=== PATIENT | male | born 1940 | race Caucasian/White ===

== ENCOUNTER 2018-11-04 20:07 | Inpatient (IN) ==
--- OUTSIDE RECORDS SUMMARY | 2018-11-04 20:10 | External Medical Summary | Continuity of Care Document ---
:1940 Author Name Salvatore Walker Address Unavailable Unavailable , Care Team Providers Name Role Phone Luz Walker Unavailable [email or web address], [email or web address] Unavailable Unavailable Problems Active medical history not documented Allergies and Adverse Reactions Allergy history not documented Medications Medications not documented Procedures Procedures not documented Immunizations Immunizations not documented Plan of Treatment Planned Observations Planned Goals not documented Results No Known Results Results not documented
[2018-11-04 21:00] LABS: Basophils # (auto) 0.03 K/uL (0-0.2); Basophils % (auto) 0.5 %; Eosinophils # (auto) 0.33 K/uL (0-0.5); Eosinophils % (auto) 5.1 %; Hematocrit (blood only) 44.5 % (42-52); Immature Granulocytes # (auto) 0.01 K/uL (0.00-0.02); Immature Granulocytes % (auto) 0.2 %; Lymphocytes # (auto) 1.67 K/uL (1.2-3.4); Lymphocytes % (auto) 26.1 %; Mean Corpuscular Volume 91.8 fL (80-100); Mean Platelet Volume 10.3 fL (7.4-10.4); Monocytes # (auto) 0.53 K/uL (0.11-0.59); Monocytes % (auto) 8.3 %; Neutrophils # (auto) 3.84 K/uL (1.4-6.5); Neutrophils % (auto) 59.8 %; Platelet Count 156 K/uL (130-400); RDW Coefficient of Variation 12.8 % (11.5-14.5); RDW Standard Deviation 42.7 fL (36.4-46.3); Red Blood Count 4.85 M/uL (4.7-6.1); White Blood Count 6.41 K/uL (4.8-10.8)
--- NOTE | 2018-11-04 21:07 | XRay Report ---
XR chest 1V portable HISTORY: 78 years-old Male near syncope, third degree HB acute syncope COMPARISON: Chest radiograph and CTA chest 08/01/2015 TECHNIQUE: Portable AP view of the chest FINDINGS: Cardiac silhouette is enlarged, unchanged. Prosthetic mitral valve redemonstrated. Wires about the me diastinum redemonstrated. No pneumothorax, pleural effusion or overt pulmonary edema. Bilateral retic ular nodular opacities with masslike consolidation of the upper lung zones and superior elevation of the debra redemonstrated suggestive of progressive massive fibrosis. Calcified mediastinal and hilar l ymph nodes. Degenerative changes of the shoulders and spine. IMPRESSION: 1. Cardiomegaly without acute process. 2. Interstitial lung disease with suggestion of progressive massive fibrosis. The above report was generated using voice recognition software. It may contain grammatical, syntax o r spelling errors. Electronically signed by: Tim Green M.D. 11/04/2018 9:06 PM
[2018-11-04 21:09] LABS: Alanine Aminotransferase 25 U/L (12-78); Albumin Level 3.7 gm/dl (3.4-5.0); Aspartate Aminotransferase 22 U/L (15-37); BUN Creatinine Ratio 16.6 (10-20); Blood Urea Nitrogen 19 mg/dl (7-18); Calcium 9.5 mg/dl (8.5-10.1); Carbon Dioxide 28 mmol/L (21-32); Chloride 102 mmol/L (98-107); Creatinine Clr Calc Pharmacy 62.7 ml/min; Est GFR (African American) 68.8; Est GFR (Non-African American) 59.4; Glucose 134 mg/dl (70-99); Magnesium 2.1 mg/dl (1.8-2.4); Potassium 3.5 mmol/L (3.5-5.1); Sodium 137 mmol/L (136-145)
[2018-11-04 21:14] LABS: Partial Thromboplastin Time 26.8 Seconds (21.0-31.0); Prothrombin Time 10.2 Seconds (9.0-12.0)
[2018-11-04 21:24] LABS: Albumin Globulin Ratio 0.8 (0.9-2); Alkaline Phosphatase 88 U/L (45-117); Bilirubin,Total 0.3 mg/dl (0.2-1); Globulin 4.4 gm/dl (2.5-4.0); Total Protein 8.1 gm/dl (6.4-8.2); Troponin I < 0.015 ng/ml (0-0.045)
[2018-11-04 21:47] LABS: Lyme Ab IgG w/WB Rflx Negative (Negative); Lyme Ab IgM w/WB Rflx Negative (Negative)
[2018-11-04] MEDS ORDERED: ACETAMINOPHEN 325 MG TAB PO PRN (23:28)
[2018-11-04] MEDS ORDERED: NITROGLYCERIN SL 0.4 MG/TAB TAB SL PRN (23:28)
[2018-11-04] MEDS ORDERED: ONDANSETRON INJ 2 MG/ML 2 ML VIAL IV PRN (23:28)
[2018-11-04] MEDS ORDERED: CARBOHYDRATES FOR HYPOGLYCEMIA PO PRN (23:45)
[2018-11-04] MEDS ORDERED: GLUCOSE 10 TABS/TUBE PO PRN (23:45)
[2018-11-04] MEDS ORDERED: GLUCOSE 40% GEL 15 GM TUBE PO PRN (23:45)
[2018-11-04] MEDS ORDERED: GLUCAGON FOR INJ 1 MG VIAL SQ PRN (23:45)
[2018-11-04] MEDS ORDERED: DEXTROSE 50% 50 ML SYRINGE IV PRN (23:45)
[2018-11-05] MEDS: ANORO ELLIPTA~ORDER AWAITING ACTION SCH ×4 (00:34→23:09)
--- NOTE | 2018-11-05 01:44 | Emergency Department Note ---
Entered by Ivette Wells acting as a scribe for History of Present Illness General Chief complaint: Arrhythmia/Palpitations Stated complaint: SKIPPING HEART Source: patient History of Present Illness Onset (ago): day(s) (several) Location: head Pain Consistency: + intermittent and + other (episodes) Maximum Pain Intensity: 0 Quality: + other (near syncope) Relieved By: + none Exacerbated By: + none The patient is a 78 year old male who presents to the Emergency Room with c omplaints of intermittent episodes of near syncope that began several days ago. The patient states that these episodes on their own, and states that nothing relieves or exacerbates these episodes. The patient was wearing a halter monitor and was found to be in complete heart block, by report. Pt states the cards fellow at [facility] called the pt and referred him to the closest ED. Home Medications Home Medications Medication Instructions Recorded Confirmed Type Anoro Ellipta 1 inh INHALATION DAILY 11/04/18 11/04/18 History amlodipine 2.5 mg PO DAILY 11/04/18 11/04/18 History amoxicillin 2,000 mg PO DIRECTED PRN 11/04/18 11/04/18 History aspirin [Aspir-81] 81 mg PO DAILY 11/04/18 11/04/18 History atorvastatin 10 mg PO HS 11/04/18 11/04/18 History cyanocobalamin (vitamin B-12) 1,000 mcg PO DAILY 11/04/18 11/04/18 History [Vitamin B-12] doxazosin 8 mg PO HS 11/04/18 11/04/18 History finasteride 5 mg PO QPM 11/04/18 11/04/18 History fluticasone propionate [Flonase 1 spray INTRANASAL DAILY 11/04/18 11/04/18 History Allergy Relief] hydrochlorothiazide 12.5 mg PO DAILY 11/04/18 11/04/18 History losartan 100 mg PO DAILY 11/04/18 11/04/18 History metformin 500 mg PO BIDM 11/04/18 11/04/18 History montelukast [Singulair] 10 mg PO PM 11/04/18 11/04/18 History acetaminophen [Mapap 325 mg PO Q6H PRN 5 Days #20 tab 11/06/18 Rx (acetaminophen)] metoprolol succinate 50 mg PO QAM 30 Days #30 tab 11/06/18 Rx Allergies Allergy/AdvReac Type Severity Reaction Status Date / Time pravastatin Allergy Severe MUSCLE, Verified 11/04/18 21:26 BODY ACHES Past Med/Surg History Medical History HTN (hypertension) (Chronic) COPD, moderate (Chronic) RBBB (Chronic) BPH (benign prostatic hyperplasia) (Chronic) Dyslipidemia (Chronic) Pulmonary fibrosis (Chronic) CAD (coronary artery disease) (Chronic) "cath 10/2011 - 60% mid LAD stenosis" Valvular cardiomyopathy (Resolved) Surgical History H/O inguinal hernia repair (Chronic) History of total left hip replacement (Chronic) "and revision" 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 and A total of 10 systems reviewed and were otherwise negative Physical Exam Vital Signs Vital Signs - 24 hr 11/06/18 10:29 Temperature 36.9 C Pulse Rate [Apical] 61 Respiratory Rate 16 Blood Pressure [Left Arm] 130/80 Blood Pressure [Right Arm] 148/68 H Pulse Oximetry 94 Vital signs reviewed. General: Well-appearing male, in no significant distress. HEENT: No scleral icterus, PERRLA, neck supple. Atraumatic. Cardiovascular: Regular rate and rhythm. Systolic ejection murmur with occasional ectopy. Pulmonary: Clear to auscultation bilaterally, normal work of breathing. Abdomen: Soft, nontender, nondistended, positive bowel sounds. Musculoskeletal: Atraumatic, no peripheral edema. Neurologic: Patient awake alert and oriented x 3. Skin: Warm, dry, no rash Course 2031: The patient was evaluated in room B1, and a complete history and physical examination were performed. 2214: I discussed the case with Dr. Carpenter Hospitalist who accepted the patient for further evaluation. Consultations Consultation #1: I discussed the case with Dr. Carpenter Hospitalist who accepted the patient for further evaluation. Time: 22:15 Administered Medications Discontinued Medications Acetaminophen (Tylenol) 650 mg PO Q4H PRN PRN Reason: Pain or Fever Stop: 12/04/18 23:27 Last Admin: 11/05/18 20:06 Dose: 650 mg Documented by: [id number] Amlodipine Besylate (Norvasc) 2.5 mg PO DAILY [facility] Stop: 12/05/18 08:59 Last Admin: 11/06/18 08:06 Dose: 2.5 mg Documented by: [id number] Admin: 11/05/18 07:23 Dose: 2.5 mg Documented by: [id number] Aspirin (Ecotrin Ectab) 81 mg PO DAILY [facility] Stop: 12/05/18 08:59 Last Admin: 11/06/18 08:06 Dose: 81 mg Documented by: [id number] Admin: 11/05/18 07:22 Dose: 81 mg Documented by: [id number] Atorvastatin Calcium (Lipitor) 10 mg PO HS [facility] Stop: 12/05/18 20:59 Last Admin: 11/05/18 20:05 Dose: 10 mg Documented by: [id number] Bacitracin (Bacitracin) Confirm Administered Dose 50,000 units .ROUTE .STK-MED ONE Stop: 11/05/18 10:59 Last Admin: 11/05/18 11:46 Dose: 50,000 units Documented by: [id number] Bupivacaine HCl (Sensorcaine 0.25% Inj) Confirm Administered Dose 30 ml .ROUTE .STK-MED ONE Stop: 11/05/18 10:59 Last Admin: 11/05/18 11:46 Dose: 30 ml Documented by: [id number] Cefazolin Sodium (Ancef) Confirm Administered Dose 2,000 mg .ROUTE .STK-MED ONE Stop: 11/05/18 11:10 Last Admin: 11/05/18 11:46 Dose: 2,000 mg Documented by: [id number] Cyanocobalamin (Vitamin B-12) 1,000 mcg PO DAILY [facility] Stop: 12/05/18 08:59 Last Admin: 11/06/18 08:06 Dose: 1,000 mcg Documented by: [id number] Admin: 11/05/18 07:23 Dose: 1,000 mcg Documented by: [id number] Doxazosin Mesylate (Cardura) 8 mg PO HS [facility] Stop: 12/05/18 20:59 Last Admin: 11/05/18 20:05 Dose: 8 mg Documented by: [id number] Fentanyl Citrate (Fentanyl Citrate) Confirm Administered Dose 100 mcg .ROUTE .STK-MED ONE Stop: 11/05/18 10:59 Last Increment: 11/05/18 12:38 Dose: 75 mcg Documented by: [id number] Finasteride (Proscar) 5 mg PO QPM [facility] Stop: 12/05/18 20:59 Last Admin: 11/05/18 20:04 Dose: 5 mg Documented by: [id number] Fluticasone Propionate (Flonase) 1 sprays NA DAILY [facility] Stop: 12/05/18 08:59 Last Admin: 11/06/18 08:06 Dose: Not Given Documented by: [id number] Admin: 11/05/18 07:20 Dose: Not Given Documented by: [id number] Hydrochlorothiazide (Hctz) 12.5 mg PO DAILY [facility] Stop: 12/05/18 08:59 Last Admin: 11/06/18 08:06 Dose: 12.5 mg Documented by: [id number] Admin: 11/05/18 07:22 Dose: 12.5 mg Documented by: [id number] Cefazolin Sodium (Ancef 2000mg) 2,000 mg in 15 mls @ 3.75 mls/min IV Q8H [facility]; Protocol Stop: 11/06/18 19:59 Last Admin: 11/06/18 04:14 Dose: 3.75 mls/min Documented by: [id number] Admin: 11/05/18 20:06 Dose: 3.75 mls/min Documented by: [id number] Insulin Aspart (Novolog Flexpen) 0 units SC ACHS [facility] Stop: 12/05/18 07:29 Last Admin: 11/06/18 11:43 Dose: Not Given Documented by: [id number] Cosigned by: [id number] Admin: 11/06/18 08:05 Dose: Not Given Documented by: [id number] Cosigned by: [id number] Admin: 11/05/18 21:20 Dose: Not Given Documented by: [id number] Cosigned by: [id number] Admin: 11/05/18 16:51 Dose: Not Given Documented by: [id number] Cosigned by: [id number] Admin: 11/05/18 11:35 Dose: Not Given Documented by: [id number] Cosigned by: [id number] Admin: 11/05/18 07:24 Dose: Not Given Documented by: [id number] Cosigned by: [id number] Lidocaine HCl (Xylocaine 1% (Local)) Confirm Administered Dose 20 ml .ROUTE .STK-MED ONE Stop: 11/05/18 10:59 Last Admin: 11/05/18 11:46 Dose: 20 ml Documented by: [id number] Losartan Potassium (Cozaar) 100 mg PO DAILY [facility] Stop: 12/05/18 08:59 Last Admin: 11/06/18 08:06 Dose: 100 mg Documented by: [id number] Admin: 11/05/18 07:20 Dose: Not Given Documented by: [id number] Metoprolol Succinate (Toprol Xl) 50 mg PO QAM [facility] Stop: 12/06/18 08:59 Last Admin: 11/06/18 09:14 Dose: 50 mg Documented by: [id number] Midazolam HCl (Versed) Confirm Administered Dose 5 mg .ROUTE .STK-MED ONE Stop: 11/05/18 10:59 Last Increment: 11/05/18 12:38 Dose: 3 mg Documented by: [id number] Miscellaneous (Order Awaiting Action) 1 ea N/A QS [facility] Stop: 12/05/18 00:00 Last Admin: 11/06/18 08:05 Dose: Not Given Documented by: [id number] Admin: 11/05/18 23:09 Dose: Not Given Documented by: [id number] Admin: 11/05/18 11:03 Dose: Not Given Documented by: [id number] Admin: 11/05/18 07:24 Dose: Not Given Documented by: [id number] Admin: 11/05/18 00:34 Dose: Not Given Documented by: [id number] Montelukast Sodium (Singulair) 10 mg PO PM [facility] Stop: 12/05/18 20:59 Last Admin: 11/05/18 20:04 Dose: 10 mg Documented by: [id number] Potassium Chloride (Klor-Con M20) 40 meq PO NOW STA Stop: 11/05/18 06:35 Last Admin: 11/05/18 07:21 Dose: 40 meq Documented by: [id number] Medical Decision Making Differential Diagnosis Differential diagnosis: Etiologies such as premature contractions, electrolyte abnormality, cardiac dysrhythmia, thyroid dysfunction, pulmonary embolism, infection, gastrointestinal, as well as others were entertained. Medical Records Attestation: I reviewed the patient's medical records. Home Medications Current Medication List: was personally reviewed by me Laboratory Data Attestation: I reviewed the patient's lab results. Result diagrams: 11/06/18 06:34 11/06/18 06:34 Lab Results 11/04/18 11/04/18 11/04/18 Range/Units 20:25 20:25 20:25 WBC 6.41 (4.8-10.8) K/uL RBC 4.85 (4.7-6.1) M/uL Hgb 16.0 (14.0-18.0) g/dL Hct 44.5 (42-52) % MCV 91.8 (80-100) fL MCH 33.0 (25-34) pg MCHC 36.0 (32-36) g/dL RDW Std Deviation 42.7 (36.4-46.3) fL RDW Coeff of Tyrell 12.8 (11.5-14.5) % Plt Count 156 (130-400) K/uL MPV 10.3 (7.4-10.4) fL Immature Gran % (Auto) 0.2 % Neut % (Auto) 59.8 % Lymph % (Auto) 26.1 % [place] % (Auto) 8.3 % Eos % (Auto) 5.1 % Baso % (Auto) 0.5 % Immature Gran # (Auto) 0.01 (0.00-0.02) K/uL Neut # (Auto) 3.84 (1.4-6.5) K/uL Lymph # (Auto) 1.67 (1.2-3.4) K/uL [place] # (Auto) 0.53 (0.11-0.59) K/uL Eos # (Auto) 0.33 (0-0.5) K/uL Baso # (Auto) 0.03 (0-0.2) K/uL PT 10.2 (9.0-12.0) Seconds INR 1.0 (0.9-1.1) APTT 26.8 (21.0-31.0) Seconds PTT Ratio 1.0 Sodium 137 (136-145) mmol/L Potassium 3.5 (3.5-5.1) mmol/L Chloride 102 (98-107) mmol/L Carbon Dioxide 28 (21-32) mmol/L Anion Gap 7.0 (3-11) BUN 19 H (7-18) mg/dl Creatinine 1.17 (0.6-1.4) mg/dl Est Cr Clr Drug Dosing 62.7 ml/min Est GFR ( Amer) 68.8 Est GFR (Non-Af Amer) 59.4 BUN/Creatinine Ratio 16.6 (10-20) Glucose 134 H (70-99) mg/dl POC Glucose (70-99) Estimat Average Glucose mg/dl Hemoglobin A1c (4.5-5.6) % Calcium 9.5 (8.5-10.1) mg/dl Magnesium 2.1 (1.8-2.4) mg/dl Total Bilirubin 0.3 (0.2-1) mg/dl AST 22 (15-37) U/L ALT 25 (12-78) U/L Alkaline Phosphatase 88 (45-117) U/L Troponin I < 0.015 (0-0.045) ng/ml Total Protein 8.1 (6.4-8.2) gm/dl Albumin 3.7 (3.4-5.0) gm/dl Globulin 4.4 H (2.5-4.0) gm/dl Albumin/Globulin Ratio 0.8 L (0.9-2) TSH 3.390 (0.300-4.500) uIu/ml Specimen Hemolysis Lyme Disease IgG Ab (Negative) Lyme Disease IgM Ab (Negative) 11/04/18 11/04/18 11/05/18 Range/Units 20:25 23:47 05:10 WBC 5.92 (4.8-10.8) K/uL RBC 4.62 L (4.7-6.1) M/uL Hgb 14.6 (14.0-18.0) g/dL Hct 42.5 (42-52) % MCV 92.0 (80-100) fL MCH 31.6 (25-34) pg MCHC 34.4 (32-36) g/dL RDW Std Deviation 42.7 (36.4-46.3) fL RDW Coeff of Tyrell 12.7 (11.5-14.5) % Plt Count 143 (130-400) K/uL MPV 9.9 (7.4-10.4) fL Immature Gran % (Auto) 0.0 % Neut % (Auto) 60.5 % Lymph % (Auto) 23.1 % [place] % (Auto) 11.0 % Eos % (Auto) 4.9 % Baso % (Auto) 0.5 % Immature Gran # (Auto) 0.00 (0.00-0.02) K/uL Neut # (Auto) 3.58 (1.4-6.5) K/uL Lymph # (Auto) 1.37 (1.2-3.4) K/uL [place] # (Auto) 0.65 H (0.11-0.59) K/uL Eos # (Auto) 0.29 (0-0.5) K/uL Baso # (Auto) 0.03 (0-0.2) K/uL PT (9.0-12.0) Seconds INR (0.9-1.1) APTT (21.0-31.0) Seconds PTT Ratio Sodium (136-145) mmol/L Potassium (3.5-5.1) mmol/L Chloride (98-107) mmol/L Carbon Dioxide (21-32) mmol/L Anion Gap (3-11) BUN (7-18) mg/dl Creatinine (0.6-1.4) mg/dl Est Cr Clr Drug Dosing ml/min Est GFR ( Amer) Est GFR (Non-Af Amer) BUN/Creatinine Ratio (10-20) Glucose (70-99) mg/dl POC Glucose (70-99) Estimat Average Glucose mg/dl Hemoglobin A1c (4.5-5.6) % Calcium (8.5-10.1) mg/dl Magnesium (1.8-2.4) mg/dl Total Bilirubin (0.2-1) mg/dl AST (15-37) U/L ALT (12-78) U/L Alkaline Phosphatase (45-117) U/L Troponin I < 0.015 (0-0.045) ng/ml Total Protein (6.4-8.2) gm/dl Albumin (3.4-5.0) gm/dl Globulin (2.5-4.0) gm/dl Albumin/Globulin Ratio (0.9-2) TSH (0.300-4.500) uIu/ml Specimen Hemolysis Lyme Disease IgG Ab Negative (Negative) Lyme Disease IgM Ab Negative (Negative) 11/05/18 11/05/18 11/05/18 Range/Units 05:10 05:10 07:39 WBC (4.8-10.8) K/uL RBC (4.7-6.1) M/uL Hgb (14.0-18.0) g/dL Hct (42-52) % MCV (80-100) fL MCH (25-34) pg MCHC (32-36) g/dL RDW Std Deviation (36.4-46.3) fL RDW Coeff of Tyrell (11.5-14.5) % Plt Count (130-400) K/uL MPV (7.4-10.4) fL Immature Gran % (Auto) % Neut % (Auto) % Lymph % (Auto) % [place] % (Auto) % Eos % (Auto) % Baso % (Auto) % Immature Gran # (Auto) (0.00-0.02) K/uL Neut # (Auto) (1.4-6.5) K/uL Lymph # (Auto) (1.2-3.4) K/uL [place] # (Auto) (0.11-0.59) K/uL Eos # (Auto) (0-0.5) K/uL Baso # (Auto) (0-0.2) K/uL PT (9.0-12.0) Seconds INR (0.9-1.1) APTT (21.0-31.0) Seconds PTT Ratio Sodium 138 (136-145) mmol/L Potassium 3.4 L (3.5-5.1) mmol/L Chloride 106 (98-107) mmol/L Carbon Dioxide 28 (21-32) mmol/L Anion Gap 4.0 (3-11) BUN 20 H (7-18) mg/dl Creatinine 1.05 (0.6-1.4) mg/dl Est Cr Clr Drug Dosing 63.6 ml/min Est GFR ( Amer) 78.4 Est GFR (Non-Af Amer) 67.7 BUN/Creatinine Ratio 19.5 (10-20) Glucose 114 H (70-99) mg/dl POC Glucose 124 H (70-99) Estimat Average Glucose 143 mg/dl Hemoglobin A1c 6.6 H (4.5-5.6) % Calcium 8.6 (8.5-10.1) mg/dl Magnesium 2.0 (1.8-2.4) mg/dl Total Bilirubin (0.2-1) mg/dl AST (15-37) U/L ALT (12-78) U/L Alkaline Phosphatase (45-117) U/L Troponin I < 0.015 (0-0.045) ng/ml Total Protein (6.4-8.2) gm/dl Albumin (3.4-5.0) gm/dl Globulin (2.5-4.0) gm/dl Albumin/Globulin Ratio (0.9-2) TSH (0.300-4.500) uIu/ml Specimen Hemolysis Lyme Disease IgG Ab (Negative) Lyme Disease IgM Ab (Negative) 11/05/18 11/05/18 11/06/18 Range/Units 16:48 21:06 06:34 WBC 6.44 (4.8-10.8) K/uL RBC 4.87 (4.7-6.1) M/uL Hgb 15.6 (14.0-18.0) g/dL Hct 45.0 (42-52) % MCV 92.4 (80-100) fL MCH 32.0 (25-34) pg MCHC 34.7 (32-36) g/dL RDW Std Deviation 43.9 (36.4-46.3) fL RDW Coeff of Tyrell 12.9 (11.5-14.5) % Plt Count 139 (130-400) K/uL MPV 9.9 (7.4-10.4) fL Immature Gran % (Auto) 0.2 % Neut % (Auto) 62.6 % Lymph % (Auto) 22.4 % [place] % (Auto) 10.6 % Eos % (Auto) 4.0 % Baso % (Auto) 0.2 % Immature Gran # (Auto) 0.01 (0.00-0.02) K/uL Neut # (Auto) 4.04 (1.4-6.5) K/uL Lymph # (Auto) 1.44 (1.2-3.4) K/uL [place] # (Auto) 0.68 H (0.11-0.59) K/uL Eos # (Auto) 0.26 (0-0.5) K/uL Baso # (Auto) 0.01 (0-0.2) K/uL PT (9.0-12.0) Seconds INR (0.9-1.1) APTT (21.0-31.0) Seconds PTT Ratio Sodium (136-145) mmol/L Potassium (3.5-5.1) mmol/L Chloride (98-107) mmol/L Carbon Dioxide (21-32) mmol/L Anion Gap (3-11) BUN (7-18) mg/dl Creatinine (0.6-1.4) mg/dl Est Cr Clr Drug Dosing ml/min Est GFR ( Amer) Est GFR (Non-Af Amer) BUN/Creatinine Ratio (10-20) Glucose (70-99) mg/dl POC Glucose 98 109 H (70-99) Estimat Average Glucose mg/dl Hemoglobin A1c (4.5-5.6) % Calcium (8.5-10.1) mg/dl Magnesium (1.8-2.4) mg/dl Total Bilirubin (0.2-1) mg/dl AST (15-37) U/L ALT (12-78) U/L Alkaline Phosphatase (45-117) U/L Troponin I (0-0.045) ng/ml Total Protein (6.4-8.2) gm/dl Albumin (3.4-5.0) gm/dl Globulin (2.5-4.0) gm/dl Albumin/Globulin Ratio (0.9-2) TSH (0.300-4.500) uIu/ml Specimen Hemolysis Lyme Disease IgG Ab (Negative) Lyme Disease IgM Ab (Negative) 11/06/18 11/06/18 11/06/18 Range/Units 06:34 07:17 11:41 WBC (4.8-10.8) K/uL RBC (4.7-6.1) M/uL Hgb (14.0-18.0) g/dL Hct (42-52) % MCV (80-100) fL MCH (25-34) pg MCHC (32-36) g/dL RDW Std Deviation (36.4-46.3) fL RDW Coeff of Tyrell (11.5-14.5) % Plt Count (130-400) K/uL MPV (7.4-10.4) fL Immature Gran % (Auto) % Neut % (Auto) % Lymph % (Auto) % [place] % (Auto) % Eos % (Auto) % Baso % (Auto) % Immature Gran # (Auto) (0.00-0.02) K/uL Neut # (Auto) (1.4-6.5) K/uL Lymph # (Auto) (1.2-3.4) K/uL [place] # (Auto) (0.11-0.59) K/uL Eos # (Auto) (0-0.5) K/uL Baso # (Auto) (0-0.2) K/uL PT (9.0-12.0) Seconds INR (0.9-1.1) APTT (21.0-31.0) Seconds PTT Ratio Sodium 138 (136-145) mmol/L Potassium 3.8 (3.5-5.1) mmol/L Chloride 103 (98-107) mmol/L Carbon Dioxide 28 (21-32) mmol/L Anion Gap 7.0 (3-11) BUN 21 H (7-18) mg/dl Creatinine 1.24 (0.6-1.4) mg/dl Est Cr Clr Drug Dosing 53.9 ml/min Est GFR ( Amer) 64.1 Est GFR (Non-Af Amer) 55.3 BUN/Creatinine Ratio 16.5 (10-20) Glucose 130 H (70-99) mg/dl POC Glucose 133 H 135 H (70-99) Estimat Average Glucose mg/dl Hemoglobin A1c (4.5-5.6) % Calcium 9.0 (8.5-10.1) mg/dl Magnesium (1.8-2.4) mg/dl Total Bilirubin (0.2-1) mg/dl AST (15-37) U/L ALT (12-78) U/L Alkaline Phosphatase (45-117) U/L Troponin I (0-0.045) ng/ml Total Protein (6.4-8.2) gm/dl Albumin (3.4-5.0) gm/dl Globulin (2.5-4.0) gm/dl Albumin/Globulin Ratio (0.9-2) TSH (0.300-4.500) uIu/ml Specimen Hemolysis Lyme Disease IgG Ab (Negative) Lyme Disease IgM Ab (Negative) Imaging Data Radiologist's Impression: Radiology results as stated below per my review and the radiologist's interpretation: XR chest 1V portable HISTORY: 78 years-old Male near syncope, third degree HB acute syncope COMPARISON: Chest radiograph and CTA chest 08/01/2015 TECHNIQUE: Portable AP view of the chest FINDINGS: Cardiac silhouette is enlarged, unchanged. Prosthetic mitral valve redemonstrated. Wires about the mediastinum redemonstrated. No pneumothorax, pleural effusion or overt pulmonary edema. Bilateral reticular nodular opacities with masslike consolidation of the upper lung zones and superior elevation of the debra redemonstrated suggestive of progressive massive fibrosis. Calcified mediastinal and hilar lymph nodes. Degenerative changes of the shoulders and spine. IMPRESSION: 1. Cardiomegaly without acute process. 2. Interstitial lung disease with suggestion of progressive massive fibrosis. The above report was generated using voice recognition software. It may contain grammatical, syntax or spelling errors. Electronically signed by: Tim Green M.D. 11/04/2018 9:06 PM ECG Data Attestation: I personally reviewed and interpreted this ECG as follows: Indication: syncope Rate (beats per minute): 72 Rhythm: sinus rhythm Findings: + other (LVH; repolarization abnormality; previous septal infarct; QTC 483), + PVC (occasional) and + RBBB Blood Pressure Blood Pressure Findings: Elevated blood pressure Blood Pressure Disposition: further management by hospitalist MDM Narrative This pt was evaluated and appeared to be in no distress. IV access was obtained and lab work was drawn. Pt was placed on the secured entrance monitor and found to be in a sinus rhythm with replorization abnl. Lab work reveals no acute abnl. Holter report was obtained and reveals NSVT and "high degree heart block." Pt was informed of the findings and will be evaluated by the hospitalist for further management. Impression & Plan Non-sustained ventricular tachycardia, Near syncope, Third degree heart block Discharge Plan Visit Data *Final* Discharge Date/Time: 11/04/18 23:13 Chief Complaint: Arrhythmia/Palpitations Stated Complaint: SKIPPING HEART ED Provider: Kaitlyn Allan Discharge Problem: Non-sustained ventricular tachycardia, Near syncope, Third degree heart block Patient Disposition: Admitted As Inpatient Condition: Good Discharge Instructions Interventions: ED Discharge Assessment Last Done: 11/04/18 23:13 The scribe's documentation has been prepared under my direction and personally reviewed by me in its entirety. I confirm that the note above accurately reflects all work, treatment, procedures, and medical decision making performed by me.
[2018-11-05 05:35] LABS: Basophils # (auto) 0.03 K/uL (0-0.2); Basophils % (auto) 0.5 %; Eosinophils # (auto) 0.29 K/uL (0-0.5); Eosinophils % (auto) 4.9 %; Hematocrit (blood only) 42.5 % (42-52); Hemoglobin 14.6 g/dL (14.0-18.0); Lymphocytes # (auto) 1.37 K/uL (1.2-3.4); Lymphocytes % (auto) 23.1 %; Mean Corpuscular Hgb Conc 34.4 g/dL (32-36); Mean Platelet Volume 9.9 fL (7.4-10.4); Monocytes # (auto) 0.65 K/uL (0.11-0.59); Neutrophils # (auto) 3.58 K/uL (1.4-6.5); Neutrophils % (auto) 60.5 %; Platelet Count 143 K/uL (130-400); RDW Coefficient of Variation 12.7 % (11.5-14.5); RDW Standard Deviation 42.7 fL (36.4-46.3); Red Blood Count 4.62 M/uL (4.7-6.1); White Blood Count 5.92 K/uL (4.8-10.8)
[2018-11-05 05:36] LABS: Estimated Average Glucose 143 mg/dl; Hemoglobin A1C 6.6 % (4.5-5.6)
[2018-11-05 06:06] LABS: BUN Creatinine Ratio 19.5 (10-20); Blood Urea Nitrogen 20 mg/dl (7-18); Calcium 8.6 mg/dl (8.5-10.1); Carbon Dioxide 28 mmol/L (21-32); Chloride 106 mmol/L (98-107); Creatinine Clr Calc Pharmacy 63.6 ml/min; Est GFR (African American) 78.4; Est GFR (Non-African American) 67.7; Glucose 114 mg/dl (70-99); Potassium 3.4 mmol/L (3.5-5.1); Sodium 138 mmol/L (136-145)
[2018-11-05 06:10] LABS: Troponin I < 0.015 ng/ml (0-0.045)
[2018-11-05] MEDS ORDERED: POTASSIUM CHLORIDE 20 MEQ TABCR PO STA (06:34)
[2018-11-05] MEDS: FLUTICASONE PROPIONATE NA SPR 16 GM BTL SCH (07:20)
[2018-11-05] MEDS: LOSARTAN POTASSIUM 50 MG TAB PO SCH (07:20)
[2018-11-05] MEDS: ASPIRIN 81 MG ECTAB PO SCH (07:22)
[2018-11-05] MEDS: hydroCHLOROthiazide 25 MG TAB PO SCH (07:22)
[2018-11-05] MEDS: CYANOCOBALAMIN 500 MCG TABLET (VITAMIN B-12) PO SCH (07:23)
[2018-11-05] MEDS: AMLODIPINE BESYLATE 5 MG TAB PO SCH (07:23)
[2018-11-05] MEDS: INSULIN ASPART 100 UNITS/ML 3 ML PEN SC SCH ×4 (07:24→21:20)
--- NOTE | 2018-11-05 08:09 | History and Physical Report ---
DATE OF ADMISSION: 11/04/2018 CHIEF COMPLAINT: Presyncope. HISTORY OF PRESENT ILLNESS: This is a 78-year-old male with past medical history significant for diabetes, hyperlipidemia, chronic obstructive pulmonary disease, chronic rhinitis, coal workers' pneumoconiosis, venous insufficiency, hypertension, coronary artery disease, B12 deficiency, benign prostatic hypertrophy, status post mitral valve repair who was having presyncope kind of episodes and Cardiology put him on Zio monitor for 2 weeks, mailed Zio monitor last and he got a call from [facility] today stating that he needs to go to the Emergency Room as he was having occasional high grade heart blocks.. The patient states last episode of his presyncope was last Friday when he was driving, he generally blacks out for a few seconds but he does not totally pass out, never fell down and when he was called today he was told not to drive. The patient currently is resting comfortably and hemodynamically stable. Denies any chest pain. No shortness of breath. He has a cough from his postnasal drip sometimes brings mucus. Denies any fever or chills. No headache. No dizziness. No blurred vision. He has some pain in the close to the left ear on and off, shooting pain. Currently, no pain. Appetite is good. No difficulty swallowing. No nausea. No abdominal pain. Usually normal bowel and bladder movements. He gets a colonoscopy every 3 years because he has precancerous polyps. Last colonoscopy was 8 months ago. For the last 1 month, he says he is having some irregular bowel movements. No blood in the stools. No black stools. No hematuria. No swelling in the legs. No rash. Ambulates without any help. Lives with his . ALLERGIES: PRAVASTATIN. PAST MEDICAL HISTORY: As mentioned above. PAST SURGICAL HISTORY: Colonoscopy, needle punch biopsy of the prostate, mitral valve valvuloplasty with prosthetic ring, inguinal hernia repair, left hip surgery, left total hip replacement. MEDICATIONS: The patient is on amlodipine 2.5 mg p.o. daily, Flonase 2 sprays into each nostril daily, doxazosin 8 mg 1 tablet at bedtime, Cozaar 100 mg p.o. daily, Proscar 5 mg p.o. daily, metformin 500 mg p.o. b.i.d., atorvastatin 10 mg p.o. daily, Singulair 10 mg p.o. daily, hydrochlorothiazide 12.5 mg p.o. daily, Coreg 6.25 mg in the morning and 3.125 mg in the evening, Anoro Ellipta 62.5/25 mcg 1 puff inhalation daily, B12 1000 mcg p.o. daily, aspirin 81 mg p.o. daily and amoxicillin 2000 mg p.o. 1 hour prior to any procedures. FAMILY HISTORY: Significant for brother had leukemia. Mother had myocardial infarction and hypertension. Father has hypertension. Cousin has prostrate cancer. SOCIAL HISTORY: and lives with his . Former smoker, quit in 1990. Smoked one and a half pack a day for 30 years. Alcohol occasionally. No drug use. REVIEW OF SYMPTOMS: As per HPI. Rest of review of symptoms negative. PHYSICAL EXAMINATION: GENERAL: The patient is of moderate build, not in acute distress. VITAL SIGNS: Temperature 36.7, pulse 64, respiratory rate 24, blood pressure 136/78, oxygen 93% on room air. HEENT: No pallor. No icterus. Pupils are equal, round and reactive to light. left ear examined, no erythema or drainage seen. NECK: No JVD. No neck masses. No carotid bruits. CARDIOVASCULAR: S1, S2 heard. Regular rate and rhythm. No murmur. No gallop. RESPIRATORY SYSTEM: Normal AP diameter. No accessory muscle use. No wheezing. No crackles. ABDOMEN: Soft. Bowel sounds present. Nontender. No distention. CENTRAL NERVOUS SYSTEM: Cranial nerves II through XII grossly intact. Nonfocal. EXTREMITIES: No edema. No erythema. LABORATORY DATA: WBC 6.4, hemoglobin 16, hematocrit 44.5 and platelets 156. PT 10.2. INR 1. APTT 26.8. Sodium 137, potassium 3.5, chloride 102, bicarb 28, BUN 19, creatinine 1.1, serum glucose 134, calcium 9.5, magnesium 2.1, total bilirubin 0.3, AST 22, ALT 25, and alkaline phosphatase 88. Troponin I less than 0.015. TSH 3.9. Lyme screen negative. Chest x-ray, cardiomegaly without acute process, interstitial lung disease with suggestion of massive fibrosis. Electrocardiogram, sinus rhythm with occasional premature ventricular contractions at a rate of 72, right bundle-branch block and left ventricular hypertrophy. ASSESSMENT AND PLAN: This is a 78-year-old male with presyncope on Zio monitor, advised to come to the hospital because Zio monitor showed nonsustained ventricular tachycardia and high grade heart block. 1. Occasional High grade heart block, nonsustained ventricular tachycardia on recent Zio monitor. He was called by the store detective and advised to come to the hospital. The patient was having presyncope kind of episodes lately that is the reason why he was put on Zio Patch. We will hold his Coreg. Currently, his heart rate is fine, asymptomatic. We will closely monitor in the Tele Floor. We will keep him n.p.o. after midnight and consult Cardiology for possible pacemaker placement . On pacer pads. 2. History of myxomatous mitral valve disease, status post complex mitral valve repair in 09/2011 with resuspension of the posterior leaflet with [place] cord and 28 mm annuloplasty ring. History of valvular induced cardiomyopathy with return of normal LV systolic function postoperatively. His recent echocardiogram in 10/2018 showed normal ejection fraction. Management as per Cardiology. 3. History of moderate coronary disease with 60% mid left anterior descending stenosis, left cardiac cath in 2011 and last stress test in 09/2017 was negative for stress-induced ischemia. Continue his home medications of statin, aspirin and Cozaar. Holding Coreg for his heart block. Currently asymptomatic. Closely monitor. 4. 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 Continue his home inhalers, currently stable. 5. Diabetes. Hold his metformin. We will place him on insulin sliding scale. Follow his HbA1c level. 6. Hypertension. Continue his amlodipine, Cozaar, holding Coreg. Continue hydrochlorothiazide, we will monitor his blood pressure. 7. Benign prostatic hypertrophy, continue doxazosin, Proscar. 8. Hyperlipidemia, continue statin. 9. B12 deficiency, on supplement. 10. Chronic rhinitis, on Singulair and Flonase. 11. Deep venous thrombosis prophylaxis, sequential compression devices for now. 12. Disposition: Close monitoring in the tele floor. Level 1 full code. MTDD
--- NOTE | 2018-11-05 08:38 | Cardiology Consultation ---
Date of Consultation November 05, 2018 Assessment & Plan (1) Near syncope: (2) Third degree heart block: (3) Non-sustained ventricular tachycardia: 78-year-old male with a past medical history of myxomatous mitral valve disease who underwent complex surgical mitral valve repair in 2011. His preoperative cardiac catheterization performed in 2011 revealed a moderate mid LAD of obstruction in the range of 60 to 70% which is been treated medically. His most recent ischemic work-up took place in 2017 with nonischemic nuclear stress test noted at that time. The patient does not describe any symptoms of recent angina. Dating back to last summer he has had multiple episodes of feeling as if he is going to pass out. He has had 3 episodes in the last 5 weeks [address] while he was wearing a 2-week manager cardiac. The patient states that he was not aware of the symptom indicator button and therefore he did not utilize it. He had one episode that reproduced his symptoms. He wrote it down in the diary. The diary entry is written on his monitor is being 10/17/2018 at 12:30 PM and correlated with sinus rhythm and frequent PVCs. A 7.3 second pause however was observed on 10/17/2018 at 12:39 PM I think that this episode likely correlates with the patient's symptoms as he struggled to find the diary and a pen and he describes that by the time he rated down he was estimating the time. His left ventricular systolic function had apparently been reduced at the time of his initial surgery, but is normalized on serial studies over the years and his ejection fraction was most recently documented be normal last month. The patient has baseline conduction system disease with noted long first-degree AV block and bifascicular block on his baseline outpatient EKG and his current EKG is relatively unchanged. Medication changes had previously been made due to his near syncopal episode symptoms. He is on carvedilol 3.125 mg in the evening and 6.25 mg in the morning. Beta-blockers obviously indicated because of his frequent ventricular ectopy and his history of coronary disease, and given the profound nature of the patient's past, I do not think that simply holding his beta-kieran would be a beneficial treatment for him. I am going to request EP consultation for further evaluation. I discussed the case with Dr Hernandez. Patient to remain NPO except medications. History of Present Illness Attending Physician: Andrew Beyer MD History of Present Illness Mike Hogan is a 78-year-old male seen in cardiology consultation per the r jaspalest of Dr. Barajas for the assessment of recurrent syncopal episodes and abnormal Zio manager cardiac. The patient's primary consultant nurse is Dr. Kenji Morrison of our practice. The patient most recently been seen by Jorden Asher of our practice last month in October 2018. At that time the patient described several episodes of near syncope that he is noted since 2017. He recalls that the first episode took place at home while he was standing. He felt a "darkness "come on and felt like he was going to pass out. He held onto a railing and sat down on a step and he states the episode passed within 30 seconds. More recently he was walking in from the parking lot to a local [employer] store and while in the store he had an episode, he braced himself on the shelves felt the darkness again and then recovered without passing out. In the past 5 weeks he has had 3 more episodes, [address] on October 17, 2018 while he was wearing a manager cardiac. He was seen in cardiology clinic and his EKG was notable for borderline first- degree AV block as well as bifascicular block pattern with right bundle branch block left anterior fascicular block. Due to his symptoms and his underlying conduction system disease he had been referred for a 2-week manager cardiac that he wore from 10/15/2018 until 10/29/2018. The manager cardiac revealed predominant underlying sinus rhythm with first- degree AV block and an interventricular conduction delay was noted. 90 short salvos of nonsustained ventricular tachycardia were noted the fastest of which was 4 beats in duration with max rate of 169 bpm, and the longest of which was 7 beats in duration with average rate of 112 bpm. Frequent isolated jugular ectopy was noted with a PVC burden of 10.5%. 17 supraventricular tachycardia runs occurred the longest of which was 7 beats in duration. Most concerning 3 pauses occurred the longest of which was 7.3 seconds in duration with rhythm strip is suggestive of possible high-grade AV block. Telemetry since admission reveals sinus rhythm with interventricular conduction delay noted and occasional PVCs including several ventricular triplets. No pauses noted overnight. Allergies Allergy/AdvReac Type Severity Reaction Status Date / Time pravastatin Allergy Severe MUSCLE, Verified 11/04/18 21:26 BODY ACHES Home Medications Home Medications Medication Instructions Recorded Confirmed Type amlodipine 2.5 mg PO DAILY 11/04/18 11/04/18 History amoxicillin 2,000 mg PO DIRECTED PRN 11/04/18 11/04/18 History aspirin [Aspir-81] 81 mg PO DAILY 11/04/18 11/04/18 History atorvastatin 10 mg PO HS 11/04/18 11/04/18 History carvedilol 3.125 mg PO QPM 11/04/18 11/04/18 History carvedilol 6.25 mg PO QAM 11/04/18 11/04/18 History cyanocobalamin (vitamin B-12) 1,000 mcg PO DAILY 11/04/18 11/04/18 History [Vitamin B-12] doxazosin 8 mg PO HS 11/04/18 11/04/18 History finasteride 5 mg PO QPM 11/04/18 11/04/18 History fluticasone propionate [Flonase 1 spray INTRANASAL DAILY 11/04/18 11/04/18 History Allergy Relief] hydrochlorothiazide 12.5 mg PO DAILY 11/04/18 11/04/18 History losartan 100 mg PO DAILY 11/04/18 11/04/18 History metformin 500 mg PO BIDM 11/04/18 11/04/18 History montelukast [Singulair] 10 mg PO PM 11/04/18 11/04/18 History umeclidinium-vilanterol [Anoro 1 inh INHALATION DAILY 11/04/18 11/04/18 History Ellipta] Patient History Medical History HTN (hypertension) (Chronic) COPD, moderate (Chronic) RBBB (Chronic) BPH (benign prostatic hyperplasia) (Chronic) Dyslipidemia (Chronic) Pulmonary fibrosis (Chronic) CAD (coronary artery disease) (Chronic) "cath 10/2011 - 60% mid LAD stenosis" Valvular cardiomyopathy (Resolved) Surgical History H/O inguinal hernia repair (Chronic) History of total left hip replacement (Chronic) "and revision" 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" Social History Preferred Language: Andorran Communication Ability: Effective Beliefs That Will Affect Care: None Current Living Situation: Spouse Other Information That Helps Us Care for You: No Feels Safe at Home: Yes Safety Concerns: Feels Safe At This Time Smoking Status: Former smoker Do You Dip or Chew Tobacco: No Hx Alcohol Use: No Hx Substance Use: No Review of Systems Review of Systems: All systems reviewed & are unremarkable except as noted in HPI & below Physical Exam Physical Exam: General: no acute distress and stated age Eyes: conjunctiva are pink and non-injected, sclera clear Neck: normal jugular venous pulse, no hepatojugular reflux Chest: normal shape and normal respiratory effort -Well-healed right thoracotomy incision from previous mitral valve Lungs: clear to auscultation and percussion Cardiac Exam: - regular heart sounds, no murmurs, rubs, or gallops, no jugular venous distention Abdomen: abdomen soft, non-tender, no abnormal masses and no hepatosplenomegaly Musculoskeletal: no gait disturbance, no weakness Extremities: no edema and no cyanosis Neuro:awake, coversant, follows commands, no focal motor deficits Psych: appropriate affect and insight. Results & Data Vital Signs (Past 12 Hours) Vital Signs Temp Pulse Pulse Resp BP BP BP 11/05/18 07:26 36.6 C 62 18 136/77 11/05/18 03:38 36.7 C 64 17 109/63 11/05/18 00:00 70 11/04/18 23:28 36.6 C 59 L 18 168/86 H 11/04/18 23:01 70 19 145/91 H 11/04/18 22:31 64 24 136/78 11/04/18 22:01 63 19 145/84 H 11/04/18 21:31 65 20 138/79 11/04/18 21:01 68 22 151/89 H 11/04/18 20:34 73 19 182/99 H Pulse Ox 11/05/18 07:26 92 11/05/18 03:38 94 11/05/18 00:00 11/04/18 23:28 93 11/04/18 23:01 94 11/04/18 22:31 93 11/04/18 22:01 94 11/04/18 21:31 94 11/04/18 21:01 96 11/04/18 20:34 96 Laboratory Results Cardiac Enzymes 11/04/18 11/04/18 11/05/18 Range/Units 20:25 23:47 05:10 AST 22 (15-37) U/L Troponin I < 0.015 < 0.015 < 0.015 (0-0.045) ng/ml Coagulation 11/04/18 Range/Units 20:25 PT 10.2 (9.0-12.0) Seconds APTT 26.8 (21.0-31.0) Seconds CBC 11/04/18 11/05/18 Range/Units 20:25 05:10 WBC 6.41 5.92 (4.8-10.8) K/uL RBC 4.85 4.62 L (4.7-6.1) M/uL Hgb 16.0 14.6 (14.0-18.0) g/dL Hct 44.5 42.5 (42-52) % Plt Count 156 143 (130-400) K/uL Neut # (Auto) 3.84 3.58 (1.4-6.5) K/uL Lymph # (Auto) 1.67 1.37 (1.2-3.4) K/uL Irion # (Auto) 0.53 0.65 H (0.11-0.59) K/uL Eos # (Auto) 0.33 0.29 (0-0.5) K/uL Baso # (Auto) 0.03 0.03 (0-0.2) K/uL Comprehensive Metabolic Panel 11/04/18 11/05/18 Range/Units 20:25 05:10 Sodium 137 138 (136-145) mmol/L Potassium 3.5 3.4 L (3.5-5.1) mmol/L Chloride 102 106 (98-107) mmol/L Carbon Dioxide 28 28 (21-32) mmol/L BUN 19 H 20 H (7-18) mg/dl Creatinine 1.17 1.05 (0.6-1.4) mg/dl Glucose 134 H 114 H (70-99) mg/dl Calcium 9.5 8.6 (8.5-10.1) mg/dl AST 22 (15-37) U/L ALT 25 (12-78) U/L Alkaline Phosphatase 88 (45-117) U/L Total Protein 8.1 (6.4-8.2) gm/dl Albumin 3.7 (3.4-5.0) gm/dl Intake and Output 11/04/18 11/05/18 11/05/18 22:59 06:59 14:59 Output Total 450 / 450 Balance -450 / -450 Output: Urine 450 / 450 Other: Other Intake Source NPO/CHIPS # Unmeasured Voids 700 Weight 96.6 kg 86 kg Diagnostic Findings EKG performed 11/05/2018 at 6:54 AM revealed sinus rhythm at 63 bpm, long first- degree AV block, MN interval 240 ms, right bundle branch block, QRS duration 162 ms, age undetermined septal infarction pattern versus right bundle branch block. Transthoracic echocardiogram performed as an outpatient on 10/15/2018: There is evidence of a prior mitral valve annuloplasty and repair. Mitral stenosis is absent. Significant mitral valve regurgitation is absent. The qualitative left ventricular ejection fraction was normal at 55 to 59%. No regional wall motion abnormalities were described. Medications Administered Current Inpatient Medications Acetaminophen (Tylenol) 650 mg PO Q4H PRN PRN Reason: Pain or Fever Stop: 12/04/18 23:27 Amlodipine Besylate (Norvasc) 2.5 mg PO DAILY [facility] Stop: 12/05/18 08:59 Last Admin: 11/05/18 07:23 Dose: 2.5 mg Documented by: Aspirin (Ecotrin Ectab) 81 mg PO DAILY [facility]LEX Stop: 12/05/18 08:59 Last Admin: 11/05/18 07:22 Dose: 81 mg Documented by: Atorvastatin Calcium (Lipitor) 10 mg PO HS [facility] Stop: 12/05/18 20:59 Cyanocobalamin (Vitamin B-12) 1,000 mcg PO DAILY [facility] Stop: 12/05/18 08:59 Last Admin: 11/05/18 07:23 Dose: 1,000 mcg Documented by: Dextrose (Dextrose 50%) 25 - 50 ml IV UD PRN; Protocol PRN Reason: Hypoglycemia Protocol Stop: 12/04/18 23:44 Doxazosin Mesylate (Cardura) 8 mg PO HS [facility] Stop: 12/05/18 20:59 Finasteride (Proscar) 5 mg PO QPM [facility] Stop: 12/05/18 20:59 Fluticasone Propionate (Flonase) 1 sprays NA DAILY [facility] Stop: 12/05/18 08:59 Last Admin: 11/05/18 07:20 Dose: Not Given Documented by: Glucagon (Glucagen) 1 mg SQ UD PRN; Protocol PRN Reason: Hypoglycemia Protocol Stop: 12/04/18 23:44 Glucose (Glucose 40%) 15 - 30 gm PO UD PRN; Protocol PRN Reason: Hypoglycemia Protocol Stop: 12/04/18 23:44 Glucose (Dex4 Glucose) 4 - 8 tabs PO UD PRN; Protocol PRN Reason: Hypoglycemia Protocol Stop: 12/04/18 23:44 Hydrochlorothiazide (Hctz) 12.5 mg PO DAILY [facility] Stop: 12/05/18 08:59 Last Admin: 11/05/18 07:22 Dose: 12.5 mg Documented by: Insulin Aspart (Novolog Flexpen) 0 units SC ACHS [facility] Stop: 12/05/18 07:29 Last Admin: 11/05/18 07:24 Dose: Not Given Documented by: Losartan Potassium (Cozaar) 100 mg PO DAILY [facility] Stop: 12/05/18 08:59 Last Admin: 11/05/18 07:20 Dose: Not Given Documented by: Miscellaneous (Order Awaiting Action) 1 ea N/A QS [facility] Stop: 12/05/18 00:00 Last Admin: 11/05/18 07:24 Dose: Not Given Documented by: Miscellaneous (Carbohydrates For Hypoglycemia) 15 - 30 gm PO UD PRN PRN Reason: Hypoglycemia Treatment Stop: 12/04/18 23:44 Montelukast Sodium (Singulair) 10 mg PO PM [facility] Stop: 12/05/18 20:59 Nitroglycerin (Nitrostat) 0.4 mg SL UD PRN PRN Reason: Chest Pain Stop: 12/04/18 23:27 Ondansetron HCl (Zofran) 4 mg IV Q6H PRN PRN Reason: Nausea Stop: 12/04/18 23:27
[2018-11-05] MEDS ORDERED: MIDAZOLAM HCL 5 MG/ML 1 ML VIAL ONE (10:58)
[2018-11-05] MEDS ORDERED: BACITRACIN INJ 50,000 UNIT VIAL ONE (10:58)
[2018-11-05] MEDS ORDERED: fentaNYL citrate 100 MCG/2 ML VIAL ONE (10:58)
[2018-11-05] MEDS ORDERED: BUPIVACAINE 0.25% 30 ML VIAL ONE (10:58)
[2018-11-05] MEDS ORDERED: LIDOCAINE HCL 1% 20 ML VIAL ONE (10:58)
[2018-11-05] MEDS ORDERED: CEFAZOLIN 250 MG/ML 1 GM VIAL ONE (11:09)
--- NOTE | 2018-11-05 11:37 | Cardiology Consultation ---
Date of Consultation November 05, 2018 Assessment & Plan (1) Near syncope: I think this clearly correlates with his episode of ventricular asystole and heart block. Patient has significant baseline conduction disease. The timing of his symptoms correlate quite well with the findings on his ambulatory monitor. Basal this information I think he is a good candidate for permanent pacemaker due to symptomatic non reversible AV node dysfunction. Her while he does take a beta-kieran, I do believe this is beneficial therapy for the patient. Also, given his degree of conduction disease which likely involves an element of infra Hisian disease, there is no distinct benefit to stopping his beta-kieran therapy to accommodate any improved conduction. I did discuss the risks benefits alternatives of a permanent pacemaker with the patient and his family today. We also described the option of not getting a pacemaker in the associated consequences. He is agreeable and we will proceed immediately. (2) Non-sustained ventricular tachycardia: Patient does have frequent ventricular ectopy. He also has rare episodes of ventricular arrhythmia with very short runs of nonsustained VT lasting a few beats. These did not produce symptoms. While he does have an element of nonobstructive coronary disease, he does not have associated angina. He has preserved LV systolic function. I do not think this represents an indication for an ICD. I do not believe ventricular tachycardia the likely mechanism of his near-syncope. Continued therapy with a beta-kieran is indicated. I do not believe he has an indication for more aggressive therapy in the absence of reduced LV systolic function or symptoms. 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 Recently he has been complaining of near syncopal episodes. The patient states that he has had some episodes remotely where he felt as if his vision was declining and he became notably dizzy. These episodes were remote and infrequent. However, over the past few weeks he has had 3 distinct episodes of near syncope. All these follow the same pattern. He is generally performing some mild activity warmed 1 case driving when he begins to feel somewhat lightheaded and notices his vision changing. Often times he can steady himself during this episode. He has not lost postural tone or complete consciousness. The episodes themselves last approximately 30 seconds by report. Afterwards he feels quite well. He did not describe any symptoms leading up to these events. He is not generally aware of any palpitations associated with these events. He does have some irregularity in his pulse if he feels that. This is longstanding in nature. He is an otherwise active individual who was accustomed to mild activity. He does have some mild dyspnea with extremes of exertion, but this does not limit him on a daily basis. He does not report exertional chest pain or chest pain at rest. He has not have chest discomfort when he is dyspneic. He denies orthopnea or paroxysmal nocturnal dyspnea although for half of the evening he generally sleeps in a recliner due to some orthopedic disease. He was seen in an outpatient basis for the aforementioned symptoms. Patient did wear an ambulatory monitor for 2 weeks and also underwent echocardiography recently. Allergies Allergy/AdvReac Type Severity Reaction Status Date / Time pravastatin Allergy Severe MUSCLE, Verified 11/04/18 21:26 BODY ACHES Home Medications Home Medications Medication Instructions Recorded Confirmed Type amlodipine 2.5 mg PO DAILY 11/04/18 11/04/18 History amoxicillin 2,000 mg PO DIRECTED PRN 11/04/18 11/04/18 History aspirin [Aspir-81] 81 mg PO DAILY 11/04/18 11/04/18 History atorvastatin 10 mg PO HS 11/04/18 11/04/18 History carvedilol 3.125 mg PO QPM 11/04/18 11/04/18 History carvedilol 6.25 mg PO QAM 11/04/18 11/04/18 History cyanocobalamin (vitamin B-12) 1,000 mcg PO DAILY 11/04/18 11/04/18 History [Vitamin B-12] doxazosin 8 mg PO HS 11/04/18 11/04/18 History finasteride 5 mg PO QPM 11/04/18 11/04/18 History fluticasone propionate [Flonase 1 spray INTRANASAL DAILY 11/04/18 11/04/18 History Allergy Relief] hydrochlorothiazide 12.5 mg PO DAILY 11/04/18 11/04/18 History losartan 100 mg PO DAILY 11/04/18 11/04/18 History metformin 500 mg PO BIDM 11/04/18 11/04/18 History montelukast [Singulair] 10 mg PO PM 11/04/18 11/04/18 History umeclidinium-vilanterol [Anoro 1 inh INHALATION DAILY 11/04/18 11/04/18 History Ellipta] Patient History Medical History HTN (hypertension) (Chronic) COPD, moderate (Chronic) RBBB (Chronic) BPH (benign prostatic hyperplasia) (Chronic) Dyslipidemia (Chronic) Pulmonary fibrosis (Chronic) CAD (coronary artery disease) (Chronic) "cath 10/2011 - 60% mid LAD stenosis" Valvular cardiomyopathy (Resolved) Surgical History H/O inguinal hernia repair (Chronic) History of total left hip replacement (Chronic) "and revision" 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" Social History Preferred Language: Nicaraguan Communication Ability: Effective Beliefs That Will Affect Care: None Current Living Situation: Spouse Other Information That Helps Us Care for You: No Feels Safe at Home: Yes Safety Concerns: Feels Safe At This Time Smoking Status: Former smoker Do You Dip or Chew Tobacco: No Hx Alcohol Use: No Hx Substance Use: No Review of Systems Review of Systems: All systems reviewed & are unremarkable except as noted in HPI & below No recent constitutional symptoms such as fevers or chills. Patient did report some symptoms of dyspnea leading up to his mitral valve repair in 2011, but no marked improvement subsequent surgery. Physical Exam Physical Exam: The patient is alert and oriented. Mood and affect appeared normal. He answered all questions appropriately. HEENT: Pupils are equal and reactive to light and accommodation. Extraocular movements are intact. The sclerae are anicteric. Neuro: Cranial nerves intact Neck: Patient's neck is supple. He has palpable carotid pulses bilaterally without bruits on auscultation. There is no evidence of jugular venous distention. The thyroid is not enlarged. Lungs: Clear to auscultation bilaterally. He has good air movement without use of accessory muscles. No rales wheezes or rhonchi. Cardiac: Heart demonstrates a regular rate and rhythm with occasional ectopy. Normal S1 and S2. No murmurs on examination. Pulses: The patient has palpable radial pulses bilaterally that are equal in intensity Extremities: There was no evidence of hypoperfusion. There is no cyanosis or clubbing. There is no edema. Skin: I did not appreciate any rashes on examination today. Results & Data Vital Signs (Past 12 Hours) Vital Signs Temp Pulse Pulse Resp BP Pulse Ox 11/05/18 07:26 36.6 C 62 18 136/77 92 11/05/18 03:38 36.7 C 64 17 109/63 94 11/05/18 00:00 70 Laboratory Results Abnormal Lab Results 11/04/18 11/04/18 11/04/18 20:25 20:25 20:25 WBC 6.41 RBC 4.85 Hgb 16.0 Hct 44.5 MCV 91.8 MCH 33.0 MCHC 36.0 RDW Std Deviation 42.7 RDW Coeff of Tyrell 12.8 Plt Count 156 MPV 10.3 Immature Gran % (Auto) 0.2 Neut % (Auto) 59.8 Lymph % (Auto) 26.1 [place] % (Auto) 8.3 Eos % (Auto) 5.1 Baso % (Auto) 0.5 Immature Gran # (Auto) 0.01 Neut # (Auto) 3.84 Lymph # (Auto) 1.67 [place] # (Auto) 0.53 Eos # (Auto) 0.33 Baso # (Auto) 0.03 PT 10.2 INR 1.0 APTT 26.8 PTT Ratio 1.0 Sodium 137 Potassium 3.5 Chloride 102 Carbon Dioxide 28 Anion Gap 7.0 BUN 19 H Creatinine 1.17 Est Cr Clr Drug Dosing 62.7 Est GFR ( Amer) 68.8 Est GFR (Non-Af Amer) 59.4 BUN/Creatinine Ratio 16.6 Glucose 134 H POC Glucose Estimat Average Glucose Hemoglobin A1c Calcium 9.5 Magnesium 2.1 Total Bilirubin 0.3 AST 22 ALT 25 Alkaline Phosphatase 88 Troponin I < 0.015 Total Protein 8.1 Albumin 3.7 Globulin 4.4 H Albumin/Globulin Ratio 0.8 L TSH 3.390 Specimen Hemolysis Lyme Disease IgG Ab Lyme Disease IgM Ab 11/04/18 11/04/18 11/05/18 20:25 23:47 05:10 WBC 5.92 RBC 4.62 L Hgb 14.6 Hct 42.5 MCV 92.0 MCH 31.6 MCHC 34.4 RDW Std Deviation 42.7 RDW Coeff of Tyrell 12.7 Plt Count 143 MPV 9.9 Immature Gran % (Auto) 0.0 Neut % (Auto) 60.5 Lymph % (Auto) 23.1 [place] % (Auto) 11.0 Eos % (Auto) 4.9 Baso % (Auto) 0.5 Immature Gran # (Auto) 0.00 Neut # (Auto) 3.58 Lymph # (Auto) 1.37 [place] # (Auto) 0.65 H Eos # (Auto) 0.29 Baso # (Auto) 0.03 PT INR APTT PTT Ratio Sodium Potassium Chloride Carbon Dioxide Anion Gap BUN Creatinine Est Cr Clr Drug Dosing Est GFR ( Amer) Est GFR (Non-Af Amer) BUN/Creatinine Ratio Glucose POC Glucose Estimat Average Glucose Hemoglobin A1c Calcium Magnesium Total Bilirubin AST ALT Alkaline Phosphatase Troponin I < 0.015 Total Protein Albumin Globulin Albumin/Globulin Ratio TSH Specimen Hemolysis Lyme Disease IgG Ab Negative Lyme Disease IgM Ab Negative 11/05/18 11/05/18 11/05/18 05:10 05:10 07:39 WBC RBC Hgb Hct MCV MCH MCHC RDW Std Deviation RDW Coeff of Tyrell Plt Count MPV Immature Gran % (Auto) Neut % (Auto) Lymph % (Auto) [place] % (Auto) Eos % (Auto) Baso % (Auto) Immature Gran # (Auto) Neut # (Auto) Lymph # (Auto) [place] # (Auto) Eos # (Auto) Baso # (Auto) PT INR APTT PTT Ratio Sodium 138 Potassium 3.4 L Chloride 106 Carbon Dioxide 28 Anion Gap 4.0 BUN 20 H Creatinine 1.05 Est Cr Clr Drug Dosing 63.6 Est GFR ( Amer) 78.4 Est GFR (Non-Af Amer) 67.7 BUN/Creatinine Ratio 19.5 Glucose 114 H POC Glucose 124 H Estimat Average Glucose 143 Hemoglobin A1c 6.6 H Calcium 8.6 Magnesium 2.0 Total Bilirubin AST ALT Alkaline Phosphatase Troponin I < 0.015 Total Protein Albumin Globulin Albumin/Globulin Ratio TSH Specimen Hemolysis Lyme Disease IgG Ab Lyme Disease IgM Ab Diagnostic Findings Reviewed the source images of the patient is ambulatory monitor. This demonstrated heart block with associated asystole lasting up to 7 seconds in duration Patient did undergo an echocardiogram on 10/15/2018 revealing preserved LV systo lic function. No significant valvular disease. 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
--- NOTE | 2018-11-05 11:39 | Pre Anesthesia Assessment ---
Date of Service November 05, 2018 Pre Sedation Assessment Vital Signs Temp Pulse Pulse Resp BP BP BP 11/05/18 07:26 36.6 C 62 18 136/77 11/05/18 03:38 36.7 C 64 17 109/63 11/05/18 00:00 70 11/04/18 23:28 36.6 C 59 L 18 168/86 H 11/04/18 23:01 70 19 145/91 H 11/04/18 22:31 64 24 136/78 11/04/18 22:01 63 19 145/84 H 11/04/18 21:31 65 20 138/79 11/04/18 21:01 68 22 151/89 H 11/04/18 20:34 73 19 182/99 H 11/04/18 20:24 36.7 C 68 17 185/108 H Pulse Ox 11/05/18 07:26 92 11/05/18 03:38 94 11/05/18 00:00 11/04/18 23:28 93 11/04/18 23:01 94 11/04/18 22:31 93 11/04/18 22:01 94 11/04/18 21:31 94 11/04/18 21:01 96 11/04/18 20:34 96 11/04/18 20:24 96 Cardiovascular + regular rate Respiratory + respiratory effort normal Pre-Sedation Airway Assessment Smoking Status: Former smoker Hx Sleep Apnea: No Hx Difficult Intubation: No Short, Thick Neck: No Thyromental Distance: > or= 3.5 Finger Breadths Oral Cavity: + WNL Mallampati Class: III ASA: ASA3 Procedure Planning Contraindications for Sedation: none Current Medications Reviewed: Yes Notes The planned sedation has been discussed with the patient. Informed Consent was obtained. I have identified the patient, determined the appropriateness of sedation and have assessed the patient immediately prior to the procedure. All medicine(s) and interventions are by my order.
[2018-11-05] MEDS ORDERED: ACETAMINOPHEN 325 MG TAB PO PRN (12:37)
--- NOTE | 2018-11-05 12:37 | Procedure Note ---
Procedure Note Date of Service November 05, 2018 Note Procedure performed: Implantation of dual-chamber pacemaker Staff bottom loader: Lan Hernandez MD Indication: The patient is a 78-year-old gentleman with a history of presyncope and documented sinus arrest correlating with symptoms on outpatient monitoring. Based on symptomatic nonreversible sinus node dysfunction he still be good candidate for a permanent pacemaker. A dual-chamber device was selected as the patient is currently in sinus rhythm and wished to maintain AV synchrony. Procedure in detail: The patient was informed of the risks benefits and alternatives to the intended procedure and she wished to proceed. He was taken to the electrophysiology suite in a fasting state. A preoperative antibiotic had been administered. The patient was monitored electrocardiographically throughout today's procedure and conscious sedation was administered per protocol. The left upper pectoral area is prepped and draped in usual sterile fashion. This area was anesthetized using subcutaneous administration of a xylocaine solution. An incision was made at this site and carried down to the prepectoralis fascia using sharp dissection. Electrocautery was also employed for dissection as well as for hemostasis. A device pocket was fashioned tissues above the pectoralis muscle. Subsequent to this maneuver the left axillary vein was accessed using modified Seldinger technique. Sheaths were placed over guidewires at this site and used to facilitate passage of the pacing leads to the respective chambers under fluoroscopic guidance. This included right atrial and right ventricular leads. Adequate sensing and threshold parameters were obtained prior to Active fixation of the leads to the endocardial surface. The proximal portion leads were then sutured the prepectoral fascia using nonabsorbable suture. The device pocket was irrigated with antibiotic solution. The leads were then attached to the device. The device and leads were then placed in the pocket and pocket was closed in 3 layers of absorbable suture. Steri-Strips and sterile dressing were applied. The device was tested noninvasively prior to conclusion the procedure. The patient tolerated procedure well there no immediate complications. Equipment used: New pulse generator: Data Conversion Developer [employer]. Model number: [id number] serial number [id number] Right atrial lead: Data Conversion Developer Medtronic. Model number: [id number] serial number [id number] Right ventricular lead: Data Conversion Developer [employer]onic. Model number: [id number] serial number [id number] Measured data: Right atrial lead: P waves measured 2.1 mV. Pacing peripheral is 1 V at 0.4 ms with a pacing impedance of 456 ohms Right ventricular lead: R waves measured 5.4 mV. Pacing threshold 0.5 V at 0.4 ms with a pacing impedance of 836 ohms Impression: Successful implantation of dual-chamber permanent pacemaker Coding
[2018-11-05] MEDS ORDERED: OXYCODONE HCL IR 5 MG TAB (IMMEDIATE RELEASE) PO PRN (12:39)
--- NOTE | 2018-11-05 15:09 | Hospitalist Progress Note ---
Date of Service November 05, 2018 Assessment & Plan (1) Pacemaker: This is a 78-year-old male with presyncope on Zio monitor, advised to come to the hospital because Zio monitor showed nonsustained ventricular tachycardia and high grade heart block. S/p pacemaker placement on this admission -implantation of dual-chamber permanent pacemaker on 11/05/18 Indications for pacemaker were diagnoses of (1) Near syncope (2) Third degree heart block (3) Non-sustained ventricular tachycardia -patient will be monitored on telemetry, will consider by tomorrow and based on cardiology evaluation when to resume home dose carvedilol which was held past medical history of myxomatous mitral valve disease -underwent complex surgical mitral valve repair in 2011. -His preoperative cardiac catheterization performed in 2011 revealed a moderate mid LAD of obstruction in the range of 60 to 70% which is been treated medically. His most recent ischemic work-up took place in 2017 with nonischemic nuclear stress test noted at that time. 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 Diabetes Mellitus Type 2 without complication and without terminal operations manager current use of insulin -HbA1c 6.6 -Hold home dose metformin -continue insulin sliding scale Benign prostatic hypertrophy -continue doxazosin, Proscar. Vitamin B12 deficiency -on supplement. Chronic rhinitis -on Singulair and Flonase. Deep venous thrombosis prophylaxis, sequential compression devices Disposition: Close monitoring in the tele floor. Level 1 full code. Subjective Patient returns from pacemaker placement. Dressing over the left chest at site of pacemaker. patient denies acute pain. no shortness of breath. no dizziness. no lightheadedness. no vomiting. no swelling or pain of lower extremities. no deficits of the motor function Physical Exam Constitutional: WD/WN, vitals as above Eyes: PERRL, conjunctivae normal, anicteric sclerae EOM intact bilaterally ENMT: external ear and nose normal, oropharynx normal Neck: trachea midline, no thyromegaly normal visual inspection Respiratory: normal respiratory effort, lungs clear to auscultation Cardiovascular: Rate/Rhythm: regular rate and regular rhythm Chest (Breasts): Chest: + pacemaker Gastrointestinal (Abdomen): normal bowel sounds, soft, nontender, no hepatosplenomegaly Musculoskeletal: Head/Neck/Chest: normocephalic and head atraumatic Neurologic: PERRL, EOMI, accommodation nl, no face palsy, no dysarthria CN's II-XI intact bilaterally Psychiatric: A+Ox3, euthymic affect Results & Data Vital Signs (Past 12 Hours) Vital Signs Temp Pulse Resp BP BP Pulse Ox 11/05/18 14:45 69 120/55 L 11/05/18 14:00 64 20 121/75 95 11/05/18 13:47 36.8 C 68 20 126/74 93 11/05/18 13:35 37.0 C 69 18 120/74 93 11/05/18 13:22 71 20 123/77 93 11/05/18 13:10 66 20 125/79 94 11/05/18 12:50 36.7 C 59 L 20 137/79 92 11/05/18 07:26 36.6 C 62 18 136/77 92 11/05/18 03:38 36.7 C 64 17 109/63 94
[2018-11-05] MEDS ORDERED: CEFAZOLIN 1000MG 1,000 MG/7.5 ML SYR IV SCH (20:00)
[2018-11-05] MEDS: CEFAZOLIN 2000MG 2,000 MG/15 ML SYR IV SCH (20:06)
[2018-11-05] MEDS ORDERED: ATORVASTATIN 10 MG TAB PO SCH (21:00)
[2018-11-05] MEDS ORDERED: DOXAZosin MESYLATE 4 MG TAB PO SCH (21:00)
[2018-11-05] MEDS ORDERED: MONTELUKAST SODIUM 10 MG TABLET PO SCH (21:00)
[2018-11-05] MEDS ORDERED: FINASTERIDE 5 MG TAB PO SCH (21:00)
[2018-11-06] MEDS: CEFAZOLIN 2000MG 2,000 MG/15 ML SYR IV SCH (04:14)
--- NOTE | 2018-11-06 06:43 | XRay Report ---
XR chest 2V routine HISTORY: 78 years-old Male EXACT TIME ORDERED Evaluate for pneumothorax and l status post placement of a left subclavian pacer COMPARISON: Chest radiograph 11/04/2018 TECHNIQUE: AP and lateral views of the chest FINDINGS: Cardiac silhouette is enlarged, unchanged. Prosthetic mitral valve redemonstrated. Wires about the me diastinum redemonstrated. No pneumothorax, pleural effusion or overt pulmonary edema. Bilateral retic ular nodular opacities with masslike consolidation of the upper lung zones and superior elevation of the debra redemonstrated suggestive of progressive massive fibrosis. Calcified mediastinal and hilar l ymph nodes. Degenerative changes of the shoulders and spine. Status post placement of a left subclavi an pacer with leads overlying the expected locations of the right atrium and right ventricle. IMPRESSION: 1. Status post placement of a left subclavian pacer. No postprocedural pneumothorax identified. 2. Chronic findings as above. The above report was generated using voice recognition software. It may contain grammatical, syntax o r spelling errors. Electronically signed by: Tim Green M.D. 11/06/2018 6:41 AM
[2018-11-06 06:44] LABS: Basophils # (auto) 0.01 K/uL (0-0.2); Basophils % (auto) 0.2 %; Eosinophils # (auto) 0.26 K/uL (0-0.5); Hemoglobin 15.6 g/dL (14.0-18.0); Immature Granulocytes # (auto) 0.01 K/uL (0.00-0.02); Immature Granulocytes % (auto) 0.2 %; Lymphocytes # (auto) 1.44 K/uL (1.2-3.4); Lymphocytes % (auto) 22.4 %; Mean Corpuscular Hgb Conc 34.7 g/dL (32-36); Mean Corpuscular Volume 92.4 fL (80-100); Mean Platelet Volume 9.9 fL (7.4-10.4); Monocytes # (auto) 0.68 K/uL (0.11-0.59); Monocytes % (auto) 10.6 %; Neutrophils # (auto) 4.04 K/uL (1.4-6.5); Neutrophils % (auto) 62.6 %; Platelet Count 139 K/uL (130-400); RDW Coefficient of Variation 12.9 % (11.5-14.5); RDW Standard Deviation 43.9 fL (36.4-46.3); Red Blood Count 4.87 M/uL (4.7-6.1); White Blood Count 6.44 K/uL (4.8-10.8)
[2018-11-06 07:20] LABS: BUN Creatinine Ratio 16.5 (10-20); Creatinine Clr Calc Pharmacy 53.9 ml/min; Est GFR (African American) 64.1; Est GFR (Non-African American) 55.3; Potassium 3.8 mmol/L (3.5-5.1)
[2018-11-06] MEDS: INSULIN ASPART 100 UNITS/ML 3 ML PEN SC SCH ×2 (08:05→11:43)
[2018-11-06] MEDS: ANORO ELLIPTA~ORDER AWAITING ACTION SCH (08:05)
[2018-11-06] MEDS: FLUTICASONE PROPIONATE NA SPR 16 GM BTL SCH (08:06)
[2018-11-06] MEDS: CYANOCOBALAMIN 500 MCG TABLET (VITAMIN B-12) PO SCH (08:06)
[2018-11-06] MEDS: AMLODIPINE BESYLATE 5 MG TAB PO SCH (08:06)
[2018-11-06] MEDS: ASPIRIN 81 MG ECTAB PO SCH (08:06)
[2018-11-06] MEDS: hydroCHLOROthiazide 25 MG TAB PO SCH (08:06)
[2018-11-06] MEDS: LOSARTAN POTASSIUM 50 MG TAB PO SCH (08:06)
--- NOTE | 2018-11-06 08:31 | Cardiology Progress Note ---
Date of Service November 06, 2018 Assessment & Plan (1) Near syncope: (2) Third degree heart block: (3) Non-sustained ventricular tachycardia: (4) Pulmonary fibrosis: (5) Hx of mitral valve repair: Patient presents having had multiple episodes of near syncope/syncope. Symptoms correlated with 7.4-second pause in the setting of high-grade AV block/ventricular asystole. He therefore was seen by electrophysiology yesterday and underwent implantation of dual-chamber Medtronic pacemaker. Chest x-ray performed today reveals appropriately positioned and no pneumothorax. Findings of chronic coronary fibrosis noted stable compared to prior chest x-ray. The patient's device was interrogated by Dr Hernandze of EP with stable findings noted. Plan to start metoprolol succinate 50 mg daily in substitution for his previous carvedilol. Metoprolol succinate being utilized as it is a preferred agent in terms of PVC suppression. Given his past carvedilol dose, I think that Toprol succinct 50 mg is an appropriate dose for him. I made arrangements for the patient to be seen at [facility] device clinic next 11/13/2018, our office is to call him with a time of the appointment. He is to have a follow-up visit with Mr. Latham, Dr. Morrison, or the undersigned within to 3 weeks. Due to recent concerns of syncope while driving, he is driving had been restricted. He needs to continue to abstain from driving pending reassessment and his cardiology follow-up to ensure that his syncopal episodes have resolved post pacemaker. Subjective Chief complaint: Follow-up syncope Subjective: Patient tolerated implantation of dual-chamber Medtronic pacemaker in the left infraclavicular position well yesterday. He rested well overnight. He has mild pain at the procedure site, but he states that it is reasonably well controlled. He denies any lightheadedness or dizziness. Telemetry reveals sinus rhythm with occasional atrial pacing, and occasional PVCs. A single 3 beat patrick of nonsustained ventricular tachycardia noted overnight. Review of Systems Review of Systems: All systems reviewed & are unremarkable except as noted in HPI & below Physical Exam Physical Exam: General: no acute distress and stated age Eyes: conjunctiva are pink and non-injected, sclera clear Neck: normal jugular venous pulse, no hepatojugular reflux Chest: normal shape and normal respiratory effort Lungs: clear to auscultation and percussion Cardiac Exam: - regular heart sounds and regular rhythm with occasional ectopy, no murmurs, rubs, or gallops, no jugular venous distention -Left infraclavicular pocket noted with bandage in place. Abdomen: abdomen soft, non-tender, no abnormal masses and no hepatosplenomegaly Extremities: no edema and no cyanosis Neuro:awake, coversant, follows commands, no focal motor deficits Psych: appropriate affect and insight. Results & Data Vital Signs (Past 12 Hours) Vital Signs Temp Pulse Resp BP BP Pulse Ox 11/06/18 07:31 36.9 C 61 16 148/68 H 94 11/06/18 04:00 36.3 C L 59 L 20 130/80 96 11/05/18 23:28 36.7 C 63 19 130/79 94
[2018-11-06] MEDS ORDERED: METOPROLOL SUCC 50MG EXT REL TAB PO SCH (09:00)
--- NOTE | 2018-11-06 10:06 | Hospitalist Progress Note ---
Date of Service November 06, 2018 Assessment & Plan (1) Pacemaker: This is a 78-year-old male with presyncope on Zio monitor, advised to come to the hospital because Zio monitor showed nonsustained ventricular tachycardia and high grade heart block. S/p pacemaker placement on this admission -status post implantation of Medtronic dual-chamber pacemaker by Dr. Hernandez on 11/05/18 Indications for pacemaker were diagnoses of (1) Near syncope (2) Third degree heart block (3) Non-sustained ventricular tachycardia -Patient is to stop carvedilol home medication and metoprolol 50 mg succinate was started as per cardiology service patient has metoprolol succinate 50 mg daily prescription sent electronically to [facility] [address] [place] [address] [place] [address] Patient may take acetaminophen 325 mg every 6 hours as needed for 5 days for pain control from the pacemaker placement Patient has scheduled discharge appointments 11/13/2018 10:15 AM Provider Pacer Clinic [facility] Department Cardiology, [facility] 11/13/2018 1:00 PM Provider Danette Callejas MD Department Internal Medicine [facility] 11/18/2018 3:00 PM Provider Jorden Latham PA-C Department Cardiology, [facility] -Patient is advised to avoid driving until follow up with cardiology clinic to ensure that his syncopal episodes have resolved post pacemaker. past medical history of myxomatous mitral valve disease -underwent complex surgical mitral valve repair in 2011. -His preoperative cardiac catheterization performed in 2011 revealed a moderate mid LAD of obstruction in the range of 60 to 70% which is been treated medicall y. His most recent ischemic work-up took place in 2017 with nonischemic nuclear stress test noted at that time. 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 Diabetes Mellitus Type 2 without complication and without terminal operations supervisor current use of insulin -HbA1c 6.6 -Hold home dose metformin -continue insulin sliding scale Benign prostatic hypertrophy -continue doxazosin, Proscar. Vitamin B12 deficiency -on supplement. Chronic rhinitis -on Singulair and Flonase. 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 Hernandez on 11/05/18 Patient is to stop carvedilol home medication Instead patient has metoprolol succinate 50 mg daily prescription sent electronically to [facility] [address] [place] [address] [place] [address] Patient may take acetaminophen 325 mg every 6 hours as needed for 5 days for pain control from the pacemaker placement Patient has scheduled discharge appointments 11/13/2018 10:15 AM Provider Pacer Clinic [facility] Department Cardiology, [facility] 11/13/2018 1:00 PM Provider Danette Callejas MD Department Internal Medicine [facility] 11/18/2018 3:00 PM Provider Jorden Latham PA-C Department Cardiology, [facility] Patient is advised to avoid driving until follow up with cardiology clinic to ensure that his syncopal episodes have resolved post pacemaker. Subjective Patient does not have acute pain from pacemaker site. denies chest pain or shortness of breath. reports that he is ambulatory and no lightheadedness or dizziness. no vomiting. cardiology service recommend hospital discharge and discharge plans were discussed Physical Exam Constitutional: WD/WN, vitals as above Eyes: PERRL, conjunctivae normal, anicteric sclerae EOM intact bilaterally ENMT: external ear and nose normal, oropharynx normal Neck: trachea midline, no thyromegaly normal visual inspection Respiratory: normal respiratory effort, lungs clear to auscultation Cardiovascular: Rate/Rhythm: regular rate and regular rhythm Chest (Breasts): Chest: + pacemaker Gastrointestinal (Abdomen): normal bowel sounds, soft, nontender, no hepatosplenomegaly Musculoskeletal: Head/Neck/Chest: normocephalic and head atraumatic Neurologic: PERRL, EOMI, accommodation nl, no face palsy, no dysarthria CN's II-XI intact bilaterally Psychiatric: A+Ox3, euthymic affect Results & Data Vital Signs (Past 12 Hours) Vital Signs Temp Pulse Resp BP BP Pulse Ox 11/06/18 07:31 36.9 C 61 16 148/68 H 94 11/06/18 04:00 36.3 C L 59 L 20 130/80 96 11/05/18 23:28 36.7 C 63 19 130/79 94
--- NOTE | 2018-11-06 10:17 | Discharge Summary ---
Date of Service November 06, 2018 Admission HPI Per Admitting Provider DATE OF ADMISSION: 11/04/2018 CHIEF COMPLAINT: Presyncope. HISTORY OF PRESENT ILLNESS: This is a 78-year-old male with past medical history significant for diabetes, hyperlipidemia, chronic obstructive pulmonary disease, chronic rhinitis, coal workers' pneumoconiosis, venous insufficiency, hypertension, coronary artery disease, B12 deficiency, benign prostatic hypertrophy, status post mitral valve repair who was having presyncope kind of episodes and Cardiology put him on Zio monitor for 2 weeks, mailed Zio monitor last and he got a call from [facility] today stating that he needs to go to the Emergency Room as he was having occasional high grade heart blocks.. The patient states last episode of his presyncope was last Friday when he was driving, he generally blacks out for a few seconds but he does not totally pass out, never fell down and when he was called today he was told not to drive. The patient currently is resting comfortably and hemodynamically stable. Denies any chest pain. No shortness of breath. He has a cough from his postnasal drip sometimes brings mucus. Denies any fever or chills. No headache. No dizziness. No blurred vision. He has some pain in the close to the left ear on and off, shooting pain. Currently, no pain. Appetite is good. No difficulty swallowing. No nausea. No abdominal pain. Usually normal bowel and bladder movements. He gets a colonoscopy every 3 years because he has precancerous polyps. Last colonoscopy was 8 months ago. For the last 1 month, he says he is having some irregular bowel movements. No blood in the stools. No black stools. No hematuria. No swelling in the legs. No rash. Ambulates without any help. Lives with his . ALLERGIES: PRAVASTATIN. PAST MEDICAL HISTORY: As mentioned above. PAST SURGICAL HISTORY: Colonoscopy, needle punch biopsy of the prostate, mitral valve valvuloplasty with prosthetic ring, inguinal hernia repair, left hip surgery, left total hip replacement. MEDICATIONS: The patient is on amlodipine 2.5 mg p.o. daily, Flonase 2 sprays into each nostril daily, doxazosin 8 mg 1 tablet at bedtime, Cozaar 100 mg p.o. daily, Proscar 5 mg p.o. daily, metformin 500 mg p.o. b.i.d., atorvastatin 10 mg p.o. daily, Singulair 10 mg p.o. daily, hydrochlorothiazide 12.5 mg p.o. daily, Coreg 6.25 mg in the morning and 3.125 mg in the evening, Anoro Ellipta 62.5/25 mcg 1 puff inhalation daily, B12 1000 mcg p.o. daily, aspirin 81 mg p.o. daily and amoxicillin 2000 mg p.o. 1 hour prior to any procedures. FAMILY HISTORY: Significant for brother had leukemia. Mother had myocardial infarction and hypertension. Father has hypertension. Cousin has prostrate cancer. SOCIAL HISTORY: and lives with his . Former smoker, quit in 1990. Smoked one and a half pack a day for 30 years. Alcohol occasionally. No drug use. REVIEW OF SYMPTOMS: As per HPI. Rest of review of symptoms negative. Admission Exam Per Admitting Provider PHYSICAL EXAMINATION: GENERAL: The patient is of moderate build, not in acute distress. VITAL SIGNS: Temperature 36.7, pulse 64, respiratory rate 24, blood pressure 136/78, oxygen 93% on room air. HEENT: No pallor. No icterus. Pupils are equal, round and reactive to light. left ear examined, no erythema or drainage seen. NECK: No JVD. No neck masses. No carotid bruits. CARDIOVASCULAR: S1, S2 heard. Regular rate and rhythm. No murmur. No gallop. RESPIRATORY SYSTEM: Normal AP diameter. No accessory muscle use. No wheezing. No crackles. ABDOMEN: Soft. Bowel sounds present. Nontender. No distention. CENTRAL NERVOUS SYSTEM: Cranial nerves II through XII grossly intact. Nonfocal. EXTREMITIES: No edema. No erythema. 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, Diabetes Mellitus Type 2 without complication and without half-way current use of insulin Discharge Exam Constitutional WD/WN, vitals as above Eyes PERRL, conjunctivae normal, anicteric sclerae EOM intact bilaterally ENMT external ear and nose normal, oropharynx normal Neck trachea midline, no thyromegaly normal visual inspection Respiratory normal respiratory effort, lungs clear to auscultation Cardiovascular Rate/Rhythm: regular rate and regular rhythm Chest (Breasts) Chest: + pacemaker Gastrointestinal (Abdomen) normal bowel sounds, soft, nontender, no hepatosplenomegaly Musculoskeletal Head/Neck/Chest: normocephalic and head atraumatic Neurologic PERRL, EOMI, accommodation nl, no face palsy, no dysarthria CN's II-XI intact bilaterally Psychiatric A+Ox3, euthymic affect Discharge Data Allergies Allergy/AdvReac Type Severity Reaction Status Date / Time pravastatin Allergy Severe MUSCLE, Verified 11/04/18 21:26 BODY ACHES Consultations 11/04/18 22:54 ED Decision to Admit Stat 11/05/18 08:00 Consult Cardiology Routine 11/05/18 08:30 Consult Cardiac Electrophysiology Routine Procedures Performed Operation Date: 11/05/18 11:00 Actual Procedures p Pacer with A/V Leads (Dual) - Andres Hernandez MD Operation Date: 11/05/18 11:30 <No data on this case meets the specified criteria> Ordered Studies 11/05/18 11:30 EP Lab Images for PACS ONCE Hospital Course (1) Pacemaker: This is a 78-year-old male with presyncope on Zio monitor, advised to come to the hospital because Zio monitor showed nonsustained ventricular tachycardia and high grade heart block. S/p pacemaker placement on this admission -status post implantation of Medtronic dual-chamber pacemaker by Dr. Hernandez on 11/05/18 Indications for pacemaker were diagnoses of (1) Near syncope (2) Third degree heart block (3) Non-sustained ventricular tachycardia -Patient is to stop carvedilol home medication and metoprolol 50 mg succinate was started as per cardiology service patient has metoprolol succinate 50 mg daily prescription sent electronically to [facility] [address] [place] [phone] Patient may take acetaminophen 325 mg every 6 hours as needed for 5 days for pain control from the pacemaker placement Patient has scheduled discharge appointments 11/13/2018 10:15 AM Provider Pacer Clinic [facility] Department Cardiology, [facility] 11/13/2018 1:00 PM Provider Danette Callejas MD Department Internal Medicine [facility] 11/18/2018 3:00 PM Provider Jorden Latham PA-C Department Cardiology, [facility] -Patient is advised to avoid driving until follow up with cardiology clinic to ensure that his syncopal episodes have resolved post pacemaker. past medical history of myxomatous mitral valve disease -underwent complex surgical mitral valve repair in 2011. -His preoperative cardiac catheterization performed in 2011 revealed a moderate mid LAD of obstruction in the range of 60 to 70% which is been treated medically. His most recent ischemic work-up took place in 2017 with nonischemic nuclear stress test noted at that time. 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 Diabetes Mellitus Type 2 without complication and without supervisor intermediates current use of insulin -HbA1c 6.6 -Hold home dose metformin -continue insulin sliding scale Benign prostatic hypertrophy -continue doxazosin, Proscar. Vitamin B12 deficiency -on supplement. Chronic rhinitis -on Singulair and Flonase. 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 Hernandez on 11/05/18 Patient is to stop carvedilol home medication Instead patient has metoprolol succinate 50 mg daily prescription sent electronically to [facility] [address] [place] [phone] Patient may take acetaminophen 325 mg every 6 hours as needed for 5 days for pain control from the pacemaker placement Patient has scheduled discharge appointments 11/13/2018 10:15 AM Provider Pacer Clinic [facility] Department Cardiology, [facility] 11/13/2018 1:00 PM Provider Danette Callejas MD Department Internal Medicine [facility] 11/18/2018 3:00 PM Provider Jorden Latham PA-C Department Cardiology, [facility] Patient is advised to avoid driving until follow up with cardiology clinic to ensure that his syncopal episodes have resolved post pacemaker. 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, Diabetes Mellitus Type 2 without complication and without supervisor intermediates current use of insulin Condition: Good Discharge Goals: Improve disease control Activity: Per 'Additional Instructions' section Driving/Machine Use Comment: avoid driving until follow up with cardiology clinic Non-emergency contact: Primary Care Provider and Card Stripper Call non-emergency contact if: you have any medication questions Follow-up/Referrals: Kenji Morrison MD [Primary Care Provider] - Diet: Regular Addtl Provider Instructions: Discharge instructions status post implantation of Medtronic dual-chamber pacemaker by Dr. Hernandez on 11/05/18 Patient is to stop carvedilol home medication Instead patient has metoprolol succinate 50 mg daily prescription sent electronically to [facility] [address] [place] [phone] Patient may take acetaminophen 325 mg every 6 hours as needed for 5 days for pain control from the pacemaker placement Patient has scheduled discharge appointments 11/13/2018 10:15 AM Provider Pacer Clinic [facility] Department Cardiology, [facility] 11/13/2018 1:00 PM Provider Danette Callejas MD Department Internal Medicine [facility] 11/18/2018 3:00 PM Provider Jorden Latham PA-C Department Cardiology, [facility] Patient is advised to avoid driving until follow up with cardiology clinic to ensure that his syncopal episodes have resolved post pacemaker. Prescriptions: New metoprolol succinate 50 mg Tablet Extended Release 24 Hr 50 mg PO QAM 30 Days Qty: 30 RF: 0 acetaminophen [Mapap (acetaminophen)] 325 mg Tablet 325 mg PO Q6H PRN (Reason: pain) 5 Days Qty: 20 RF: 0 Continued amoxicillin 500 mg Capsule 2,000 mg PO DIRECTED PRN (Reason: PRIOR TO DENTAL VISITS) RF: 0 metformin 500 mg Tablet 500 mg PO BIDM RF: 0 atorvastatin 10 mg Tablet 10 mg PO HS RF: 0 cyanocobalamin (vitamin B-12) [Vitamin B-12] 1,000 mcg Tablet 1,000 mcg PO DAILY RF: 0 amlodipine 2.5 mg Tablet 2.5 mg PO DAILY RF: 0 aspirin [Aspir-81] 81 mg Tablet,Delayed Release (Dr/Ec) 81 mg PO DAILY RF: 0 doxazosin 8 mg Tablet 8 mg PO HS RF: 0 montelukast [Singulair] 10 mg Tablet 10 mg PO PM RF: 0 hydrochlorothiazide 25 mg Tablet 12.5 mg PO DAILY RF: 0 losartan 100 mg Tablet 100 mg PO DAILY RF: 0 fluticasone propionate [Flonase Allergy Relief] 50 mcg/actuation Somers,Suspension 1 spray INTRANASAL DAILY RF: 0 finasteride 5 mg Tablet 5 mg PO QPM RF: 0 Anoro Ellipta 62.5-25 mcg/actuation Blister With Device 1 inh INHALATION DAILY RF: 0 Discontinued carvedilol 6.25 mg Tablet 3.125 mg PO QPM RF: 0 carvedilol 6.25 mg Tablet 6.25 mg PO QAM RF: 0 Stand-Alone Forms: [facility]/Other Patient Handouts: Hyperglycemia, Blood Sugar Check Discharge Orders: Discharge Order (Routine); Ordered 11/06/18 Ordered By: Andrew Beyer Admission Data Admit Date/Time: 11/04/18 23:03 Attending Provider: Andrew Beyer Admit Provider: Emanuel Barajas Primary Care Provider: Kenji Morrison Other Providers: Emanuel Barajas ; Kuldeep Chadwick ; Campos West ; Kenji Morrison ; Mendel Richardson ; Jone Rosado ; Jorden Latham ; Evangelina Dudley ; Mariela Soliz ; Andres Hernandez Service: Telemetry
--- NOTE | 2018-11-06 10:58 | Cardiology Progress Note ---
Date of Service November 06, 2018 Assessment & Plan (1) Near syncope: Our assumption that is that this was related to his AV block and associated ventricular asystole. Pacemaker should remedy this problem. He appears to have undergone successful implantation of dual-chamber permanent pacer without complication. He is scheduled for follow-up for wound evaluation next week. He should refrain from lifting left arm above the shoulder behind the neck for 6 weeks and keep the wound dry with the Steri-Strips intact until his follow-up next week. (2) Non-sustained ventricular tachycardia: No symptoms. Subjective This morning patient is feeling well. He has some mild discomfort at the device implant site, but this is much improved versus yesterday. He denies any breathing trouble currently. Review of Systems Review of Systems: Per HPI Physical Exam Physical Exam: Evaluation of the implant site reveals some mild ecchymosis but no significant hematoma or erythema. No drainage. Results & Data Vital Signs (Past 12 Hours) Vital Signs Temp Pulse Resp BP BP Pulse Ox 11/06/18 10:29 36.9 C 61 16 130/80 148/68 H 94 11/06/18 07:31 36.9 C 61 16 148/68 H 94 11/06/18 04:00 36.3 C L 59 L 20 130/80 96 11/05/18 23:28 36.7 C 63 19 130/79 94 Laboratory Results Abnormal Lab Results 11/05/18 11/05/18 11/06/18 16:48 21:06 06:34 WBC 6.44 RBC 4.87 Hgb 15.6 Hct 45.0 MCV 92.4 MCH 32.0 MCHC 34.7 RDW Std Deviation 43.9 RDW Coeff of Tyrell 12.9 Plt Count 139 MPV 9.9 Immature Gran % (Auto) 0.2 Neut % (Auto) 62.6 Lymph % (Auto) 22.4 Haskell % (Auto) 10.6 Eos % (Auto) 4.0 Baso % (Auto) 0.2 Immature Gran # (Auto) 0.01 Neut # (Auto) 4.04 Lymph # (Auto) 1.44 Haskell # (Auto) 0.68 H Eos # (Auto) 0.26 Baso # (Auto) 0.01 Sodium Potassium Chloride Carbon Dioxide Anion Gap BUN Creatinine Est Cr Clr Drug Dosing Est GFR ( Amer) Est GFR (Non-Af Amer) BUN/Creatinine Ratio Glucose POC Glucose 98 109 H Calcium 11/06/18 11/06/18 06:34 07:17 WBC RBC Hgb Hct MCV MCH MCHC RDW Std Deviation RDW Coeff of Tyrell Plt Count MPV Immature Gran % (Auto) Neut % (Auto) Lymph % (Auto) Haskell % (Auto) Eos % (Auto) Baso % (Auto) Immature Gran # (Auto) Neut # (Auto) Lymph # (Auto) Haskell # (Auto) Eos # (Auto) Baso # (Auto) Sodium 138 Potassium 3.8 Chloride 103 Carbon Dioxide 28 Anion Gap 7.0 BUN 21 H Creatinine 1.24 Est Cr Clr Drug Dosing 53.9 Est GFR ( Amer) 64.1 Est GFR (Non-Af Amer) 55.3 BUN/Creatinine Ratio 16.5 Glucose 130 H POC Glucose 133 H Calcium 9.0 Diagnostic Findings Chest x-ray obtained this morning revealed adequate lead placement without evidence of pneumothorax or complication. A complete device interrogation revealed normal function of both the atrial and ventricular leads.
== END 2018-11-06 13:00 | disposition home or self-care (01) | DRG 244 ==
LOC: ED 20:07 → 2S 23:03
DX: Z79.82 Long term (current) use of aspirin; I47.2 Ventricular tachycardia; I25.10 Atherosclerotic heart disease of native coronary artery without angina pectoris; J44.9 Chronic obstructive pulmonary disease, unspecified; I44.2 Atrioventricular block, complete; E11.9 Type 2 diabetes mellitus without complications; E53.8 Deficiency of other specified B group vitamins; I10 Essential (primary) hypertension; N40.0 Benign prostatic hyperplasia without lower urinary tract symptoms; J31.0 Chronic rhinitis; E78.5 Hyperlipidemia, unspecified; Z82.49 Family history of ischemic heart disease and other diseases of the circulatory system; Z88.8 Allergy status to other drugs, medicaments and biological substances; J64 Unspecified pneumoconiosis; R55 Syncope and collapse; Z87.891 Personal history of nicotine dependence

== ENCOUNTER 2018-11-26 09:17 | Inpatient (IN) ==
[2018-11-26 09:47] LABS: Basophils # (auto) 0.02 K/uL (0-0.2); Basophils % (auto) 0.3 %; Eosinophils # (auto) 0.23 K/uL (0-0.5); Eosinophils % (auto) 3.9 %; Hematocrit (blood only) 43.4 % (42-52); Hemoglobin 15.8 g/dL (14.0-18.0); Immature Granulocytes # (auto) 0.01 K/uL (0.00-0.02); Immature Granulocytes % (auto) 0.2 %; Lymphocytes # (auto) 1.62 K/uL (1.2-3.4); Lymphocytes % (auto) 27.5 %; Mean Corpuscular Hgb Conc 36.4 g/dL (32-36); Mean Corpuscular Volume 90.8 fL (80-100); Mean Platelet Volume 10.1 fL (7.4-10.4); Monocytes # (auto) 0.54 K/uL (0.11-0.59); Monocytes % (auto) 9.2 %; Neutrophils # (auto) 3.47 K/uL (1.4-6.5); Neutrophils % (auto) 58.9 %; Platelet Count 166 K/uL (130-400); RDW Coefficient of Variation 13.1 % (11.5-14.5); RDW Standard Deviation 43.1 fL (36.4-46.3); Red Blood Count 4.78 M/uL (4.7-6.1); White Blood Count 5.89 K/uL (4.8-10.8)
[2018-11-26 09:55] LABS: Albumin Level 3.7 gm/dl (3.4-5.0); BUN Creatinine Ratio 15.6 (10-20); Calcium 9.3 mg/dl (8.5-10.1); Creatinine Clr Calc Pharmacy 57.1 ml/min; Est GFR (African American) 68.8; Est GFR (Non-African American) 59.4; Magnesium 1.9 mg/dl (1.8-2.4); Potassium 3.4 mmol/L (3.5-5.1)
[2018-11-26 10:10] LABS: Albumin Globulin Ratio 0.8 (0.9-2); Bilirubin,Total 0.8 mg/dl (0.2-1); Globulin 4.5 gm/dl (2.5-4.0); Total Protein 8.2 gm/dl (6.4-8.2); Troponin I 0.149 ng/ml (0-0.045)
--- NOTE | 2018-11-26 10:10 | XRay Report ---
XR chest 1V portable HISTORY: Atypical Chest Pain COMPARISON: Chest 11/06/2018. FINDINGS: Left-sided dual-chamber pacemaker is again noted. The ventricular lead is positioned more i nferior than expected. No pneumothorax. No pleural effusions. The cardiac silhouette remains mildly e nlarged. Cardiac valve prosthesis is again noted. Bilateral suprahilar airspace opacities and hilar r etraction persist. This is consistent with progressive massive fibrosis. Calcified mediastinal and hi lar lymph nodes. IMPRESSION: 1. The left ventricular leads appear more inferiorly positioned compared to the prior study. Recommen d dedicated PA and lateral views of the chest to evaluate for lead migration/displacement. 2. Redemonstration of the progressive massive fibrosis. Electronically signed by: Sergio Holm M.D. 11/26/2018 10:09 AM
[2018-11-26] MEDS ORDERED: NITROGLYCERIN SL 0.4 MG/TAB TAB SL STA (10:22)
[2018-11-26 10:31] LABS: Prothrombin Time 10.6 Seconds (9.0-12.0)
--- NOTE | 2018-11-26 10:45 | XRay Report ---
XR chest 2V routine HISTORY: lead placement COMPARISON: Chest 11/23/2018. FINDINGS: There is again noted a left-sided dual-chamber pacemaker. The leads appear in good position . Mitral valve prosthesis is noted. No pleural effusions. No pneumothorax. Cardiac silhouette is stab le in size. Bilateral upper lobe/suprahilar airspace opacities persist and are consistent with progre ssive massive fibrosis. IMPRESSION: The left-sided pacemaker leads appear in good position. Electronically signed by: Sergio Holm M.D. 11/26/2018 10:44 AM
--- NOTE | 2018-11-26 11:10 | Emergency Department Note ---
Entered by Helena Herndon acting as a scribe for History of Present Illness General Chief complaint: Chest Pain Source: patient Mode of arrival: EMS Limitations: no limitations History of Present Illness Onset (ago): hour(s) (0300) Location: chest Radiation: extremity (upper extremity) and other (chest, teeth) Pain Consistency: + other (waxing and waning) Maximum Pain Intensity: 0 Quality: + other ( The patient describes the pain as a and irritating ache. He notes that the pain decreased to a numbing ache upon EMS arrival. ) Exacerbated By: + none; not by movement Associated symptoms: + chest pain and + shortness of breath (intermittent); no nausea/vomiting, no syncope and no other (The patient denies recent trauma, leg edema, and diarrhea. ) Treatments prior to arrival: aspirin (He states that he took 324 aspirin prior to EMS arrival.) The patient is a 78 year old male with a history of a pacemaker placed on 11/05/18, CHF, and valve replacement who presents to the ED via EMS with complaints of waxing and waning chest pain that onset at 0300. He notes that the pain woke him up from sleep. The patient states that he sat on the edge of his bed for an hour, went into the living room, and fell back asleep until 0600. He states that the pain started in his left shoulder and radiates down into his lower extremity, up into his chest, and teeth. The patient describes the pain as a and irritating ache. He notes that the pain decreased to a numbing ache upon EMS arrival. He states that the pain is not execrated by movement or deep breathing. The patient complains of intermittent shortness of breath. He denies chest pain at this time. The patient denies recent trauma, leg edema, syncope, nausea, vomiting, and diarrhea. He states that he took 324 aspirin prior to EMS arrival. The patient notes that his last stress test was at [facility] a year and a half ago. Home Medications Home Medications Medication Instructions Recorded Confirmed Type Anoro Ellipta 1 inh INHALATION DAILY 11/04/18 11/26/18 History amlodipine 2.5 mg PO DAILY 11/04/18 11/26/18 History aspirin [Aspir-81] 81 mg PO DAILY 11/04/18 11/26/18 History atorvastatin 10 mg PO HS 11/04/18 11/26/18 History cyanocobalamin (vitamin B-12) 1,000 mcg PO DAILY 11/04/18 11/26/18 History [Vitamin B-12] doxazosin 8 mg PO HS 11/04/18 11/26/18 History finasteride 5 mg PO QPM 11/04/18 11/26/18 History hydrochlorothiazide 12.5 mg PO DAILY 11/04/18 11/26/18 History losartan 100 mg PO DAILY 11/04/18 11/26/18 History metformin 500 mg PO BIDM 11/04/18 11/26/18 History montelukast [Singulair] 10 mg PO PM 11/04/18 11/26/18 History metoprolol succinate 50 mg PO QAM 30 Days #30 tab 11/06/18 11/26/18 Rx Allergies Allergy/AdvReac Type Severity Reaction Status Date / Time pravastatin Allergy Severe MUSCLE, Verified 11/26/18 09:44 BODY ACHES Past Med/Surg History Medical History Pacemaker (Chronic) Non-sustained ventricular tachycardia (Resolved) Third degree heart block (Chronic) s/p pacemaker placement on 11/05/18 HTN (hypertension) (Chronic) COPD, moderate (Chronic) RBBB (Chronic) BPH (benign prostatic hyperplasia) (Chronic) Dyslipidemia (Chronic) Pulmonary fibrosis (Chronic) CAD (coronary artery disease) (Chronic) "cath 10/2011 - 60% mid LAD stenosis" Valvular cardiomyopathy (Resolved) Surgical History H/O inguinal hernia repair (Chronic) History of total left hip replacement (Chronic) "and revision" 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 and A total of 10 systems reviewed and were otherwise negative Physical Exam Vital Signs Vital Signs - 24 hr 11/26/18 09:23 11/26/18 10:27 11/26/18 10:53 Temperature 36.5 C Temperature Source Oral Sepsis Recent Fever Within 48 Hours No Sepsis New/Unexplained Change in Mental Status No Sepsis Action Taken by Nursing No Action Required Pulse Rate 75 71 Pulse Rate from SpO2 Sensor Respiratory Rate 16 16 Blood Pressure 100/65 110/64 Blood Pressure [Right Arm] 138/78 Blood Pressure Mean 76 79 Blood Pressure Mean [Right Arm] 98 Pulse Oximetry 96 Oxygen Delivery Method Room Air 11/26/18 11:01 11/26/18 11:30 11/26/18 11:48 Temperature Temperature Source Sepsis Recent Fever Within 48 Hours Sepsis New/Unexplained Change in Mental Status Sepsis Action Taken by Nursing Pulse Rate 67 73 Pulse Rate from SpO2 Sensor Respiratory Rate 16 22 Blood Pressure 99/59 L 97/63 L Blood Pressure [Right Arm] Blood Pressure Mean 72 74 Blood Pressure Mean [Right Arm] Pulse Oximetry 95 Oxygen Delivery Method Room Air 11/26/18 12:01 11/26/18 12:30 11/26/18 13:00 Temperature Temperature Source Sepsis Recent Fever Within 48 Hours Sepsis New/Unexplained Change in Mental Status Sepsis Action Taken by Nursing Pulse Rate 69 68 60 Pulse Rate from SpO2 Sensor 55 L 51 L 60 Respiratory Rate 21 13 16 Blood Pressure 107/74 118/78 110/79 Blood Pressure [Right Arm] Blood Pressure Mean 85 91 89 Blood Pressure Mean [Right Arm] Pulse Oximetry 97 95 95 Oxygen Delivery Method Room Air Room Air Room Air GENERAL: Awake, alert, well-appearing, in no distress HENT: Normocephalic, atraumatic. EYES: Normal conjunctiva. Sclera non-icteric. NECK: Supple. No nuchal rigidity. RESPIRATORY: Clear to auscultation. Normal respiratory effort. CARDIAC: Irregular rhythm, left upper chest wall pacemaker with steri strips, no significant erythema. Extremities warm and well perfused. GI: Soft, non-distended. No tenderness to palpation. RECTAL: Deferred. MUSCULOSKELETAL: Atraumatic. Chest examination reveals no tenderness. LOWER EXTREMITIES: Calves are equal size bilaterally and non-tender. No edema NEURO: Normal sensorium. No sensory or motor deficits noted. No facial droop. SKIN: Warm and dry. No rash or jaundice noted. Course 09: Past medical records reviewed. The patient was evaluated in room B11B. A complete history and physical examination was performed. 1047: I reviewed the patient's case with Dr. Kenji Morrison - Delinquent Account Clerk. He states that he wants an echo and to interrogate his pacer. He will evaluate the patient for further management. Consultations Consultation #1: 1047: I reviewed the patient's case with Dr. Kenji Morrison - Delinquent Account Clerk. He states that he wants an echo and to interrogate his pacer. He will evaluate the patient for further management. 1104: I reviewed the patient's case with Swapna Schultz. She will evaluate the patient for further management. Time: 10:47 Consultation #2: 1104: I reviewed the patient's case with Swapna Schultz. She will evaluate the patient for further management. Time: 11:04 Administered Medications Discontinued Medications Fentanyl Citrate (Fentanyl Citrate) Confirm Administered Dose 100 mcg .ROUTE .STK-MED ONE Stop: 11/26/18 13:17 Last Increment: 11/26/18 14:55 Dose: 37.5 mcg Documented by: [id number] Heparin Sodium (Porcine) (Heparin Iv Bolus (Food Products Sales Representative Use Only)) Confirm A dministered Dose 10,000 units .ROUTE .STK-MED ONE Stop: 11/26/18 13:17 Last Admin: 11/26/18 14:55 Dose: 9,000 units Documented by: [id number] Heparin Sodium/Sodium Chloride (Heparin/Nss 1000 Unit/500ml Flush Bag) Confirm Administered Dose 3,000 units IV .STK-MED ONE Stop: 11/26/18 13:18 Last Admin: 11/26/18 13:47 Dose: 3,000 units Documented by: [id number] Midazolam HCl (Versed) Confirm Administered Dose 2 mg .ROUTE .STK-MED ONE Stop: 11/26/18 13:17 Last Admin: 11/26/18 14:56 Dose: 2 mg Documented by: [id number] Nicardipine HCl (Cardene) Confirm Administered Dose 25 mg .ROUTE .STK-MED ONE Stop: 11/26/18 13:17 Last Admin: 11/26/18 13:47 Dose: 25 mg Documented by: [id number] Nitroglycerin (Nitrostat) 0.4 mg SL NOW STA Stop: 11/26/18 10:23 Last Admin: 11/26/18 10:27 Dose: 0.4 mg Documented by: [id number] Nitroglycerin/Dextrose (Nitroglycerin/D5w 100 Mcg/Ml 20ml Syringe) Confirm Administered Dose 2,000 mcg .ROUTE .STK-MED ONE Stop: 11/26/18 13:18 Last Admin: 11/26/18 13:47 Dose: 2,000 mcg Documented by: [id number] Medical Decision Making Differential Diagnosis Differential diagnoses: Acute coronary syndrome, myocardial infarction, pericarditis, pulmonary embolus, aortic dissection, pneumonia, pneumothorax, musculoskeletal, shingles, esophage al. Medical Records Attestation: I reviewed the patient's medical records. Home Medications Current Medication List: was personally reviewed by me Laboratory Data Attestation: I reviewed the patient's lab results. Result diagrams: 11/26/18 09:00 11/26/18 09:00 Lab Results 11/26/18 11/26/18 11/26/18 Range/Units 09:00 09:00 09:50 WBC 5.89 (4.8-10.8) K/uL RBC 4.78 (4.7-6.1) M/uL Hgb 15.8 (14.0-18.0) g/dL Hct 43.4 (42-52) % MCV 90.8 (80-100) fL MCH 33.1 (25-34) pg MCHC 36.4 H (32-36) g/dL RDW Std Deviation 43.1 (36.4-46.3) fL RDW Coeff of Tyrell 13.1 (11.5-14.5) % Plt Count 166 (130-400) K/uL MPV 10.1 (7.4-10.4) fL Immature Gran % (Auto) 0.2 % Neut % (Auto) 58.9 % Lymph % (Auto) 27.5 % [place] % (Auto) 9.2 % Eos % (Auto) 3.9 % Baso % (Auto) 0.3 % Immature Gran # (Auto) 0.01 (0.00-0.02) K/uL Neut # (Auto) 3.47 (1.4-6.5) K/uL Lymph # (Auto) 1.62 (1.2-3.4) K/uL [place] # (Auto) 0.54 (0.11-0.59) K/uL Eos # (Auto) 0.23 (0-0.5) K/uL Baso # (Auto) 0.02 (0-0.2) K/uL PT 10.6 (9.0-12.0) Seconds INR 1.0 (0.9-1.1) Sodium 139 (136-145) mmol/L Potassium 3.4 L (3.5-5.1) mmol/L Chloride 105 (98-107) mmol/L Carbon Dioxide 25 (21-32) mmol/L Anion Gap 9.0 (3-11) BUN 18 (7-18) mg/dl Creatinine 1.17 (0.6-1.4) mg/dl Est Cr Clr Drug Dosing 57.1 ml/min Est GFR ( Amer) 68.8 Est GFR (Non-Af Amer) 59.4 BUN/Creatinine Ratio 15.6 (10-20) Glucose 151 H (70-99) mg/dl Calcium 9.3 (8.5-10.1) mg/dl Magnesium 1.9 (1.8-2.4) mg/dl Total Bilirubin 0.8 (0.2-1) mg/dl AST 20 (15-37) U/L ALT 23 (12-78) U/L Alkaline Phosphatase 64 (45-117) U/L POC Troponin I (0-0.045) ng/ml Troponin I 0.149 H* (0-0.045) ng/ml Total Protein 8.2 (6.4-8.2) gm/dl Albumin 3.7 (3.4-5.0) gm/dl Globulin 4.5 H (2.5-4.0) gm/dl Albumin/Globulin Ratio 0.8 L (0.9-2) Lipase 90 (73-393) U/L 11/26/18 Range/Units 09:55 WBC (4.8-10.8) K/uL RBC (4.7-6.1) M/uL Hgb (14.0-18.0) g/dL Hct (42-52) % MCV (80-100) fL MCH (25-34) pg MCHC (32-36) g/dL RDW Std Deviation (36.4-46.3) fL RDW Coeff of Tyrell (11.5-14.5) % Plt Count (130-400) K/uL MPV (7.4-10.4) fL Immature Gran % (Auto) % Neut % (Auto) % Lymph % (Auto) % [place] % (Auto) % Eos % (Auto) % Baso % (Auto) % Immature Gran # (Auto) (0.00-0.02) K/uL Neut # (Auto) (1.4-6.5) K/uL Lymph # (Auto) (1.2-3.4) K/uL [place] # (Auto) (0.11-0.59) K/uL Eos # (Auto) (0-0.5) K/uL Baso # (Auto) (0-0.2) K/uL PT (9.0-12.0) Seconds INR (0.9-1.1) Sodium (136-145) mmol/L Potassium (3.5-5.1) mmol/L Chloride (98-107) mmol/L Carbon Dioxide (21-32) mmol/L Anion Gap (3-11) BUN (7-18) mg/dl Creatinine (0.6-1.4) mg/dl Est Cr Clr Drug Dosing ml/min Est GFR ( Amer) Est GFR (Non-Af Amer) BUN/Creatinine Ratio (10-20) Glucose (70-99) mg/dl Calcium (8.5-10.1) mg/dl Magnesium (1.8-2.4) mg/dl Total Bilirubin (0.2-1) mg/dl AST (15-37) U/L ALT (12-78) U/L Alkaline Phosphatase (45-117) U/L POC Troponin I 0.09 H (0-0.045) ng/ml Troponin I (0-0.045) ng/ml Total Protein (6.4-8.2) gm/dl Albumin (3.4-5.0) gm/dl Globulin (2.5-4.0) gm/dl Albumin/Globulin Ratio (0.9-2) Lipase (73-393) U/L Imaging Data Radiologist's Impression: Radiology results as stated below per my review and the radiologist's interpretation: XR chest 2V routine HISTORY: lead placement COMPARISON: Chest 11/23/2018. FINDINGS: There is again noted a left-sided dual-chamber pacemaker. The leads appear in good position. Mitral valve prosthesis is noted. No pleural effusions. No pneumothorax. Cardiac silhouette is stable in size. Bilateral upper lobe/suprahilar airspace opacities persist and are consistent with progressive massive fibrosis. IMPRESSION: The left-sided pacemaker leads appear in good position. Electronically signed by: Sergio Holm M.D. 11/26/2018 10:44 AM Dictated: 11/26/18 1043 Transcribed: 11/26/18 1043 XR chest 1V portable HISTORY: Atypical Chest Pain COMPARISON: Chest 11/06/2018. FINDINGS: Left-sided dual-chamber pacemaker is again noted. The ventricular lead is positioned more inferior than expected. No pneumothorax. No pleural effusions. The cardiac silhouette remains mildly enlarged. Cardiac valve prosthesis is again noted. Bilateral suprahilar airspace opacities and hilar retraction persist. This is consistent with progressive massive fibrosis. Calc ified mediastinal and hilar lymph nodes. IMPRESSION: 1. The left ventricular leads appear more inferiorly positioned compared to the prior study. Recommend dedicated PA and lateral views of the chest to evaluate for lead migration/displacement. 2. Redemonstration of the progressive massive fibrosis. Electronically signed by: Sergio Holm M.D. 11/26/2018 10:09 AM Dictated: 11/26/18 1000 Transcribed: 11/26/18 1000 ECG Data Attestation: I personally reviewed and interpreted this ECG as follows: Indication: chest pain Rate (beats per minute): 71 Rhythm: other (atrially paced) Findings: + other (ventricularly paced complexes), + PVC, + RBBB and + ST depression (lateral) Blood Pressure Blood Pressure Findings: Normal blood pressure MDM Narrative 78-year-old gentleman with a history of diabetes, COPD, coworkers pneumoconiosis, hypertension, CAD, mitral valve repair recently status post pacemaker implantation secondary to nonsustained ventricular tachycardia high- grade heart block the beginning of this month presents today via EMS with a c omplaint of chest pain. Reports the chest pain started around 3 AM this morning. A dull ache in the left shoulder without relieving factors. Denies any syncopal or palpitation symptomatology. Took aspirin prior to arrival. Denies any difficulty breathing, trauma, nausea, vomiting, diarrhea. Patient also states that he is currently experiencing very minimal pain. His pain still exists a little bit on the left shoulder and left axillary area. Denies any recent leg swelling. Very minimal difficulty breathing. Pacemaker site itself does not appear significantly erythematous or tender. Doubt infection here. Patient's EKG shows evidence of PVCs with a right bundle branch block and appe ars to be new ST segment depressions laterally. Chest x-ray completed with additional views to help confirm pacemaker placement. No evidence of hemothorax or pneumothorax. Doubt this is dissection or PE. Blood counts within normal limits. Electrolytes within normal limit. Troponin was completed and positive. Patient has had waxing and waning pain. Blood pressure improved was given nitroglycerin. Already received aspirin prior to arrival. Discussed with cardiology and will admit the patient to [facility] for further evaluation. Pacemaker interrogation ordered and discussed with cardiology will hold off on anticoagulation further. Stat echo to be performed. Impression & Plan Non-ST elevation AR (NSTEMI) Critical Care Time I have personally spent 30 minutes of critical care time in the direct management of this patient. This includes bedside care, interpretation of diagnostic studies, and testing, discussion with consultants, patient, and family members, and other required patient management activities. These 30 minutes is in excess of all separately billable procedures. Critical Care Time: Yes Total Critical Care Time: 30 Discharge Plan Visit Data Chief Complaint: Chest Pain ED Provider: Jared Trejo Discharge Problem: Non-ST elevation AR (NSTEMI) Patient Disposition: Being Evaluated by Hospitalist Discharge Instructions Interventions: ED Discharge Assessment Last Done: 11/26/18 13:30 The scribe's documentation has been prepared under my direction and personally reviewed by me in its entirety. I confirm that the note above accurately reflects all work, treatment, procedures, and medical decision making performed by me.
[2018-11-26] MEDS ORDERED: fentaNYL citrate 100 MCG/2 ML VIAL ONE (13:16)
[2018-11-26] MEDS ORDERED: NiCARDipine HCL INJ 2.5 MG/ML 10 ML AMP ONE (13:16)
[2018-11-26] MEDS ORDERED: HEPARIN (PORCINE) 1000 UNIT/ML 10 ML (CATH LAB USE ONLY) ONE (13:16)
[2018-11-26] MEDS ORDERED: MIDAZOLAM HCL 1 MG/ML 2ML VIAL ONE (13:16)
[2018-11-26] MEDS ORDERED: NITROGLYCERIN/D5W 100MCG/ML 20ML SYR ONE (13:17)
--- NOTE | 2018-11-26 13:37 | Pre Anesthesia Assessment ---
Date of Service November 26, 2018 Pre Sedation Assessment Vital Signs Temp Pulse Resp BP BP Pulse Ox 11/26/18 13:00 60 16 110/79 95 11/26/18 12:30 68 13 118/78 95 11/26/18 12:01 69 21 107/74 97 11/26/18 11:48 95 11/26/18 11:30 73 22 97/63 L 11/26/18 11:01 67 16 99/59 L 11/26/18 10:53 71 16 110/64 11/26/18 10:27 138/78 11/26/18 09:23 36.5 C 75 16 100/65 96 Cardiovascular + regular rate and + regular rhythm + murmur; no gallop + radial pulses present; no JVD Respiratory normal respiratory effort, lungs clear to auscultation Pre-Sedation Airway Assessment Smoking Status: Never smoker Hx Sleep Apnea: No Hx Difficult Intubation: No Mallampati Class: II NPO Status Date of Last Intake of Fluids: 11/25/18 Date of Last Intake of Solid Food: 11/25/18 Procedure Planning Contraindications for Sedation: none Current Medications Reviewed: Yes Notes The planned sedation has been discussed with the patient. Informed Consent was obtained. I have identified the patient, determined the appropriateness of sedation and have assessed the patient immediately prior to the procedure. All medicine(s) and interventions are by my order.
--- NOTE | 2018-11-26 13:37 | History & Physical Report ---
Date of Service November 26, 2018 Assessment & Plan (1) Non-ST elevation [place] (NSTEMI): This is a 78-year-old male with a PMH of third-degree heart block s/p pacemaker placement on 11/05/18, known CAD (with 60% mid LAD stenosis by cardiac cath in 2011), HTN, HLD, h/o mitral valve repair, GERD, pulmonary fibrosis who presents with chest pain beginning early this morning and was found to have an NSTEMI and is s/p PCI to mid circumflex. -Developed chest pain this morning with radiation to left arm, jaw -Pain resolved after ntg upon arrival -EKG with new ST changes in lateral leads -Initial troponin elevated at 0.149 -Dr. Morrison called to evaluate and stat echo was performed which revealed pos terior wall severe hypokinesis at base as well as mid inferior wall hypokinesis. EF of 45-50%. No evidence of mitral stenosis or insufficiency regarding mitral valve repair with annuloplasty ring -Was taken to laboratory clerk and found to have severe single-vessel CAD with 99% stenosis involving mid-circumflex -Loaded with plavix in laboratory clerk. Continue dual antiplatelet therapy x 1 year -Continue high dose statin, beta kieran -Monitor in PCU (2) Third degree heart block: (3) Pacemaker: Pacemaker complication excluded upon arrival (4) HTN (hypertension): Normotensive -Continue HCTZ, Losartan and Toprol (5) Pulmonary fibrosis: Saturating at 94% on room air -Continue Anoro Ellipta inhaler, singulair (6) Diabetes mellitus, type II: A1c of 6.6 earlier in november 2018 -Hold home agents -SSI while in-patient -[facility] (7) BPH (benign prostatic hyperplasia): Continue doxazosin and finasteride (8) Dyslipidemia: Increased statin dose, to be continued at discharge DVT Ppx: SCDs for now Code status: FULL PCP: Liam Dispo: Admitted to telemetry. Plan to return home once medically stable. Patient seen in collaboration with Dr. Barajas. Please see addendum. History of Present Illness Chief Complaint: Chest pain Primary Care Provider: Brett Wheeler MD This is a 78-year-old male with a PMH of third-degree heart block s/p pacemaker placement on 11/05/18, known CAD (with 60% mid LAD stenosis by cardiac cath in 2011), HTN, HLD, h/o mitral valve repair, GERD, pulmonary fibrosis who presents with chest pain beginning early this morning. Patient was admitted at the beginning of November for near syncopal event and was found to have third-degree heart block and nonsustained V. tach. Underwent dual-chamber pacemaker placement by Dr. Hernandez during that admission. Has been feeling well up until early this morning, when he woke up at 0300 with severe left-sided chest pain that only lasted a minute or so but continued to have an aching pain for the next few hours until he was able to fall back asleep. Then awakened again with chest pain again that radiated down radiation to left arm and up to teeth. Not associated with diaphoresis, nausea or vomiting. No near syncope, lightheadedness or palpitations. Was brought in by EMS and took a full dose aspirin in route to hospital. Patient also noted that he had been experiencing a burning pain of epigastrium in the evenings for the past few nights that he assumed was acid reflux. Has been taking an [id number] antacid with relief of symptoms. Found to be hemodynamically stable with resolution of chest pain after NTG. EKG with new ST changes in lateral leads. Troponin elevated at 0.149. Dr. Morrison called to evaluate and stat echo was performed which revealed posterior wall severe hypokinesis at base as well as mid inferior wall hypokinesis. EF of 45- 50%. No evidence of mitral stenosis or insufficiency regarding mitral valve repair with annuloplasty ring. PM interrogation also ordered. Patient follows with Dr. Morrison and ELSI Latham in clinic. The patient notes that his last stress test was at [facility] a year and a half ago. Allergies Allergy/AdvReac Type Severity Reaction Status Date / Time pravastatin Allergy Severe MUSCLE, Verified 11/26/18 09:44 BODY ACHES Home Medications Home Medications Medication Instructions Recorded Confirmed Type Anoro Ellipta 1 inh INHALATION DAILY 11/04/18 11/26/18 History amlodipine 2.5 mg PO DAILY 11/04/18 11/26/18 History aspirin [Aspir-81] 81 mg PO DAILY 11/04/18 11/26/18 History atorvastatin 10 mg PO HS 11/04/18 11/26/18 History cyanocobalamin (vitamin B-12) 1,000 mcg PO DAILY 11/04/18 11/26/18 History [Vitamin B-12] doxazosin 8 mg PO HS 11/04/18 11/26/18 History finasteride 5 mg PO QPM 11/04/18 11/26/18 History hydrochlorothiazide 12.5 mg PO DAILY 11/04/18 11/26/18 History losartan 100 mg PO DAILY 11/04/18 11/26/18 History metformin 500 mg PO BIDM 11/04/18 11/26/18 History montelukast [Singulair] 10 mg PO PM 11/04/18 11/26/18 History metoprolol succinate 50 mg PO QAM 30 Days #30 tab 11/06/18 11/26/18 Rx Past Med/Surg History Medical History Pacemaker (Chronic) Non-sustained ventricular tachycardia (Resolved) Third degree heart block (Chronic) s/p pacemaker placement on 11/05/18 HTN (hypertension) (Chronic) COPD, moderate (Chronic) RBBB (Chronic) BPH (benign prostatic hyperplasia) (Chronic) Dyslipidemia (Chronic) Pulmonary fibrosis (Chronic) CAD (coronary artery disease) (Chronic) "cath 10/2011 - 60% mid LAD stenosis" Valvular cardiomyopathy (Resolved) Surgical History H/O inguinal hernia repair (Chronic) History of total left hip replacement (Chronic) "and revision" 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" Family History Other No pertinent family history Social History Preferred Language: Portuguese Communication Ability: Effective Beliefs That Will Affect Care: None Current Living Situation: Spouse Other Information That Helps Us Care for You: No Feels Safe at Home: Yes Safety Concerns: Feels Safe At This Time Smoking Status: Never smoker Hx Alcohol Use: No Hx Substance Use: No Review of Systems Review of Systems: At least ten systems reviewed and negative except as noted in the HPI. Physical Exam Physical Exam: General Appearance: WD/WN, no apparent distress, resting comfortably Head: normocephalic, atraumatic Eyes: normal inspection, PERRL, EOMI ENT: hearing grossly normal, pharynx normal (moist mucous membranes) Neck: supple, no JVD, no adenopathy Respiratory/Chest: lungs clear to auscultation. No wheezes, rales or rhonci. No respiratory distress or accessory muscle use Cardiovascular: regular with occasional ectopic beats, systolic murmur, normal peripheral pulses, no BLE edema Abdomen/GI: normal bowel sounds, soft, non-tender to palpation Extremities/Musculoskelatal: normal inspection, no calf tenderness, normal capillary refill, no pedal edema Neurologic/Psych: alert, normal mood/affect, oriented x 3 Skin: normal color, warm/dry Results & Data Vital Signs (Past 12 Hours) Vital Signs Temp Pulse Resp BP BP Pulse Ox 11/26/18 13:00 60 16 110/79 95 11/26/18 12:30 68 13 118/78 95 11/26/18 12:01 69 21 107/74 97 11/26/18 11:48 95 11/26/18 11:30 73 22 97/63 L 11/26/18 11:01 67 16 99/59 L 11/26/18 10:53 71 16 110/64 11/26/18 10:27 138/78 11/26/18 09:23 36.5 C 75 16 100/65 96 Laboratory Results Short CBC 11/26/18 Range/Units 09:00 WBC 5.89 (4.8-10.8) K/uL Hgb 15.8 (14.0-18.0) g/dL Hct 43.4 (42-52) % Plt Count 166 (130-400) K/uL BMP 11/26/18 09:00 Sodium 139 Potassium 3.4 L Chloride 105 Carbon Dioxide 25 BUN 18 Creatinine 1.17 Glucose 151 H Calcium 9.3 Cardiac Enzymes 11/26/18 Range/Units 09:00 Troponin I 0.149 H* (0-0.045) ng/ml Liver Function 11/26/18 Range/Units 09:00 Total Bilirubin 0.8 (0.2-1) mg/dl AST 20 (15-37) U/L ALT 23 (12-78) U/L Alkaline Phosphatase 64 (45-117) U/L Albumin 3.7 (3.4-5.0) gm/dl Diagnostic Findings CXR: IMPRESSION: The left-sided pacemaker leads appear in good position. ECG Findings: + PVC, + RBBB, + ST depression and + paced rhythm Supervising Physician Co-Signing Physician Notes Care coordinated with Swapna Woo PA-C. Agree with above note. Patient seen and examined. Please refer to her notes for full details. Vital signs reviewed. Physical exam: General exam: Alert and oriented. Not in acute distress. CVS: S1 and S2 heard, regular rate and rhythm, no murmurs. RS: Clear to auscultation, no wheezing or crackles. ABD: Soft, bowel sounds present, nontender, no distention. STARCH TREATING ASSISTANT: Nonfocal. EXT: No edema, no erythema. Labs: Reviewed. Assessment and plan: 78M who recently had zio patch for syncopal episodes and reading showing high g rade heart block and NSVT. Patient is s/p dual chamber pacemaker presents today with chest pain. Woke up at 3am with left shoulder and arm pain 8/10 in severity. He sat on the recliner and went to sleep and woke up again at 6:30am with same pain. No asscoiated symptoms. by the time EMS came his pain started to subside. In the ER Ekg showed St depressions in lateral leads and mild elevation of troponin. Echo showed EF 45-50% with hypokinesis at posterior and inferior and lateral johnson. Nstemi s/p cardiac cath and stent mid circumflex currently pain free close monitor in tele on aspirin, plavix, b kieran and statin Third degree heart block s/p pacemaker Other diagnosis and plan of care as per Swapna Woo PA-C. Emanuel vázquez MD.
--- NOTE | 2018-11-26 14:17 | Cardiac Catheterization ---
Cardiac Cath Procedure Full Procedure Date November 26, 2018 Pre-Procedure Diagnosis Pre-Procedure Diagnosis: Non STEMI and Acute Coronary Syndrome AUC Score AUC Score: 9 Post-Procedure Diagnosis Post-Procedure Diagnosis: Severe CAD Procedure(s) Performed Procedure(s) Performed: Coronary Angiography and Left Heart Cath Bricklayer'S Assistant Kenji Morrison MD Orthodontist Small Business Owner(s) Alvaro Burrell Estimated Blood Loss Estimated Blood Loss: <15cc Medication(s) Medication(s): Fentanyl (12.5 mcg IV), Heparin (5000 units IV), Lidocaine 1% ( local infiltration access site), Nicardipine (250 mcg intra-arterial after arterial sheath inserted) and Versed (1 mg IV) Summary of Findings Left dominant coronary anatomy Left main: Long large vessel which bifurcates into the left anterior descending left circumflex. Vessel has mild calcification but no obstruction Left anterior descending: Type III in distribution. Gives rise to a large septal branch to small diagonal branches in its midportion and courses to beyond the apex. There is moderate irregularities throughout its proximal midportion with serial 50 and 40% stenoses most severe just beyond the first septal branch. There is tapering of the origins of both diagonal branches Left circumflex: Very large dominant vessel. It gives rise to 2 small first m arginal branches a large bifurcating obtuse marginal and along the AV groove 3 posterior lateral branch and a posterior descending artery. Within the left circumflex there is a discrete 90+ percent stenosis in its proximal third LV angiography not performed Left ventricular end-diastolic pressure 12 Hemodynamics Rest Ao:: 108/54/83 Final Ao: 102/54/74 LV: 100/0/12 Recommendations Recommendations: PCI without planned CABG Specimens Specimens: None Radiation Exposure (mGy) 1337 Contrast (mls) 62 Fluids (cc crystalloids) Fluids (cc crystalloids): 25 Anesthesia Start time: 1344, stop time 1425 Procedural Complication(s) None ACC Data: Upper Lining Cementer Cardiac Status Clinical evaluation leading to the procedure CAD Presenation: Non STEMI Anginal Classification: CCS IV Heart Failure: No Cardiogenic Shock within 24 Hours: No Cardiac Arrest within 24 Hours: No Imaging Studies Past 6 Months: No (New posterior lateral wall motion abnormality on echocardiogram) Stress Studies Past 6 Months: No Standard Exercise Test: No Stress Echocardiogram: No Stress Testing w/SPECT MPI: No Cardiac CTA: No STEMI OR Non-STEMI Symptom Onset Date: 11/26/18 Symptom Onset Time: 03:00 Thrombolytics: No Coronary Anatomy Dominant: Left Left Main (% Stenosis): Normal LAD (% Stenosis): Mid (50,40) D1 (% Stenosis): Ostial (60) D2 (% Stenosis): Ostial (Sick) Circumflex (% Stenosis): Proximal (95) OM1 (% Stenosis): Normal OM2 (% Stenosis): Normal OM3 (% Stenosis): Normal L PL1 (% Stenosis): Normal L PL2 (% Stenosis): Normal L PDA (% Stenosis): Normal RCA (% Stenosis): Normal (Small nondominant) Diagnostic Physicians Name: Kenji Morrison MD Status: Urgent Closure Device Percutaneous Entry Location: Radial Closure Device: Radial Band Recommendations: PCI without planned CABG
--- NOTE | 2018-11-26 14:31 | Cardiology Consultation ---
Date of Consultation November 26, 2018 Assessment & Plan (1) Non-ST elevation [place] (NSTEMI): Patient presented with signs and symptoms of acute coronary syndrome. Pacemaker complication excluded. Echocardiogram demonstrated new posterior lateral johnson and patient was referred for urgent diagnostic cardiac catheterization study demonstrating 90% or greater high-grade proximal stenosis of the dominant left circumflex. He is referred for coronary intervention (2) Non-sustained ventricular tachycardia: Complex ventricular ectopy present but no ventricular tachycardia observed (3) Massive fibrosis of lung: Chronic progressive process with patient requiring oxygen supplementation (4) Hx of mitral valve repair: Echocardiogram performed demonstrates normally functioning mitral valve with angioplasty ring in place no mitral stenosis or significant mitral insufficiency (5) Pacemaker: History of Present Illness Reason for Consultation: Chest pain, elevated troponin, nonST segment elevation myocardial infarction Requesting Physician: Swapna Woo Attending Physician: Dr Thurman History of Present Illness Patient is a 78-year-old male with complex past medical history which includes 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 Preoperative diagnostic cardiac catheterization demonstrated left dominant coronary anatomy and a 60% mid LAD stenosis. Underlying medical problems include marked pneumoconiosis chronic hypoxia Most recently hospitalized after evaluation of complaints of near syncope led to event monitor demonstrating intermittent high degree AV block, ventricular asystole. Patient carries a history of chronic ventricular ectopy and ectopy and nonsustained VT were seen during hospitalization. Patient underwent dual- chamber pacemaker insertion 11/05/2018 uneventfully. Patient presents now having done relatively well post hospital discharge no further dizzy spells or lightheaded spells. Earlier this morning patient developed achy chest pain rating to his left shoulder approximately 3 AM symptoms kept him awake sitting in a chair until approximately 6 AM when he fell back asleep he reawakened however with worsening pain and presented to the emergency room symptoms resolved on presentation. Initial troponin is mildly elevated Chest x-ray revealed pacemaker leads in appropriate position echocardiogram demonstrated no pericardial effusion Wall motion on the rise were observed in the posterior lateral area distribution new from October 2018 At time of examination he denied ongoing chest pain noted no fevers chills or productive cough noted no bleeding difficulties notes no melena or hematochezia. Notes no rash or arthritic complaint. No neurologic complaints. Pulmonary status has been stable. Does wear oxygen as directed Allergies Allergy/AdvReac Type Severity Reaction Status Date / Time pravastatin Allergy Severe MUSCLE, Verified 11/26/18 09:44 BODY ACHES Home Medications Home Medications Medication Instructions Recorded Confirmed Type Anoro Ellipta 1 inh INHALATION DAILY 11/04/18 11/26/18 History amlodipine 2.5 mg PO DAILY 11/04/18 11/26/18 History aspirin [Aspir-81] 81 mg PO DAILY 11/04/18 11/26/18 History atorvastatin 10 mg PO HS 11/04/18 11/26/18 History cyanocobalamin (vitamin B-12) 1,000 mcg PO DAILY 11/04/18 11/26/18 History [Vitamin B-12] doxazosin 8 mg PO HS 11/04/18 11/26/18 History finasteride 5 mg PO QPM 11/04/18 11/26/18 History hydrochlorothiazide 12.5 mg PO DAILY 11/04/18 11/26/18 History losartan 100 mg PO DAILY 11/04/18 11/26/18 History metformin 500 mg PO BIDM 11/04/18 11/26/18 History montelukast [Singulair] 10 mg PO PM 11/04/18 11/26/18 History metoprolol succinate 50 mg PO QAM 30 Days #30 tab 11/06/18 11/26/18 Rx Patient History Medical History CHF (congestive heart failure) Pacemaker Non-sustained ventricular tachycardia (Acute) Near syncope (Acute) Third degree heart block (Acute) HTN (hypertension) (Chronic) COPD, moderate (Chronic) RBBB (Chronic) BPH (benign prostatic hyperplasia) (Chronic) Dyslipidemia (Chronic) Pulmonary fibrosis (Chronic) CAD (coronary artery disease) (Chronic) "cath 10/2011 - 60% mid LAD stenosis" Valvular cardiomyopathy (Resolved) Precordial chest pain (Acute) No pertinent family history Surgical History H/O inguinal hernia repair (Chronic) History of total left hip replacement (Chronic) "and revision" 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" Family History Other No pertinent family history Social History Preferred Language: Hebrew Communication Ability: Effective Beliefs That Will Affect Care: None Current Living Situation: Spouse Other Information That Helps Us Care for You: No Feels Safe at Home: Yes Safety Concerns: Feels Safe At This Time Smoking Status: Never smoker Hx Alcohol Use: No Hx Substance Use: No Results & Data Vital Signs (Past 12 Hours) Vital Signs Temp Pulse Resp BP BP Pulse Ox 11/26/18 13:00 60 16 110/79 95 11/26/18 12:30 68 13 118/78 95 11/26/18 12:01 69 21 107/74 97 11/26/18 11:48 95 11/26/18 11:30 73 22 97/63 L 11/26/18 11:01 67 16 99/59 L 11/26/18 10:53 71 16 110/64 11/26/18 10:27 138/78 11/26/18 09:23 36.5 C 75 16 100/65 96 Laboratory Results Laboratory Results - last 24 hr 11/26/18 11/26/18 11/26/18 09:00 09:00 09:50 WBC 5.89 RBC 4.78 Hgb 15.8 Hct 43.4 MCV 90.8 MCH 33.1 MCHC 36.4 H RDW Std Deviation 43.1 RDW Coeff of Tyrell 13.1 Plt Count 166 MPV 10.1 Immature Gran % (Auto) 0.2 Neut % (Auto) 58.9 Lymph % (Auto) 27.5 Fallon % (Auto) 9.2 Eos % (Auto) 3.9 Baso % (Auto) 0.3 Immature Gran # (Auto) 0.01 Neut # (Auto) 3.47 Lymph # (Auto) 1.62 Fallon # (Auto) 0.54 Eos # (Auto) 0.23 Baso # (Auto) 0.02 PT 10.6 INR 1.0 Sodium 139 Potassium 3.4 L Chloride 105 Carbon Dioxide 25 Anion Gap 9.0 BUN 18 Creatinine 1.17 Est Cr Clr Drug Dosing 57.1 Est GFR ( Amer) 68.8 Est GFR (Non-Af Amer) 59.4 BUN/Creatinine Ratio 15.6 Glucose 151 H Calcium 9.3 Magnesium 1.9 Total Bilirubin 0.8 AST 20 ALT 23 Alkaline Phosphatase 64 POC Troponin I Troponin I 0.149 H* Total Protein 8.2 Albumin 3.7 Globulin 4.5 H Albumin/Globulin Ratio 0.8 L Lipase 90 11/26/18 09:55 WBC RBC Hgb Hct MCV MCH MCHC RDW Std Deviation RDW Coeff of Tyrell Plt Count MPV Immature Gran % (Auto) Neut % (Auto) Lymph % (Auto) Fallon % (Auto) Eos % (Auto) Baso % (Auto) Immature Gran # (Auto) Neut # (Auto) Lymph # (Auto) Fallon # (Auto) Eos # (Auto) Baso # (Auto) PT INR Sodium Potassium Chloride Carbon Dioxide Anion Gap BUN Creatinine Est Cr Clr Drug Dosing Est GFR ( Amer) Est GFR (Non-Af Amer) BUN/Creatinine Ratio Glucose Calcium Magnesium Total Bilirubin AST ALT Alkaline Phosphatase POC Troponin I 0.09 H Troponin I Total Protein Albumin Globulin Albumin/Globulin Ratio Lipase Diagnostic Findings Cardiac catheterization 11/26/2018 Summary of Findings Left dominant coronary anatomy Left main: Long large vessel which bifurcates into the left anterior descending left circumflex. Vessel has mild calcification but no obstruction Left anterior descending: Type III in distribution. Gives rise to a large septal branch to small diagonal branches in its midportion and courses to beyond the apex. There is moderate irregularities throughout its proximal midportion with serial 50 and 40% stenoses most severe just beyond the first septal branch. There is tapering of the origins of both diagonal branches Left circumflex: Very large dominant vessel. It gives rise to 2 small first marginal branches a large bifurcating obtuse marginal and along the AV groove 3 posterior lateral branch and a posterior descending artery. Within the left circumflex there is a discrete 90+ percent stenosis in its proximal third LV angiography not performed Left ventricular end-diastolic pressure 12
[2018-11-26] MEDS ORDERED: CLOPIDOGREL BISULFATE 300 MG TAB ONE (14:50)
--- NOTE | 2018-11-26 14:58 | Post Anesthesia Assessment ---
Date of Service November 26, 2018 Post Sedation Assessment Vital Signs Temp Pulse Resp BP BP Pulse Ox 11/26/18 13:00 60 16 110/79 95 11/26/18 12:30 68 13 118/78 95 11/26/18 12:01 69 21 107/74 97 11/26/18 11:48 95 11/26/18 11:30 73 22 97/63 L 11/26/18 11:01 67 16 99/59 L 11/26/18 10:53 71 16 110/64 11/26/18 10:27 138/78 11/26/18 09:23 36.5 C 75 16 100/65 96 Post Sedation Plan On clinical assessment, the patient appears to have tolerated the sedation without complications. Patient is recovering as anticipated. Patient will continue to be monitored by nursing and may be discharged when sedation discharge criteria are met per below protocol. Upon Completions of procedure and additional 15 minutes continue every 5 minute vital signs and the P.A.R. score; then discharge to a Phase I or Fast Track to Phase II per the following guidelines: * Discharge Patient to appropriate Phase II area if PAR is 8 or greater or return to pre- procedure baseline. The post - procedure orders will be as directed. * If PAR score is less than 8 or not return to pre-procedure baseline then patient will follow Phase I monitoring till PAR is reached for Phase II. The Phase I may be done in procedure room or may call to secure a Phase I area. * If naloxone or flumazenil are used for reversal, hold in Phase I for continued monitoring from when last reversal dose was given for a minimum of 60 minutes or longer pending the nurse and/or physician discretion of patient condition before discharge to Phase II. Please call the Sedation Physician to re-evaluate and complete post-note for discharge to Phase II area. Do NOT discharge from procedure sedation or Phase 1 until post- sedation evaluation note is complete by procedure /sedation MD Sedation Discharge Instructions to be given to the patient at discharge to home.
--- NOTE | 2018-11-26 15:00 | Cardiac Catheterization ---
Cardiac Cath Procedure Full Procedure Date November 26, 2018 Pre-Procedure Diagnosis Pre-Procedure Diagnosis: Non STEMI and Acute Coronary Syndrome AUC Score AUC Score: 9 Post-Procedure Diagnosis Post-Procedure Diagnosis: Severe CAD Procedure(s) Performed Procedure(s) Performed: Coronary Angiography and Left Heart Cath Supply Requirements Officer Lan Mock MD Electromechanical Assembly Technician(s) Alvaro Burrell Estimated Blood Loss Estimated Blood Loss: <15cc Medication(s) Medication(s): Fentanyl (12.5 mcg IV), Heparin (5000 units IV), Lidocaine 1% ( local infiltration access site), Nicardipine (250 mcg intra-arterial after arterial sheath inserted) and Versed (1 mg IV) Summary of Findings Indication: ACS Access: 6 Fr right radial artery Catheters: EBU 3.75 guide Findings: For full details of patient's coronary angiography please cath report dictated by Dr. Morrison. Briefly, patient found to have severe single vessel disease with a 99 % stenosis involving the mid circumflex with AGATHA II flow distally. Decision to proceed with PCI. -- PCI -- Antithrombotic therapy: Heparin, clopidogrel Procedure: Left main cannulated with EBU 3.75 guide BMW wire passed across lesion into distal vessel Mid circumflex lesion predilated with 3.0 compliant balloon Pro-water wire placed into large OM Dilated lesion stented with 4.0 x 18 mm Xience drug-eluting stent OM rewired with pro-water wire Stent post-dilated with 4.5 noncompliant balloon IC vasodilators administered for spasm Post procedure AGATHA 3 flow, stent well expanded with minimal residual stenosis and no apparent cardiac complications. Arterial Closure: TR band Summary: 1. Successful PCI of mid circumflex with single drug-eluting stent (4.0 x 18 mm Xience Carmen; postdilated with 4.5 NC). Recommendations: To PCU for continued monitoring Loaded with clopidogrel 600 mg in cath Continue dual-antiplatelet therapy for at least one year Continue statin, and ASCVD risk factor modification Consult cardiac Rehab Hemodynamics Rest Ao:: 105/56/80 Final Ao: 87/49/70 LV: -- Recommendations Recommendations: PCI without planned CABG Specimens Specimens: None Radiation Exposure (mGy) 3252 Contrast (mls) 142 Fluids (cc crystalloids) Fluids (cc crystalloids): 25 Drains Drains: None Anesthesia Moderate Procedural Complication(s) None Disposition PCU ACC Data: Desktop Support Consultant Cardiac Status Clinical evaluation leading to the procedure CAD Presenation: Non STEMI Anginal Classification: CCS IV Heart Failure: No Cardiogenic Shock within 24 Hours: No Cardiac Arrest within 24 Hours: No Imaging Studies Past 6 Months: Yes Stress Studies Past 6 Months: No Diagnostic Physicians Name: Lan Mock MD Status: Urgent Closure Device Percutaneous Entry Location: Radial Closure Device: Radial Band Recommendations: PCI without planned CABG PCI Indication: PCI for high risk Non-MAYCOL Lesion Segment Name: Mid circumflex Culprit Artery: Yes Stenosis Prior to Rx (%): 99 Chronic Total Occlusion: No IVUS: No FFR: No Pre-Procedure AGATHA Flow: 2 Previously Treated Lesion: No Lesion Complexity: Non-High/Non-C Lesion Length (mm): 12 Thrombus Present: Yes Bifurcation Lesion: Yes Guidewire Across Lesion: Stenosis Post-Procedure (%): 0 Post-Procedure AGATHA Flow: 3 Devices(s) Deployed: Yes Yes Intraprocedure Events Significant Disection: No Perforation: No
[2018-11-26] MEDS ORDERED: ACETAMINOPHEN 325 MG TAB PO PRN ×2 (15:06→15:21)
[2018-11-26] MEDS ORDERED: SODIUM CHLORIDE 0.9% 1000ML 1,000 ML IV SCH (15:15)
[2018-11-26] MEDS ORDERED: DEXTROSE 50% 50 ML SYRINGE IV PRN (15:21)
[2018-11-26] MEDS ORDERED: GLUCOSE 10 TABS/TUBE PO PRN (15:21)
[2018-11-26] MEDS ORDERED: POLYETHYLENE (MIRALAX) 17 GM PACK PO PRN (15:21)
[2018-11-26] MEDS ORDERED: ONDANSETRON INJ 2 MG/ML 2 ML VIAL IV PRN (15:21)
[2018-11-26] MEDS ORDERED: GLUCAGON FOR INJ 1 MG VIAL SQ PRN (15:21)
[2018-11-26] MEDS ORDERED: CARBOHYDRATES FOR HYPOGLYCEMIA PO PRN (15:21)
[2018-11-26] MEDS ORDERED: GLUCOSE 40% GEL 15 GM TUBE PO PRN (15:21)
[2018-11-26] MEDS ORDERED: NITROGLYCERIN SL 0.4 MG/TAB TAB SL PRN (15:21)
[2018-11-26] MEDS: SODIUM CHLORIDE 0.9% 1000ML 1,000 ML IV SCH ×2 (16:06→21:35)
[2018-11-26] MEDS: [UNRECOGNIZED DRUG - OTHER] SCH ×2 (16:06→23:13)
[2018-11-26] MEDS: INSULIN ASPART 100 UNITS/ML 3 ML PEN SC SCH ×2 (17:19→20:36)
[2018-11-26] MEDS ORDERED: DOXAZosin MESYLATE 4 MG TAB PO SCH (21:00)
[2018-11-26] MEDS ORDERED: FINASTERIDE 5 MG TAB PO SCH (21:00)
[2018-11-26] MEDS ORDERED: MONTELUKAST SODIUM 10 MG TABLET PO SCH (21:00)
[2018-11-26] MEDS ORDERED: ATORVASTATIN 10 MG TAB PO SCH (21:00)
[2018-11-27 06:39] LABS: Hematocrit (blood only) 39.4 % (42-52); Hemoglobin 13.8 g/dL (14.0-18.0); Mean Corpuscular Volume 90.6 fL (80-100); Mean Platelet Volume 9.6 fL (7.4-10.4); Platelet Count 140 K/uL (130-400); RDW Coefficient of Variation 13.2 % (11.5-14.5); RDW Standard Deviation 43.6 fL (36.4-46.3); Red Blood Count 4.35 M/uL (4.7-6.1); White Blood Count 5.46 K/uL (4.8-10.8)
[2018-11-27 07:10] LABS: BUN Creatinine Ratio 17.9 (10-20); Calcium 8.4 mg/dl (8.5-10.1); Creatinine Clr Calc Pharmacy 62.5 ml/min; Est GFR (African American) 76.7; Est GFR (Non-African American) 66.1; Potassium 3.5 mmol/L (3.5-5.1)
--- NOTE | 2018-11-27 07:56 | Hospitalist Progress Note ---
Date of Service November 27, 2018 Assessment & Plan (1) Non-ST elevation NV (NSTEMI): This is a 78-year-old male with a PMH of third-degree heart block s/p pacemaker placement on 11/05/18, known CAD (with 60% mid LAD stenosis by cardiac cath in 2011), HTN, HLD, h/o mitral valve repair, GERD, pulmonary fibrosis who presents with chest pain beginning early this morning and was found to have an NSTEMI and is s/p PCI to mid circumflex. -Presented with chest pain, EKG with new ST changes in lateral leads, troponin 0.149, echo revealed posterior wall severe hypokinesis at base and mid inferior wall with EF 45 to 50% -S/P Cath on 11/26/18- severe single-vessel CAD with 99% stenosis involving mid- circumflex -Continue dual antiplatelet therapyaspirin, Plavix x 1 year, Toprol-XL 50 mg, losartan 100 mg, increase atorvastatin to 20 mg nightly (Not able to tolerate it in past, so going up slowly). Lipid panel is pending (2) Third degree heart block: (3) Pacemaker: Pacemaker complication excluded upon arrival (4) HTN (hypertension): Stable -Continue HCTZ, Losartan and Toprol XL (5) Pulmonary fibrosis: Saturating at 94% on room air -Continue Anoro Ellipta inhaler, singulair (6) Diabetes mellitus, type II: A1c of 6.6 earlier in november 2018 -Hold home agents -SSI while in-patient -BSG HS (7) BPH (benign prostatic hyperplasia): -Continue doxazosin and finasteride (8) Dyslipidemia: Increased statin dose, to be continued at discharge DVT Ppx: SCDs for now Code status: FULL PCP: Pilgram Dispo: Medical mx in progress Plan to return home once medically stable. Subjective Patient is feeling well and eager to be discharged. No chest pain, shortness of breath, fever, chills, nausea, vomiting. Physical Exam Physical Exam: GENERAL- AAOX3, No acute distress LUNGS - Air entry bilaterally equal. No rales, rhonchi, crackles, wheezes heard. HEART - Regular rate and rhythm. No murmurs ABDOMEN - Soft, non tender, non distended, Bowel sounds heard. EXTREMITIES -S/P Right arm cardiac cath dressing; Good peripheral pulses, no edema Results & Data Vital Signs (Past 12 Hours) Vital Signs Temp Pulse Resp BP Pulse Ox 11/27/18 06:56 36.6 C 60 18 135/76 92 11/27/18 03:24 36.9 C 68 18 119/73 94 11/26/18 23:54 36.9 C 56 L 18 110/62 94 11/26/18 20:44 60 16 112/66 95
[2018-11-27] MEDS: [UNRECOGNIZED DRUG - OTHER] SCH (08:16)
[2018-11-27] MEDS: INSULIN ASPART 100 UNITS/ML 3 ML PEN SC SCH ×2 (08:23→13:00)
[2018-11-27] MEDS ORDERED: PANTOprazole 40 MG TAB PO SCH (09:00)
[2018-11-27] MEDS ORDERED: CYANOCOBALAMIN 500 MCG TABLET (VITAMIN B-12) PO SCH (09:00)
[2018-11-27] MEDS ORDERED: LOSARTAN POTASSIUM 50 MG TAB PO SCH (09:00)
[2018-11-27] MEDS ORDERED: ASPIRIN 81 MG ECTAB PO SCH ×2 (09:00)
[2018-11-27] MEDS ORDERED: ATORVASTATIN 40 MG TAB PO SCH ×2 (09:00)
[2018-11-27] MEDS ORDERED: CLOPIDOGREL BISULFATE 75 MG TAB PO SCH (09:00)
[2018-11-27] MEDS ORDERED: hydroCHLOROthiazide 25 MG TAB PO SCH (09:00)
[2018-11-27] MEDS ORDERED: METOPROLOL SUCC 50MG EXT REL TAB PO SCH (09:00)
[2018-11-27] MEDS ORDERED: AMLODIPINE BESYLATE 5 MG TAB PO SCH (09:00)
--- NOTE | 2018-11-27 10:16 | Cardiology Progress Note ---
Date of Service November 27, 2018 Assessment & Plan (1) Non-ST elevation VT (NSTEMI): Patient presented with signs and symptoms of acute coronary syndrome. Pacemaker complication excluded. Echocardiogram demonstrated new posterior lateral johnson and patient was referred for urgent diagnostic cardiac catheterization study demonstrating 90% or greater high-grade proximal stenosis of the dominant left circumflex. He is referred for coronary intervention Successful PCI of the proximal left circumflex with this being a very large dominant vessel. 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 Patient feels well this morning no chest pain or discomfort ambulatory in room. Right radial access healed well no bleeding issues. No dizziness or lightness no arrhythmias on telemetry. Review of Systems Review of Systems: As per HPI and otherwise negative Physical Exam Constitutional: WD/WN, vitals as above ENMT: Mallampati Class: II Neck: trachea midline, no thyromegaly Respiratory: normal respiratory effort, lungs clear to auscultation Cardiovascular: Rate/Rhythm: regular rate and regular rhythm Heart Sounds: + murmur (Grade 2/6); no gallop Vessels: radial pulses present (Radial access site healing well); no JVD Extremities: no edema Gastrointestinal (Abdomen): normal bowel sounds, soft, nontender, no hepatosplenomegaly Musculoskeletal: no cyanosis or clubbing, extremities motor strength 5/5 Results & Data Vital Signs (Past 12 Hours) Vital Signs Temp Pulse Resp BP Pulse Ox 11/27/18 06:56 36.6 C 60 18 135/76 92 11/27/18 03:24 36.9 C 68 18 119/73 94 11/26/18 23:54 36.9 C 56 L 18 110/62 94 Laboratory Results Laboratory Results - last 24 hr 11/26/18 11/26/18 11/26/18 09:50 14:16 15:35 WBC RBC Hgb Hct MCV MCH MCHC RDW Std Deviation RDW Coeff of Tyrell Plt Count MPV PT 10.6 INR 1.0 Activ Coag Time Kaolin 197 H Sodium Potassium Chloride Carbon Dioxide Anion Gap BUN Creatinine Est Cr Clr Drug Dosing Est GFR ( Amer) Est GFR (Non-Af Amer) BUN/Creatinine Ratio Glucose POC Glucose Calcium Troponin I 1.010 H* 11/26/18 11/26/18 11/26/18 16:19 20:31 21:49 WBC RBC Hgb Hct MCV MCH MCHC RDW Std Deviation RDW Coeff of Tyrell Plt Count MPV PT INR Activ Coag Time Kaolin Sodium Potassium Chloride Carbon Dioxide Anion Gap BUN Creatinine Est Cr Clr Drug Dosing Est GFR ( Amer) Est GFR (Non-Af Amer) BUN/Creatinine Ratio Glucose POC Glucose 108 H 110 H Calcium Troponin I 3.200 H* 11/27/18 11/27/18 11/27/18 06:26 06:26 07:34 WBC 5.46 RBC 4.35 L Hgb 13.8 L Hct 39.4 L MCV 90.6 MCH 31.7 MCHC 35.0 RDW Std Deviation 43.6 RDW Coeff of Tyrell 13.2 Plt Count 140 MPV 9.6 PT INR Activ Coag Time Kaolin Sodium 138 Potassium 3.5 Chloride 107 Carbon Dioxide 26 Anion Gap 5.0 BUN 19 H Creatinine 1.07 Est Cr Clr Drug Dosing 62.5 Est GFR ( Amer) 76.7 Est GFR (Non-Af Amer) 66.1 BUN/Creatinine Ratio 17.9 Glucose 109 H POC Glucose 115 H Calcium 8.4 L Troponin I
--- NOTE | 2018-11-27 11:26 | Discharge Summary ---
Date of Service November 27, 2018 Admission HPI Per Admitting Provider This is a 78-year-old male with a PMH of third-degree heart block s/p pacemaker placement on 11/05/18, known CAD (with 60% mid LAD stenosis by cardiac cath in 2011), HTN, HLD, h/o mitral valve repair, GERD, pulmonary fibrosis who presents with chest pain beginning early this morning. Patient was admitted at the beginning of November for near syncopal event and was found to have third-degree heart block and nonsustained V. tach. Underwent dual-chamber pacemaker placement by Dr. Hernandez during that admission. Has been feeling well up until early this morning, when he woke up at 0300 with severe left-sided chest pain that only lasted a minute or so but continued to have an aching pain for the next few hours until he was able to fall back asleep. Then awakened again with chest pain again that radiated down radiation to left arm and up to teeth. Not associated with diaphoresis, nausea or vomiting. No near syncope, lightheadedness or palpitations. Was brought in by EMS and took a full dose aspirin in route to hospital. Patient also noted that he had been experiencing a burning pain of epigastrium in the evenings for the past few nights that he assumed was acid reflux. Has been taking an gsso-[id number] antacid with relief of symptoms. Found to be hemodynamically stable with resolution of chest pain after NTG. EKG with new ST changes in lateral leads. Troponin elevated at 0.149. Dr. Morrison called to evaluate and stat echo was performed which revealed posterior wall severe hypokinesis at base as well as mid inferior wall hypokinesis. EF of 45- 50%. No evidence of mitral stenosis or insufficiency regarding mitral valve repair with annuloplasty ring. PM interrogation also ordered. Patient follows with Dr. Morrison and ELSI Latham in clinic. The patient notes that his last stress test was at [place] a year and a half ago. Principal Diagnosis 1. NSTEMI 2. S/P Cardiac cath - PCI - stent to Mid circumflex 3. Nonsustained V. tach Secondary diagnoses on discharge 1. Third-degree heart block status post pacemaker implantation 2. Hypertension 3. Pulmonary fibrosis 4. Diabetes mellitus type 2 5. BPH 6. Dyslipidemia 7. History of mitral valve repair Discharge Exam GENERAL- AAOX3, No acute distress LUNGS - Air entry bilaterally equal. No rales, rhonchi, crackles, wheezes heard. HEART - Regular rate and rhythm. Murmur + ABDOMEN - Soft, non tender, non distended, Bowel sounds heard. EXTREMITIES -S/P Right arm cardiac cath dressing; Good peripheral pulses, no edema Discharge Data Allergies Allergy/AdvReac Type Severity Reaction Status Date / Time pravastatin Allergy Severe MUSCLE, Verified 11/26/18 09:44 BODY ACHES Consultations 11/26/18 11:05 ED Decision to Admit Stat 11/26/18 15:08 Consult Cardiac Rehabilitation Routine 11/26/18 15:21 Consult Cardiology Routine Procedures Performed Operation Date: 11/26/18 13:15 Actual Procedures p Cath, Left w/Cors Vent Grafts - Kenji Morrison MD s Cineradiography w/Routine Exam(Not Applicable) - Andres Mock MD s Drug Eluting Stent SGl Vessel - Andres Mock MD Ordered Studies 11/26/18 13:11 CL Cath Imgs for PACS use only Stat Hospital Course (1) Non-ST elevation MA (NSTEMI): This is a 78-year-old male with a PMH of third-degree heart block s/p pacemaker placement on 11/05/18, known CAD (with 60% mid LAD stenosis by cardiac cath in 2011), HTN, HLD, h/o mitral valve repair, GERD, pulmonary fibrosis who presents with chest pain beginning early this morning and was found to have an NSTEMI and is s/p PCI to mid circumflex. -Presented with chest pain, EKG with new ST changes in lateral leads, troponin 0.149, echo revealed posterior wall severe hypokinesis at base and mid inferior wall with EF 45 to 50% -S/P Cath on 11/26/18- severe single-vessel CAD with 99% stenosis involving mid- circumflex -Continue dual antiplatelet therapyaspirin, Plavix x 1 year, Toprol-XL 50 mg, losartan 100 mg, increase atorvastatin to 20 mg nightly (Not able to tolerate it in past, so going up slowly). Lipid panel is pending (2) Non-sustained ventricular tachycardia: -Complex ventricular ectopy present but no ventricular tachycardia observed as per cardiology. (3) Third degree heart block: (4) Pacemaker: Pacemaker complication excluded upon arrival (5) HTN (hypertension): Stable -Continue HCTZ, Losartan and Toprol XL (6) Pulmonary fibrosis: Saturating at 94% on room air -Continue Anoro Ellipta inhaler, singulair (7) Diabetes mellitus, type II: A1c of 6.6 earlier in november 2018 -Hold home agents -SSI while in-patient -BSG HS (8) BPH (benign prostatic hyperplasia): -Continue doxazosin and finasteride (9) Dyslipidemia: Increased statin dose, to be continued at discharge DVT Ppx: SCDs for now Code status: FULL PCP: Liam Dispo: Medical mx in progress Plan to return home once medically stable. Total Time Total Time Spent Total Time Spent (In Minutes): 35 minutes Discharge Plan Discharge Items Patient Disposition: Home - Self-Care Reason For Visit: CHEST PAIN Discharge Diagnosis: NSTEMI Discharge Goals: Decrease discomfort and Improve disease control Activity: As commented below Activity Comment: Post cardiac cath instructions as given Non-emergency contact: Primary Care Provider and Bead Trimmer Call non-emergency contact if: your symptoms worsen Follow-up/Referrals: Brett Wheeler MD [Primary Care Provider] - 12/01/18 11:05 am Diet: Carb Consistent or DM2, Heart Healthy and Low Sodium (2gm) Addtl Provider Instructions: You were admitted to the hospital for non-ST segment elevation myocardial infarction/heart attack. You had a cardiac catheterization done with a stent placed in proximal left circumflex artery Medication changes 1. New medicationPlavix 75 mg daily. Need to take aspirin and Plavix for at least one year and then as per further directed by her primary care physician/cardiology. Do not stop taking these medications without instructed by your doctor 2. Increased dose of atorvastatin to 20 mg from 10 mg daily Prescriptions: New clopidogrel 75 mg Tablet 75 mg PO QAM 30 Days Qty: 30 RF: 0 nitroglycerin [Nitrostat] 0.4 mg Tablet, Sublingual 0.4 mg sublingual UD 30 Days Qty: 30 RF: 0 atorvastatin 20 mg tablet 20 mg PO HS 30 Days Qty: 30 RF: 0 Continued metformin 500 mg Tablet 500 mg PO BIDM RF: 0 cyanocobalamin (vitamin B-12) [Vitamin B-12] 1,000 mcg Tablet 1,000 mcg PO DAILY RF: 0 amlodipine 2.5 mg Tablet 2.5 mg PO DAILY RF: 0 aspirin [Aspir-81] 81 mg Tablet,Delayed Release (Dr/Ec) 81 mg PO DAILY RF: 0 doxazosin 8 mg Tablet 8 mg PO HS RF: 0 montelukast [Singulair] 10 mg Tablet 10 mg PO PM RF: 0 hydrochlorothiazide 25 mg Tablet 12.5 mg PO DAILY RF: 0 losartan 100 mg Tablet 100 mg PO DAILY RF: 0 finasteride 5 mg Tablet 5 mg PO QPM RF: 0 Anoro Ellipta 62.5-25 mcg/actuation Blister With Device 1 inh INHALATION DAILY RF: 0 metoprolol succinate 50 mg Tablet Extended Release 24 Hr 50 mg PO QAM 30 Days Qty: 30 RF: 0 Discontinued atorvastatin 10 mg Tablet 10 mg PO HS RF: 0 Stand-Alone Forms: Call Back Authorization, [facility] Discharge Orders: Discharge Order (Routine); Ordered 11/27/18 Ordered By: Nannette Moon Admission Data Admit Date/Time: 11/26/18 15:49 Attending Provider: Nannette Moon Admit Provider: Emanuel Barajas Primary Care Provider: Brett Wheeler Other Providers: Emanuel Barajas ; Kenji Morrison Service: Telemetry
[2018-11-27 11:56] LABS: Chol HDL Ratio 4; Cholesterol 143 mg/dl (0-200); HDL Cholesterol 38 mg/dl; LDL Cholesterol Calculated 73 mg/dl; Triglycerides 160 mg/dl (0-150); VLDL Cholesterol 32 mg/dl
== END 2018-11-27 13:13 | disposition home or self-care (01) | DRG 247 ==
LOC: ED 09:17 → CC 13:32 → 2S 13:32

== ENCOUNTER 2019-01-24 10:53 | Observation (INO) ==
[2019-01-24] MEDS ORDERED: BENZONATATE 100 MG CAPSULE PO ONE (12:07)
[2019-01-24] MEDS ORDERED: SODIUM CHLORIDE 0.9% 500 ML IV SCH (12:15)
[2019-01-24 12:17] LABS: Basophils # (auto) 0.01 K/uL (0-0.2); Basophils % (auto) 0.2 %; Hematocrit (blood only) 38.9 % (42-52); Hemoglobin 13.4 g/dL (14.0-18.0); Immature Granulocytes # (auto) 0.02 K/uL (0.00-0.02); Immature Granulocytes % (auto) 0.3 %; Lymphocytes # (auto) 0.68 K/uL (1.2-3.4); Lymphocytes % (auto) 10.9 %; Mean Corpuscular Hgb Conc 34.4 g/dL (32-36); Mean Corpuscular Volume 95.6 fL (80-100); Mean Platelet Volume 10.4 fL (7.4-10.4); Monocytes % (auto) 11.2 %; Neutrophils # (auto) 4.85 K/uL (1.4-6.5); Neutrophils % (auto) 77.4 %; Platelet Count 160 K/uL (130-400); RDW Coefficient of Variation 13.2 % (11.5-14.5); Red Blood Count 4.07 M/uL (4.7-6.1); White Blood Count 6.26 K/uL (4.8-10.8)
[2019-01-24 12:26] LABS: Albumin Level 3.1 gm/dl (3.4-5.0); BUN Creatinine Ratio 14.1 (10-20); Calcium 8.6 mg/dl (8.5-10.1); Est GFR (African American) 63.7; Est GFR (Non-African American) 54.9; Potassium 3.6 mmol/L (3.5-5.1)
[2019-01-24 12:29] LABS: INR 1.1 (0.9-1.1); Partial Thromboplastin Ratio 1.1; Partial Thromboplastin Time 28.7 Seconds (21.0-31.0); Prothrombin Time 10.9 Seconds (9.0-12.0)
[2019-01-24 12:36] LABS: Albumin Globulin Ratio 0.7 (0.9-2); Bilirubin,Total 0.9 mg/dl (0.2-1); Globulin 4.6 gm/dl (2.5-4.0); Total Protein 7.7 gm/dl (6.4-8.2); Troponin I 0.066 ng/ml (0-0.045)
--- NOTE | 2019-01-24 12:53 | XRay Report ---
XR chest 2V routine CLINICAL HISTORY: Dyspnea dyspnea. COMPARISON STUDY: 11/26/2018 FINDINGS: Conglomerate parenchymal changes in the upper lungs bilaterally. Similar but less prominent findings of both lung bases. Permanent cardiac pacemaker. 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 No acute process. Pacemaker lead position is good. The above report was generated using voice recognition software. It may contain grammatical, syntax or spelling errors. Electronically signed by: Jorden Tiwari M.D. 01/24/2019 12:52 PM
[2019-01-24] MEDS ORDERED: ASPIRIN CHEW 324 MG PO STA (13:07)
[2019-01-24] MEDS: LEVOFLOXACIN/D5W 750 MG/150 ML BAG IV SCH (13:23)
[2019-01-24 14:07] LABS: Influenza A virus by PCR Neg for Influ A (Neg); Influenza B virus by PCR Neg for Influ B (Neg)
--- NOTE | 2019-01-24 15:16 | History & Physical Report ---
Date of Service January 24, 2019 Assessment & Plan (1) Acute bronchitis: Acute bronchitis, possible mild COPD exacerbation Chest x-ray: No pneumonia Presently on room air with O2 sats more than 90% Start prednisone 40 mg p.o. daily, ceftriaxone IV 2 g IV daily, doxycycline 10 mg p.o. twice daily, albuterol/ipratropium every 6 hours Monitor response Continue usual Singulair and Anoro Ellipta Mild elevation of troponin Of CAD, stent placement No cardiac symptoms EKG no signs of acute infarct Obtain 2 more sets of troponins Monitor in telemetry unit Could ultimately secondary to demand ischemia from acute bronchitis Continue usual Plavix, aspirin, metoprolol XL, losartan Diabetes type 2 Usually on metformin, hold for now We will order insulin sliding scale Hypertension Stable, continue amlodipine and hydrochlorothiazide BPH Continue doxazosin and finasteride DVT prophylaxis Lovenox 40 mg subcutaneous daily Disposition Anticipate discharge to home medically stable Case discussed with patient and his at the bedside They are understanding, comfortable plan of care History of Present Illness 79-year-old male with history of COPD, CAD status post stent, diabetes, hypertension, BPH Presenting with cough and shortness of breath x3 days next Patient reports that he started coughing productive of yellowish sputum, associated with shortness of breath, started on Friday. He shares that he is has also been coughing for the past few days prior to that. Also reports intermittent chills, sweats.denies myalgias, arthralgias, headache, chest pain, abdominal pain. Persistence of symptoms prompted consult to the ER. Patient received in the ER hemodynamically stable. Afebrile. Chest x-ray showing no signs of active pneumonia Patient given Levaquin IV at the ER. On exam patient seen sitting up in bed, not in distress, comfortable. Reports persistent cough, productive of yellow sputum, no active shortness of breath while at rest. Denies chest pain, palpitations, dizziness, headache, nausea vomiting. No other symptoms Primary Care Provider: Brett Wheeler MD Allergies Allergy/AdvReac Type Severity Reaction Status Date / Time pravastatin Allergy Severe MUSCLE, Verified 01/24/19 11:47 BODY ACHES Home Medications Home Medications Medication Instructions Recorded Confirmed Type Anoro Ellipta 1 inh INHALATION DAILY 11/04/18 01/24/19 History amlodipine 2.5 mg PO DAILY 11/04/18 01/24/19 History aspirin [Aspir-81] 81 mg PO DAILY 11/04/18 01/24/19 History cyanocobalamin (vitamin B-12) 1,000 mcg PO DAILY 11/04/18 01/24/19 History [Vitamin B-12] doxazosin 8 mg PO HS 11/04/18 01/24/19 History finasteride 5 mg PO QPM 11/04/18 01/24/19 History hydrochlorothiazide 12.5 mg PO DAILY 11/04/18 01/24/19 History losartan 100 mg PO DAILY 11/04/18 01/24/19 History metformin 500 mg PO BIDM 11/04/18 01/24/19 History montelukast [Singulair] 10 mg PO PM 11/04/18 01/24/19 History clopidogrel 75 mg PO DAILY 01/24/19 01/24/19 History doxazosin 8 mg PO HS 01/24/19 01/24/19 History fluticasone propionate 1 spray INTRANASAL DAILY 01/24/19 01/24/19 History metoprolol succinate 50 mg PO DAILY 01/24/19 01/24/19 History montelukast 10 mg PO DAILY 01/24/19 01/24/19 History rosuvastatin 5 mg PO DAILY 01/24/19 01/24/19 History Past Med/Surg History Medical History Pacemaker (Chronic) Non-sustained ventricular tachycardia (Resolved) Third degree heart block (Chronic) s/p pacemaker placement on 11/05/18 HTN (hypertension) (Chronic) COPD, moderate (Chronic) RBBB (Chronic) BPH (benign prostatic hyperplasia) (Chronic) Dyslipidemia (Chronic) Pulmonary fibrosis (Chronic) CAD (coronary artery disease) (Chronic) "cath 10/2011 - 60% mid LAD stenosis" Valvular cardiomyopathy (Resolved) Surgical History H/O inguinal hernia repair (Chronic) History of total left hip replacement (Chronic) "and revision" 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" Family History Other No pertinent family history Social History Preferred Language: Gabonese Communication Ability: Effective Beliefs That Will Affect Care: None marital status: Current Living Situation: Spouse Feels Safe at Home: Yes Smoking Status: Former smoker Hx Alcohol Use: No Hx Substance Use: No Review of Systems Review of Systems: All systems reviewed & are unremarkable except as noted in HPI & below Physical Exam Physical Exam: General- oriented x 3, not in distress, speaks in sentences with no effort or accessory muscle use Head- atraumatic Eyes- PERRL, EOMI, anicteric ENT- oropharynx clear Neck- supple, no JVD, no adenopathy, no thyromegaly; carotids +2/2, no bruits appreciated Lungs-positive scattered mild rhonchi bilaterally, no wheezing, good air entry bilaterally Heart- normal rate, regular rhythm; no murmur, no gallop, no rub appreciated Abdomen- normal bowel sounds, nondistended, soft, nontender, no masses or hep atosplenomegaly Extremities- no pretibial edema, no calf tenderness; peripheral pulses intact Neuro- alert, oriented x 3; CN 2-12 grossly intact; motor 5/5 bilaterally;sensation 100% on all extremities; no other gross focal neurologic deficits Skin- warm & dry Results & Data Vital Signs (Past 12 Hours) Vital Signs Temp Pulse Pulse Resp BP BP Pulse Ox 01/24/19 14:36 36.9 C 74 18 108/68 93 01/24/19 13:00 71 22 122/74 93 01/24/19 12:30 70 15 125/73 93 01/24/19 12:11 72 18 128/76 94 01/24/19 12:10 95 01/24/19 12:00 94 01/24/19 11:15 37.1 C 77 20 106/67 93 Laboratory Results Laboratory Results - last 24 hr 01/24/19 01/24/19 01/24/19 11:50 11:50 11:50 WBC 6.26 RBC 4.07 L Hgb 13.4 L Hct 38.9 L MCV 95.6 MCH 32.9 MCHC 34.4 RDW Std Deviation 46.0 RDW Coeff of Tyrell 13.2 Plt Count 160 MPV 10.4 Immature Gran % (Auto) 0.3 Neut % (Auto) 77.4 Lymph % (Auto) 10.9 [place] % (Auto) 11.2 Eos % (Auto) 0.0 Baso % (Auto) 0.2 Immature Gran # (Auto) 0.02 Neut # (Auto) 4.85 Lymph # (Auto) 0.68 L [place] # (Auto) 0.70 H Eos # (Auto) 0.00 Baso # (Auto) 0.01 PT 10.9 INR 1.1 APTT 28.7 PTT Ratio 1.1 Sodium 139 Potassium 3.6 Chloride 103 Carbon Dioxide 28 Anion Gap 8.0 BUN 18 Creatinine 1.24 Est Cr Clr Drug Dosing 53.0 Est GFR ( Amer) 63.7 Est GFR (Non-Af Amer) 54.9 BUN/Creatinine Ratio 14.1 Glucose 148 H Calcium 8.6 Total Bilirubin 0.9 AST 21 ALT 24 Alkaline Phosphatase 54 Troponin I 0.066 H* Total Protein 7.7 Albumin 3.1 L Globulin 4.6 H Albumin/Globulin Ratio 0.7 L Influenza Type A (PCR) Influenza Type B (PCR) 01/24/19 12:30 WBC RBC Hgb Hct MCV MCH MCHC RDW Std Deviation RDW Coeff of Tyrell Plt Count MPV Immature Gran % (Auto) Neut % (Auto) Lymph % (Auto) [place] % (Auto) Eos % (Auto) Baso % (Auto) Immature Gran # (Auto) Neut # (Auto) Lymph # (Auto) [place] # (Auto) Eos # (Auto) Baso # (Auto) PT INR APTT PTT Ratio Sodium Potassium Chloride Carbon Dioxide Anion Gap BUN Creatinine Est Cr Clr Drug Dosing Est GFR ( Amer) Est GFR (Non-Af Amer) BUN/Creatinine Ratio Glucose Calcium Total Bilirubin AST ALT Alkaline Phosphatase Troponin I Total Protein Albumin Globulin Albumin/Globulin Ratio Influenza Type A (PCR) Neg for Influ A Influenza Type B (PCR) Neg for Influ B ECG Additional Comments: Heart rate 71, sinus rhythm, no signs of acute infarct or ischemia Code Status & VTE Plan Code Status Full code as per discussion with patient
[2019-01-24] MEDS ORDERED: predniSONE 20 MG TAB PO STA (16:52)
[2019-01-24] MEDS ORDERED: XOPENEX/ATROVENT 1.25mg/0.5MG NEB COMBO NEB SCH (16:52)
[2019-01-24] MEDS ORDERED: ACETAMINOPHEN 325 MG TAB PO PRN (16:52)
[2019-01-24] MEDS ORDERED: CARBOHYDRATES FOR HYPOGLYCEMIA PO PRN (17:08)
[2019-01-24] MEDS ORDERED: GLUCOSE 40% GEL 15 GM TUBE PO PRN (17:08)
[2019-01-24] MEDS ORDERED: DEXTROSE 50% 50 ML SYRINGE IV PRN (17:08)
[2019-01-24] MEDS ORDERED: GLUCAGON FOR INJ 1 MG VIAL SQ PRN (17:08)
[2019-01-24] MEDS ORDERED: GLUCOSE 10 TABS/TUBE PO PRN (17:08)
--- NOTE | 2019-01-24 17:13 | Emergency Department Note ---
Entered by Abigail Whitehead acting as a scribe for History of Present Illness General Chief complaint: Shortness of Breath/Dyspnea Stated complaint: SOB-FEET SWOLLEN-BLOOD OXYGEN LEVEL LOW Time Seen by Provider: 01/24/19 11:49 Source: patient Mode of arrival: ambulatory Limitations: no limitations History of Present Illness Provider complaint: Shortness of breath Onset (ago): day(s) 2 Location: chest Radiation: non-radiation Pain Consistency: + other (worsening) Quality: + other (shortness of breath) Associated symptoms: + cough (productive with greenish-yellow phlegm), + fever/chills (feeling hot/cold), + weakness and + other (Additional symptoms: congestion, ankle swelling. Denies: rhinorrhea, sore throat, urinary symptoms); no chest pain Treatments prior to arrival: none The patient is a 79 year old male with a history of COPD, VT, 3rd degree heart block, cardiomyopathy, a coronary stent, and a pacemaker who presents to the Emergency Room with complaints of worsening shortness of breath starting 2 days ago. The patient reports that he started feeling short of breath after developing a productive cough with greenish-yellow phlegm. He states that he has also been feeling weak, congested, and hot and cold, but he notes that he has not taken his temperature. His family adds that his ankles are swollen. The patient denies any rhinorrhea, sore throat, urinary symptoms, and chest pain. He reports that his last bowel movement was yesterday. Per family, the patient's currently in the ED with similar symptoms. Home Medications Home Medications Medication Instructions Recorded Confirmed Type Anoro Ellipta 1 inh INHALATION DAILY 11/04/18 01/24/19 History amlodipine 2.5 mg PO DAILY 11/04/18 01/24/19 History aspirin [Aspir-81] 81 mg PO DAILY 11/04/18 01/24/19 History cyanocobalamin (vitamin B-12) 1,000 mcg PO DAILY 11/04/18 01/24/19 History [Vitamin B-12] doxazosin 8 mg PO HS 11/04/18 01/24/19 History finasteride 5 mg PO QPM 11/04/18 01/24/19 History hydrochlorothiazide 12.5 mg PO DAILY 11/04/18 01/24/19 History losartan 100 mg PO DAILY 11/04/18 01/24/19 History metformin 500 mg PO BIDM 11/04/18 01/24/19 History montelukast [Singulair] 10 mg PO PM 11/04/18 01/24/19 History clopidogrel 75 mg PO DAILY 01/24/19 01/24/19 History doxazosin 8 mg PO HS 01/24/19 01/24/19 History fluticasone propionate 1 spray INTRANASAL DAILY 01/24/19 01/24/19 History metoprolol succinate 50 mg PO DAILY 01/24/19 01/24/19 History montelukast 10 mg PO DAILY 01/24/19 01/24/19 History rosuvastatin 5 mg PO DAILY 01/24/19 01/24/19 History Allergies Allergy/AdvReac Type Severity Reaction Status Date / Time pravastatin Allergy Severe MUSCLE, Verified 01/24/19 11:47 BODY ACHES Past Med/Surg History Medical History Diabetes mellitus, type II (Chronic) Non-ST elevation GA (NSTEMI) (Acute) Pacemaker (Chronic) Non-sustained ventricular tachycardia (Resolved) Third degree heart block (Chronic) s/p pacemaker placement on 11/05/18 HTN (hypertension) (Chronic) COPD, moderate (Chronic) RBBB (Chronic) BPH (benign prostatic hyperplasia) (Chronic) Dyslipidemia (Chronic) Pulmonary fibrosis (Chronic) CAD (coronary artery disease) (Chronic) "cath 10/2011 - 60% mid LAD stenosis" Valvular cardiomyopathy (Resolved) Surgical History S/P coronary artery stent placement (Resolved) H/O inguinal hernia repair (Chronic) History of total left hip replacement (Chronic) "and revision" 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 and A total of 10 systems reviewed and were otherwise negative Physical Exam Vital Signs Vital Signs - 24 hr 01/24/19 11:15 01/24/19 12:00 01/24/19 12:10 Temperature 37.1 C Temperature Source Oral Sepsis Recent Fever Within 48 Hours No Sepsis Action Taken by Nursing No Action Required Pulse Rate 77 Pulse Rate [Finger] Pulse Rate from SpO2 Sensor Respiratory Rate 20 Respiratory Effort / Characteristics Non-Labored Spontaneous Respiratory Depth Normal Blood Pressure 106/67 Blood Pressure [Left Arm] Blood Pressure Mean 80 Blood Pressure Mean [Left Arm] Pulse Oximetry 93 94 95 Oxygen Delivery Method Room Air Room Air Room Air 01/24/19 12:11 01/24/19 12:30 01/24/19 13:00 Temperature Temperature Source Sepsis Recent Fever Within 48 Hours Sepsis Action Taken by Nursing Pulse Rate 70 71 Pulse Rate [Finger] 72 Pulse Rate from SpO2 Sensor 70 73 Respiratory Rate 18 15 22 Respiratory Effort / Characteristics Respiratory Depth Normal Blood Pressure 125/73 122/74 Blood Pressure [Left Arm] 128/76 Blood Pressure Mean 90 90 Blood Pressure Mean [Left Arm] 93 Pulse Oximetry 94 93 93 Oxygen Delivery Method Room Air 01/24/19 14:36 Temperature 36.9 C Temperature Source Oral Sepsis Recent Fever Within 48 Hours Sepsis Action Taken by Nursing Pulse Rate Pulse Rate [Finger] 74 Pulse Rate from SpO2 Sensor Respiratory Rate 18 Respiratory Effort / Characteristics Respiratory Depth Normal Blood Pressure Blood Pressure [Left Arm] 108/68 Blood Pressure Mean Blood Pressure Mean [Left Arm] 81 Pulse Oximetry 93 Oxygen Delivery Method Room Air GENERAL: Sitting up in bed with hat on. Persistent dry cough, talking in full sentences. EYE EXAM: normal conjunctiva OROPHARYNX: no exudate, no erythema, lips, buccal mucosa, and tongue normal and mucous membranes are moist NECK: supple, no nuchal rigidity, no adenopathy, non-tender, no JVD. LUNGS: Reproducible bilateral lateral chest wall pain. Faint wheezing to the bilateral bases. HEART: no murmurs, S1 normal and S2 normal ABDOMEN: abdomen soft, non-tender, normo-active bowel sounds, no masses, no rebound or guarding. BACK: Back is symmetrical on inspection and there is no deformity, no midline tenderness, no CVA tenderness. SKIN: no rashes and no bruising UPPER EXTREMITIES: upper extremities are grossly normal. LOWER EXTREMITIES: Calves are equal bilaterally, faint edema around the ankle NEURO EXAM: Normal sensorium, cranial nerves II-XII grossly intact, normal speech, no gross weakness of arms, no gross weakness of legs. Course ED COURSE: Vital signs were reviewed and were normal. The patients medical record was reviewed The above diagnostic studies were performed and reviewed. ED treatments and interventions as stated above. 1203: The patient was evaluated in room C6. A complete history and physical examination was performed. The patient was in the ED on 11/26/18 and had a PCI mid cerc. 1303: Upon reevaluation, the patient is resting. I discussed my findings with the patient and he understands and agrees with the treatment plan. 1309: I reviewed the patient's case with Lb Brown, The patient will be evaluated for further management. Based on the patients age, coexisting illnesses, exam and lab findings the decision to treat as an inpatient was made. The patient remained stable while under my care. The patient will be evaluated for further management. Consultations Consultation #1: I reviewed the patient's case with Lb Brown, The patient will be evaluated for further management. Time: 13:09 Administered Medications Levofloxacin/Dextrose (Levaquin/D5w) 750 mg in 150 mls @ 100 mls/hr IV Q24H [facility] Stop: 01/26/19 13:14 Last Infusion: 01/24/19 14:55 Dose: 0 mls/hr Documented by: [id number] Admin: 01/24/19 13:23 Dose: 100 mls/hr Documented by: [id number] Discontinued Medications Aspirin (Aspirin) 324 mg PO NOW STA Stop: 01/24/19 13:08 Last Admin: 01/24/19 13:23 Dose: 324 mg Documented by: [id number] Benzonatate (Tessalon Perle) 100 mg PO NOW ONE Stop: 01/24/19 12:08 Last Admin: 01/24/19 12:27 Dose: 100 mg Documented by: [id number] Sodium Chloride (Nss) 500 mls @ 999 mls/hr IV .Q31M ALEX Stop: 01/24/19 12:45 Last Infusion: 01/24/19 13:13 Dose: 0 mls/hr Documented by: [id number] Admin: 01/24/19 12:28 Dose: 999 mls/hr Documented by: [id number] Medical Decision Making Differential Diagnosis Differential diagnosis: Etiologies such as infections, reactive airway disease, pneumonia, pneumothorax, COPD, CHF, cardiac ischemia, pulmonary embolism, musculoskeletal, ga strointestinal, as well as others were entertained. Medical Records Attestation: I reviewed the patient's medical records. Home Medications Current Medication List: was personally reviewed by me Laboratory Data Attestation: I reviewed the patient's lab results. Result diagrams: 01/24/19 11:50 01/24/19 11:50 Lab Results 01/24/19 01/24/19 01/24/19 Range/Units 11:50 11:50 11:50 WBC 6.26 (4.8-10.8) K/uL RBC 4.07 L (4.7-6.1) M/uL Hgb 13.4 L (14.0-18.0) g/dL Hct 38.9 L (42-52) % MCV 95.6 (80-100) fL MCH 32.9 (25-34) pg MCHC 34.4 (32-36) g/dL RDW Std Deviation 46.0 (36.4-46.3) fL RDW Coeff of Tyrell 13.2 (11.5-14.5) % Plt Count 160 (130-400) K/uL MPV 10.4 (7.4-10.4) fL Immature Gran % (Auto) 0.3 % Neut % (Auto) 77.4 % Lymph % (Auto) 10.9 % [place] % (Auto) 11.2 % Eos % (Auto) 0.0 % Baso % (Auto) 0.2 % Immature Gran # (Auto) 0.02 (0.00-0.02) K/uL Neut # (Auto) 4.85 (1.4-6.5) K/uL Lymph # (Auto) 0.68 L (1.2-3.4) K/uL [place] # (Auto) 0.70 H (0.11-0.59) K/uL Eos # (Auto) 0.00 (0-0.5) K/uL Baso # (Auto) 0.01 (0-0.2) K/uL PT 10.9 (9.0-12.0) Seconds INR 1.1 (0.9-1.1) APTT 28.7 (21.0-31.0) Seconds PTT Ratio 1.1 Sodium 139 (136-145) mmol/L Potassium 3.6 (3.5-5.1) mmol/L Chloride 103 (98-107) mmol/L Carbon Dioxide 28 (21-32) mmol/L Anion Gap 8.0 (3-11) BUN 18 (7-18) mg/dl Creatinine 1.24 (0.6-1.4) mg/dl Est Cr Clr Drug Dosing 53.0 ml/min Est GFR ( Amer) 63.7 Est GFR (Non-Af Amer) 54.9 BUN/Creatinine Ratio 14.1 (10-20) Glucose 148 H (70-99) mg/dl Calcium 8.6 (8.5-10.1) mg/dl Total Bilirubin 0.9 (0.2-1) mg/dl AST 21 (15-37) U/L ALT 24 (12-78) U/L Alkaline Phosphatase 54 (45-117) U/L Troponin I 0.066 H* (0-0.045) ng/ml Total Protein 7.7 (6.4-8.2) gm/dl Albumin 3.1 L (3.4-5.0) gm/dl Globulin 4.6 H (2.5-4.0) gm/dl Albumin/Globulin Ratio 0.7 L (0.9-2) Influenza Type A (PCR) (Neg) Influenza Type B (PCR) (Neg) 01/24/19 Range/Units 12:30 WBC (4.8-10.8) K/uL RBC (4.7-6.1) M/uL Hgb (14.0-18.0) g/dL Hct (42-52) % MCV (80-100) fL MCH (25-34) pg MCHC (32-36) g/dL RDW Std Deviation (36.4-46.3) fL RDW Coeff of Tyrell (11.5-14.5) % Plt Count (130-400) K/uL MPV (7.4-10.4) fL Immature Gran % (Auto) % Neut % (Auto) % Lymph % (Auto) % [place] % (Auto) % Eos % (Auto) % Baso % (Auto) % Immature Gran # (Auto) (0.00-0.02) K/uL Neut # (Auto) (1.4-6.5) K/uL Lymph # (Auto) (1.2-3.4) K/uL [place] # (Auto) (0.11-0.59) K/uL Eos # (Auto) (0-0.5) K/uL Baso # (Auto) (0-0.2) K/uL PT (9.0-12.0) Seconds INR (0.9-1.1) APTT (21.0-31.0) Seconds PTT Ratio Sodium (136-145) mmol/L Potassium (3.5-5.1) mmol/L Chloride (98-107) mmol/L Carbon Dioxide (21-32) mmol/L Anion Gap (3-11) BUN (7-18) mg/dl Creatinine (0.6-1.4) mg/dl Est Cr Clr Drug Dosing ml/min Est GFR ( Amer) Est GFR (Non-Af Amer) BUN/Creatinine Ratio (10-20) Glucose (70-99) mg/dl Calcium (8.5-10.1) mg/dl Total Bilirubin (0.2-1) mg/dl AST (15-37) U/L ALT (12-78) U/L Alkaline Phosphatase (45-117) U/L Troponin I (0-0.045) ng/ml Total Protein (6.4-8.2) gm/dl Albumin (3.4-5.0) gm/dl Globulin (2.5-4.0) gm/dl Albumin/Globulin Ratio (0.9-2) Influenza Type A (PCR) Neg for Influ A (Neg) Influenza Type B (PCR) Neg for Influ B (Neg) Imaging Data Radiologist's Impression: Radiology results as stated below per my review and the radiologist's interpretation: XR chest 2V routine CLINICAL HISTORY: Dyspnea dyspnea. COMPARISON STUDY: 11/26/2018 FINDINGS: Conglomerate parenchymal changes in the upper lungs bilaterally. Similar but less prominent findings of both lung bases. Permanent cardiac pacemaker. 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 No acute process. Pacemaker lead position is good. The above report was generated using voice recognition software. It may contain grammatical, syntax or spelling errors. Electronically signed by: Jorden Tiwari M.D. 01/24/2019 12:52 PM ECG Data Attestation: I personally reviewed and interpreted this ECG as follows: Indication: SOB/dyspnea Rate (beats per minute): 71 Rhythm: normal sinus Findings: + nonspecific-ST abn (septal leads), + RBBB and + left axis deviation Comparison ECG Date: from (11/27/18) Change: the following changes noted (Previous EKG is paced. The RBBB is old, and the axis is unchanged.) Blood Pressure Blood Pressure Findings: Normal blood pressure MDM Narrative Patient is a 79-year-old male who presents the ER with a significant past medical history of DVT, CAD, third-degree heart block and COPD the presents the ER for persistent cough, congestion associate with shortness of breath and some chest pain. He has had chest pain is present with coughing. Vitals show that he is just borderline hypoxic at 90 to 92%. He is afebrile. Labs show no signi ficant leukocytosis or anemia. BMP was unremarkable. LFTs bilirubin were normal. Troponin was elevated at 0.066. His EKG was unchanged from his previous. Influenza was negative. Chest x-ray shows some consolidation but does appear to be consistent with previous. Do favor that this most consistent with a bronchitis causing strain on the heart and a slightly elevated troponin secondary to demand ischemia. Patient was given IV fluids and IV antibiotics. He was updated bedside. He was admitted to the hospital for further work-up. Impression & Plan Bronchitis, Shortness of breath, Chest pain, Elevated troponin Discharge Plan Visit Data *Final* Discharge Date/Time: 01/24/19 15:59 Chief Complaint: Shortness of Breath/Dyspnea Stated Complaint: SOB-FEET SWOLLEN-BLOOD OXYGEN LEVEL LOW ED Provider: Lior Robbins Discharge Problem: Bronchitis, Shortness of breath, Chest pain, Elevated troponin Patient Disposition: Admitted As Inpatient Discharge Instructions Interventions: ED Discharge Assessment Last Done: 01/24/19 15:59 Discharge Problem: Chest pain Qualifiers: Chest pain type: unspecified Qualified Code(s): R07.9 - Chest pain, unspecified The scribe's documentation has been prepared under my direction and personally reviewed by me in its entirety. I confirm that the note above accurately ref lects all work, treatment, procedures, and medical decision making performed by me.
[2019-01-24] MEDS: IPRATROPIUM BROMIDE NEB SOLN 0.02% 2.5 ML VIAL INH SCH (17:49)
[2019-01-24] MEDS: LEVALBUTEROL 1.25MG/0.5ML NEB INH SCH (17:49)
[2019-01-24] MEDS ORDERED: cefTRIAXone SODIUM 2,000 MG in DEXTROSE 5% 50 ML IV SCH (18:00)
[2019-01-24 20:41] LABS: Appearance Urine Clear (Clear); Bilirubin Urine Negative (Negative); Blood Urine Negative (Negative); Color Urine Yellow; Glucose Urine UA Negative (Negative); Ketones Urine Trace (Negative); Leukocyte Esterase Urine Negative (Negative); Nitrite Urine Negative (Negative); Protein Urine Negative (Negative); Urobilinogen Urine Negative (Negative)
[2019-01-24] MEDS ORDERED: MONTELUKAST SODIUM 10 MG TABLET PO SCH (21:00)
[2019-01-24] MEDS ORDERED: DOXAZosin MESYLATE 4 MG TAB PO SCH ×2 (21:00)
[2019-01-24] MEDS ORDERED: FINASTERIDE 5 MG TAB PO SCH (21:00)
[2019-01-24] MEDS: INSULIN ASPART 100 UNITS/ML 3 ML PEN SC SCH (21:06)
[2019-01-25] MEDS: IPRATROPIUM BROMIDE NEB SOLN 0.02% 2.5 ML VIAL INH SCH ×4 (02:10→13:45)
[2019-01-25] MEDS: LEVALBUTEROL 1.25MG/0.5ML NEB INH SCH ×4 (02:10→13:45)
[2019-01-25] MEDS: INSULIN ASPART 100 UNITS/ML 3 ML PEN SC SCH ×2 (08:56→11:57)
[2019-01-25] MEDS ORDERED: ROSUVASTATIN CALCIUM 5 MG TAB PO SCH (09:00)
[2019-01-25] MEDS ORDERED: FLUTICASONE PROPIONATE NA SPR 16 GM BTL SCH (09:00)
[2019-01-25] MEDS ORDERED: METOPROLOL SUCC 50MG EXT REL TAB PO SCH (09:00)
[2019-01-25] MEDS ORDERED: ASPIRIN 81 MG ECTAB PO SCH (09:00)
[2019-01-25] MEDS ORDERED: LOSARTAN POTASSIUM 50 MG TAB PO SCH (09:00)
[2019-01-25] MEDS ORDERED: ENOXAPARIN INJ 40 MG/0.4 ML SYR SQ SCH (09:00)
[2019-01-25] MEDS ORDERED: CLOPIDOGREL BISULFATE 75 MG TAB PO SCH (09:00)
[2019-01-25] MEDS ORDERED: hydroCHLOROthiazide 25 MG TAB PO SCH (09:00)
[2019-01-25] MEDS ORDERED: MONTELUKAST SODIUM 10 MG TABLET PO SCH (09:00)
[2019-01-25] MEDS ORDERED: AMLODIPINE BESYLATE 5 MG TAB PO SCH (09:00)
[2019-01-25] MEDS ORDERED: DOXYCYCLINE HYCLATE 100 MG CAP PO SCH (09:00)
[2019-01-25] MEDS ORDERED: CYANOCOBALAMIN 500 MCG TABLET (VITAMIN B-12) PO SCH (09:00)
--- NOTE | 2019-01-25 13:08 | Hospitalist Progress Note ---
Date of Service January 25, 2019 Assessment & Plan (1) Acute bronchitis: Acute bronchitis, possible mild COPD exacerbation on room air with O2 sats more than 90% Positive bilateral rhonchi on exam Chest x-ray: No pneumonia Given prednisone 40 mg p.o. daily, ceftriaxone IV 2 g IV daily, doxycycline 100 mg p.o. twice daily, albuterol/ipratropium every 6 hours Improved on hospital day #2 Remains on room air, with good O2 sats Coughing and rhonchi less Discharge plan: Prednisone 30 mg x 2 days, 20 mg x 2 days, 10 mg x 2 days and 5 mg x 2 days then stop Continue doxycycline 100 mg twice a day x7 days Continue nebs every 6 hours at home, every 4 hours as needed for shortness of breath or wheezing Follow-up with primary care physician this week Mild elevation of troponin Of CAD, stent placement No cardiac symptoms EKG no signs of acute infarct Troponin 0 0.06 improved to 0.01 EKG no signs of acute ischemia or infarct Echocardiogram: Pending Mild troponin elevation likely secondary to demand ischemia from acute bronchitis Continue usual Plavix, aspirin, metoprolol XL, losartan Diabetes type 2 Resume metformin Hypertension Stable, continue amlodipine and hydrochlorothiazide BPH Continue doxazosin and finasteride DVT prophylaxis Lovenox 40 mg subcutaneous daily Disposition Discharge to home Follow-up with primary care physician, Dr. Baker on January at 11:05 AM Subjective ff up for Acute Bronchitis seen resting in bedside chair, comfortable, not in distress, In good spirits States he feels better today, less cough, and sputum, no shortness of breath No chest pain, dizziness, palpitations, nausea Denies fevers or chills States he is better and would like to be discharged today possible Review of Systems Review of Systems: All systems reviewed & are unremarkable except as noted in HPI & below Physical Exam Physical Exam: General- oriented x 3, not in distress, speaks in sentences with no effort or accessory muscle use Eyes- anicteric Neck- no JVD Lungs-very faint rhonchi at the bases, no wheezing, good air entry bilaterally, much improved compared to yesterday Heart- normal rate, regular rhythm; no murmurs Abdomen- normal bowel sounds, nondistended, soft, nontender Extremities-trace pedal edema, no calf tenderness Neuro- alert, oriented x 3; no gross focal neurologic deficits Skin- warm & dry Results & Data Vital Signs (Past 12 Hours) Vital Signs Temp Pulse Resp BP Pulse Ox 01/25/19 12:26 36.6 C 80 19 110/67 93 01/25/19 07:29 36.5 C 79 19 102/47 L 94 01/25/19 07:02 78 18 92 01/25/19 04:36 36.5 C 72 20 107/62 93 01/25/19 01:45 72 18 94 Laboratory Results Laboratory Results - last 24 hr 01/24/19 01/24/19 01/24/19 12:30 17:15 17:35 POC Glucose 112 H Troponin I 0.053 H* Urine Color Urine Appearance Urine pH Ur Specific [place] Urine Protein Urine Glucose (UA) Urine Ketones Urine Blood Urine Nitrite Urine Bilirubin Urine Urobilinogen Ur Leukocyte Esterase Influenza Type A (PCR) Neg for Influ A Influenza Type B (PCR) Neg for Influ B 01/24/19 01/24/19 01/25/19 20:07 20:22 00:06 POC Glucose 140 H Troponin I 0.018 Urine Color Yellow Urine Appearance Clear Urine pH 5.0 Ur Specific [place] 1.020 Urine Protein Negative Urine Glucose (UA) Negative Urine Ketones Trace H Urine Blood Negative Urine Nitrite Negative Urine Bilirubin Negative Urine Urobilinogen Negative Ur Leukocyte Esterase Negative Influenza Type A (PCR) Influenza Type B (PCR) 01/25/19 01/25/19 07:52 11:31 POC Glucose 201 H 241 H Troponin I Urine Color Urine Appearance Urine pH Ur Specific [place] Urine Protein Urine Glucose (UA) Urine Ketones Urine Blood Urine Nitrite Urine Bilirubin Urine Urobilinogen Ur Leukocyte Esterase Influenza Type A (PCR) Influenza Type B (PCR)
[2019-01-25] MEDS ORDERED: predniSONE 20 MG TAB PO SCH (13:15)
--- NOTE | 2019-01-25 13:36 | Discharge Summary ---
Date of Service January 25, 2019 Admission HPI Per Admitting Provider 79-year-old male with history of COPD, CAD status post stent, diabetes, hypertension, BPH Presenting with cough and shortness of breath x3 days next Patient reports that he started coughing productive of yellowish sputum, associated with shortness of breath, started on Friday. He shares that he is has also been coughing for the past few days prior to that. Also reports intermittent chills, sweats.denies myalgias, arthralgias, headache, chest pain, abdominal pain. Persistence of symptoms prompted consult to the ER. Patient received in the ER hemodynamically stable. Afebrile. Chest x-ray showing no signs of active pneumonia Patient given Levaquin IV at the ER. On exam patient seen sitting up in bed, not in distress, comfortable. Reports persistent cough, productive of yellow sputum, no active shortness of breath while at rest. Denies chest pain, palpitations, dizziness, headache, nausea vomiting. No other symptoms Admission Exam Per Admitting Provider General- oriented x 3, not in distress, speaks in sentences with no effort or accessory muscle use Head- atraumatic Eyes- PERRL, EOMI, anicteric ENT- oropharynx clear Neck- supple, no JVD, no adenopathy, no thyromegaly; carotids +2/2, no bruits appreciated Lungs-positive scattered mild rhonchi bilaterally, no wheezing, good air entry bilaterally Heart- normal rate, regular rhythm; no murmur, no gallop, no rub appreciated Abdomen- normal bowel sounds, nondistended, soft, nontender, no masses or hepatosplenomegaly Extremities- no pretibial edema, no calf tenderness; peripheral pulses intact Neuro- alert, oriented x 3; CN 2-12 grossly intact; motor 5/5 bilaterally;sensation 100% on all extremities; no other gross focal neurologic deficits Skin- warm & dry Principal Diagnosis ACUTE BRONCHITIS, MILD COPD EXACERBATION Discharge Exam General- oriented x 3, not in distress, speaks in sentences with no effort or accessory muscle use Eyes- anicteric Neck- no JVD Lungs-very faint rhonchi at the bases, no wheezing, good air entry bilaterally, much improved compared to yesterday Heart- normal rate, regular rhythm; no murmurs Abdomen- normal bowel sounds, nondistended, soft, nontender Extremities-trace pedal edema, no calf tenderness Neuro- alert, oriented x 3; no gross focal neurologic deficits Skin- warm & dry Discharge Data Allergies Allergy/AdvReac Type Severity Reaction Status Date / Time pravastatin Allergy Severe MUSCLE, Verified 01/24/19 11:47 BODY ACHES Consultations 01/24/19 13:11 ED Decision to Admit Stat Procedures Performed XR chest 2V routine CLINICAL HISTORY: Dyspnea dyspnea. COMPARISON STUDY: 11/26/2018 FINDINGS: Conglomerate parenchymal changes in the upper lungs bilaterally. Similar but less prominent findings of both lung bases. Permanent cardiac pacemaker. 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 No acute process. Pacemaker lead position is good. Hospital Course (1) Acute bronchitis: Acute bronchitis, possible mild COPD exacerbation on room air with O2 sats more than 90% Positive bilateral rhonchi on exam Chest x-ray: No pneumonia Given prednisone 40 mg p.o. daily, ceftriaxone IV 2 g IV daily, doxycycline 100 mg p.o. twice daily, albuterol/ipratropium every 6 hours Improved on hospital day #2 Remains on room air, with good O2 sats Coughing and rhonchi less Discharge plan: Prednisone 30 mg x 2 days, 20 mg x 2 days, 10 mg x 2 days and 5 mg x 2 days then stop Continue doxycycline 100 mg twice a day x 6 more days Continue nebs every 6 hours at home, every 4 hours as needed for shortness of breath or wheezing Follow-up with primary care physician this week Mild elevation of troponin Hx Of CAD, stent placement No cardiac symptoms EKG no signs of acute infarct Troponin 0 0.06 improved to 0.01 EKG no signs of acute ischemia or infarct Echocardiogram: Pending Mild troponin elevation likely secondary to demand ischemia from acute bronchitis Continue usual Plavix, aspirin, metoprolol XL, losartan Diabetes type 2 Resume metformin Hypertension Stable, continue amlodipine and hydrochlorothiazide BPH Continue doxazosin and finasteride DVT prophylaxis Lovenox 40 mg subcutaneous daily Disposition Discharge to home Follow-up with primary care physician, Dr. Baker on January at 11:05 AM Total Time Total Time Spent Total Time Spent (In Minutes): 40 minutes Discharge Plan Discharge Items Patient Disposition: Home - Self-Care Reason For Visit: ACUTE BRONCHITIS Discharge Diagnosis: Acute bronchitis, Mild COPD exacerbation Discharge Goals: Diagnostic testing and Therapeutic intervention Activity: As commented below Activity Comment: No heavy exertion until reevaluated by primary care physician Lifting: Wait until after follow-up appointment Exercise/Sports: Wait until after follow-up appointment Driving/Machine Use Comment: No driving until reevaluated by primary care physician Non-emergency contact: Primary Care Provider Call non-emergency contact if: you have any medication questions, your symptoms worsen and you have a fever Follow-up/Referrals: Brett Wheeler MD [Primary Care Provider] - 01/28/19 11:05 am Diet: Carb Consistent or DM2 and Heart Healthy Addtl Provider Instructions: Please review new medication list and follow instructions carefully. Include yogurt and probiotic in your daily diet, while taking antibiotics and at least 1 week after. Drink plenty fluids. Call primary care physician or return to the ER immediately if with worsening of symptoms, including increasing cough, sputum, fevers or chills, weakness. Prescriptions: New doxycycline hyclate 100 mg Capsule 100 mg PO BID 6 Days Qty: 12 RF: 0 ipratropium bromide 0.02 % Solution 0.5 mg inhalation TID 10 Days Qty: 120 RF: 1 levalbuterol HCl 1.25 mg/0.5 mL Solution For Nebulization 1.25 mg inhalation TID 10 Days Qty: 15 RF: 1 prednisone 10 mg tablet 10 mg PO UD Qty: 13 RF: 0 levalbuterol HCl 1.25 mg/0.5 mL solution for nebulization 1.25 mg INH TID Qty: 120 RF: 1 Continued metformin 500 mg Tablet 500 mg PO BIDM RF: 0 cyanocobalamin (vitamin B-12) [Vitamin B-12] 1,000 mcg Tablet 1,000 mcg PO DAILY RF: 0 amlodipine 2.5 mg Tablet 2.5 mg PO DAILY RF: 0 aspirin [Aspir-81] 81 mg Tablet,Delayed Release (Dr/Ec) 81 mg PO DAILY RF: 0 doxazosin 8 mg Tablet 8 mg PO HS RF: 0 hydrochlorothiazide 25 mg Tablet 12.5 mg PO DAILY RF: 0 losartan 100 mg Tablet 100 mg PO DAILY RF: 0 finasteride 5 mg Tablet 5 mg PO QPM RF: 0 Anoro Ellipta 62.5-25 mcg/actuation Blister With Device 1 inh INHALATION DAILY RF: 0 metoprolol succinate 50 mg Tablet Extended Release 24 Hr 50 mg PO DAILY RF: 0 clopidogrel 75 mg Tablet 75 mg PO DAILY RF: 0 montelukast 10 mg tablet 10 mg PO DAILY RF: 0 fluticasone propionate 50 mcg/actuation [place],Suspension 1 spray INTRANASAL DAILY RF: 0 rosuvastatin 5 mg tablet 5 mg PO DAILY RF: 0 Stand-Alone Forms: [facility] Discharge Orders: Discharge Order (Routine); Ordered 01/25/19 Ordered By: Rodrigo Thurman Admission Data Admit Date/Time: 01/24/19 15:28 Attending Provider: Rodrigo Thurman Admit Provider: Rodrigo Thurman Primary Care Provider: Brett Wheeler Other Providers: Rodrigo Thurman Service: Telemetry Medical Other Interventions: Discharge Summary Assessment (RN) Last Done: 01/25/19 13:42 DC Date/Time DO NOT enter until pt leaves facility: 01/25/19 16:18
[2019-01-25] MEDS: LEVOFLOXACIN/D5W 750 MG/150 ML BAG IV SCH (14:02)
== END 2019-01-25 16:18 | disposition home or self-care (01) ==
LOC: ED 10:53 → 2W 10:53

== ENCOUNTER 2022-10-25 16:34 | Inpatient (IN) ==
--- NOTE | 2022-10-25 18:23 | Emergency Department Note ---
Impression & Plan Acute dyspnea, Elevated brain natriuretic peptide (BNP) level, Acute CHF (congestive heart failure) ED Provider Note HISTORY OF PRESENT ILLNESS: Patient is a 82-year-old male presenting with shortness of breath and lower extremity weakness. Patient reports that he has been having progressively worsening shortness of breath over the last 2 to 3 weeks. He reports he is significantly short of breath with any sort of exertion. He reports he is also been having progressively worsening lower extremity weakness and swelling over that timeframe. Denies any chest pain. He is on a daily diuretic and reports has been taking it as prescribed. Denies any recent cough or fevers. Denies any abdominal pain. Denies any nausea or vomiting. Denies any recent exposure to sick contacts. Denies any DVT or PE history. ROS: as above PHYSICAL EXAM: Constitutional: Patient appears in no acute distress. HENT: Head: Normocephalic and atraumatic. Eyes: EOMI, PERRL Mouth/Throat: Mucous membranes moist. Neck: Trachea midline. Neck supple. Cardiovascular: RRR, No murmurs, rubs or gallops. Intact distal pulses. Pulmonary/Chest: Breath sounds clear and equal bilaterally. Patient is tachypneic Abdominal: BS +. Abdomen soft, no tenderness, rebound or guarding. Musculoskeletal: No tenderness or deformity noted. +2 pitting edema of bilateral lower extremities extending to mid-tibia. Skin: Warm and dry. No rash, erythema, pallor or cyanosis Psychiatric: Appropriate mood and affect for situation. Neurological: Alert and keenly responsive. CN II-XII grossly intact, moving all extremities equally and fully. MDM: - Vitals signs showed tachypnea. - History obtained via patient. Patient presents with shortness of breath. Patient reports progressively worsening shortness of breath over the last few weeks. He reports significant shortness of breath with any sort of exertion. He reports his lower legs have also felt very weak in that timeframe. Denies any chest pain. - Chronic conditions affecting care: CAD; CHF; DM-2; HTN; HLD - Differential diagnoses include, but are not limited to: Congestive heart failure; acute coronary syndrome; COPD/asthma exacerbation; pulmonary edema; pulmonary embolism; pneumonia; pneumothorax; viral syndrome - Order placed for continuous cardiac monitoring. At this time, monitor showed rate of 69 bpm with normal sinus rhythm, per my interpretation. - External medical records reviewed. - EKG reviewed by myself showed normal sinus rhythm with frequent PVCs. Noted to have a right bundle branch block. Rate 77 bpm. QTc 522 no acute ischemic changes - Laboratory workup interpreted by myself showed slight leukopenia (WBC 4.6); slight hyponatremia (Na 131); normal creatinine; normal troponin; elevated BNP (817) - CXR shows cardiomegaly and small pleural effusions, per my interpretation. - Patient given 80 mg IV lasix in ER. - Given patient's shortness of breath and secondary findings of CHF exacerbation (leg swelling), will admit for IV diuresis. - Discussion was had with social work instructor about patient's case and need for admission - Hospitalist, Dr. Palomino, consulted for admission. - Patient admitted to [facility] for further evaluation and management. ASSESSMENT AND PLAN: Diagnosis: dyspnea; acute CHF exacerbation; elevated BNP Plan: admit Past Med/Surg History Medical History (Updated 10/25/22 @ 20:22 by Rula Vilchis MD) BPH (benign prostatic hyperplasia) CAD (coronary artery disease) "cath 10/2011 - 60% mid LAD stenosis" COPD, moderate Diabetes mellitus, type II Dyslipidemia HTN (hypertension) Non-ST elevation IN (NSTEMI) Non-sustained ventricular tachycardia Pacemaker Pulmonary fibrosis RBBB Third degree heart block s/p pacemaker placement on 11/05/18 Valvular cardiomyopathy Surgical History (Updated 01/24/19 @ 15:32 by Abigail Whitehead) H/O inguinal hernia repair History of total left hip replacement "and revision" Hx of mitral valve repair "for myxomatous valve" S/P coronary artery stent placement Family History Other No pertinent family history Social History Smoking Status: Former smoker Second Hand Exposure: No; Hx Alcohol Use: No Hx Substance Use: No Preferred Language: Lithuanian Communication Ability: Effective Hoop Coiler Required: No Beliefs That Will Affect Care: None marital status: Current Living Situation: Spouse Feels Safe at Home: Yes Assistive Devices: Glasses Allergies Allergies Allergy/AdvReac Type Severity Reaction Status Date / Time pravastatin [From Pravachol] AdvReac Intermediate Muscle Pain Verified 10/25/22 19:00 Home Meds Home Medications Medication Instructions Recorded Confirmed amlodipine 2.5 mg tablet 2.5 mg PO DAILY 11/04/18 10/25/22 cyanocobalamin (vitamin B-12) 1,000 mcg PO DAILY 11/04/18 10/25/22 1,000 mcg tablet (Vitamin B-12) doxazosin 8 mg tablet 8 mg PO HS 11/04/18 10/25/22 finasteride 5 mg tablet 5 mg PO QAM 11/04/18 10/25/22 hydrochlorothiazide 25 mg tablet 12.5 mg PO DAILY 11/04/18 10/25/22 losartan 100 mg tablet 100 mg PO DAILY 11/04/18 10/25/22 metformin 500 mg tablet 500 mg PO BIDM 11/04/18 10/25/22 umeclidinium 62.5 mcg-vilanterol 1 inh inhalation QAM 11/04/18 10/25/22 25 mcg/actuation powdr for inhalation (Anoro Ellipta) fluticasone propionate 50 2 spray intranasal DAILY 01/24/19 10/25/22 mcg/actuation nasal spray,suspension metoprolol succinate 50 mg 50 mg PO BID 01/24/19 10/25/22 tablet,extended release 24 hr rosuvastatin 5 mg tablet 5 mg PO HS 01/24/19 10/25/22 acetaminophen 500 mg tablet 500 - 1,000 mg PO Q6H PRN Pain 10/25/22 10/25/22 (Tylenol Extra Strength) amoxicillin 500 mg capsule 2,000 mg PO DIRECTED PRN 1 HOUR 10/25/22 10/25/22 PRIOR TO DENTAL APPT. ascorbic acid (vitamin C) 500 mg 500 mg PO DAILY 10/25/22 10/25/22 tablet (Vitamin C) aspirin 81 mg tablet,delayed 81 mg PO DAILY 10/25/22 10/25/22 release cholecalciferol (vitamin D3) 25 25 mcg PO DAILY 10/25/22 10/25/22 mcg (1,000 unit) capsule (Vitamin D3) ezetimibe 10 mg tablet (Zetia) 10 mg PO DAILY 10/25/22 10/25/22 ipratropium bromide 0.02 % 2.5 ml inhalation TID PRN Wheezing 10/25/22 10/25/22 solution for inhalation levalbuterol HCl 1.25 mg/0.5 mL 1.25 mg inhalation TID PRN 10/25/22 10/25/22 solution for nebulization Shortness Of Breath Or Wheezing nitroglycerin 0.4 mg sublingual 0.4 mg sublingual DIRECTED PRN 10/25/22 10/25/22 tablet (Nitrostat) Chest Pain Results & Data (ED) Vital Signs Vital Signs - 24 hr 10/25/22 16:38 10/25/22 17:06 10/25/22 18:06 Temperature 36.3 C L Temperature Source Temporal Artery Scan Pulse Rate 82 73 Respiratory Rate 30 H Respiratory Effort / Characteristics Labored Respiratory Depth Normal Respiratory Pattern Regular Blood Pressure 125/71 Blood Pressure Mean 89 Blood Pressure Position Sitting Pulse Oximetry 94 Oxygen Delivery Method Room Air Room Air Sepsis Recent Fever Within 48 Hours No Sepsis New/Unexplained Change in Mental Status No Sepsis Action Taken by Nursing No Action Required 10/25/22 18:12 Temperature Temperature Source Pulse Rate Respiratory Rate Respiratory Effort / Characteristics Respiratory Depth Respiratory Pattern Blood Pressure Blood Pressure Mean Blood Pressure Position Pulse Oximetry Oxygen Delivery Method Room Air Sepsis Recent Fever Within 48 Hours Sepsis New/Unexplained Change in Mental Status Sepsis Action Taken by Nursing Laboratory Data 10/25/22 17:13 10/25/22 17:13 Lab Results 10/25/22 10/25/22 10/25/22 Range/Units 17:13 17:13 17:13 WBC 4.66 L (4.8-10.8) K/ul RBC 4.17 L (4.70-6.10) M/uL Hgb 12.7 L (14.0-18.0) g/dl Hct 37.2 L (42.0-52.0) % MCV 89.2 (80.0-100.0) fL MCH 30.5 (25.0-34.0) pg MCHC 34.1 (32.0-36.0) g/dL RDW Std Deviation 44.9 (36.4-46.3) fL RDW Coeff of Tyrell 13.7 (11.5-14.5) % Plt Count 133 (130-400) K/uL MPV 10.5 (9.4-12.4) fL Immature Gran % (Auto) 0.4 % Neut % (Auto) 70.7 % Lymph % (Auto) 15.7 % Crawford % (Auto) 9.4 % Eos % (Auto) 3.2 % Baso % (Auto) 0.6 % Neut # (Auto) 3.29 (1.40-6.50) K/uL Lymph # (Auto) 0.73 L (1.2-3.4) K/uL Crawford # (Auto) 0.44 (0.11-0.59) K/uL Eos # (Auto) 0.15 (0-0.50) K/uL Baso # (Auto) 0.03 (0-0.2) K/uL Immature Gran # (Auto) 0.02 (0.01-0.20) K/uL VBG pH (7.36-7.41) VBG pCO2 (38-50) mmHg VBG pO2 mmHg VBG HCO3 mmol/L VBG O2 Saturation % VBG Base Excess mEq/L Sodium 131 L (136-145) mmol/L Potassium 3.7 (3.5-5.1) mmol/L Chloride 100 (98-107) mmol/L Carbon Dioxide 23 (21-32) mmol/L Anion Gap 8 (3-11) BUN 18 (6-23) mg/dl Creatinine 1.13 (0.6-1.4) mg/dl Est Cr Clr Drug Dosing 59.9 ml/min Est GFR ( Amer) 69.8 ml/min Est GFR (Non-Af Amer) 60.2 ml/min BUN/Creatinine Ratio 15.9 (10-20) Glucose 143 H (70-99(Fasting)) mg/dl Calcium 9.0 (8.6-10.3) mg/dl Magnesium 1.7 (1.7-2.4) mg/dl Total Bilirubin 0.7 (0.2-1.0) mg/dl AST 29 (13-39) U/L ALT 36 (7-52) U/L Alkaline Phosphatase 150 H (34-104) U/L Troponin I High Sens 8.3 (0-20) pg/ml B-Natriuretic Peptide 817 H (0-100) pg/ml Total Protein 7.4 (6.0-8.3) gm/dl Albumin 3.8 (3.4-5.0) gm/dl Globulin 3.6 (2.5-4.0) gm/dl Albumin/Globulin Ratio 1.1 (0.9-2) SARS-CoV-2 (PCR) (Negative) Influenza Type A (PCR) (Neg) Influenza Type B (PCR) (Neg) RSV (RT-PCR) (Neg) 10/25/22 10/25/22 Range/Units 18:42 18:44 WBC (4.8-10.8) K/ul RBC (4.70-6.10) M/uL Hgb (14.0-18.0) g/dl Hct (42.0-52.0) % MCV (80.0-100.0) fL MCH (25.0-34.0) pg MCHC (32.0-36.0) g/dL RDW Std Deviation (36.4-46.3) fL RDW Coeff of Tyrell (11.5-14.5) % Plt Count (130-400) K/uL MPV (9.4-12.4) fL Immature Gran % (Auto) % Neut % (Auto) % Lymph % (Auto) % Crawford % (Auto) % Eos % (Auto) % Baso % (Auto) % Neut # (Auto) (1.40-6.50) K/uL Lymph # (Auto) (1.2-3.4) K/uL Crawford # (Auto) (0.11-0.59) K/uL Eos # (Auto) (0-0.50) K/uL Baso # (Auto) (0-0.2) K/uL Immature Gran # (Auto) (0.01-0.20) K/uL VBG pH 7.45 H (7.36-7.41) VBG pCO2 39 (38-50) mmHg VBG pO2 50 mmHg VBG HCO3 27 mmol/L VBG O2 Saturation 83.5 % VBG Base Excess 3.0 mEq/L Sodium (136-145) mmol/L Potassium (3.5-5.1) mmol/L Chloride (98-107) mmol/L Carbon Dioxide (21-32) mmol/L Anion Gap (3-11) BUN (6-23) mg/dl Creatinine (0.6-1.4) mg/dl Est Cr Clr Drug Dosing ml/min Est GFR ( Amer) ml/min Est GFR (Non-Af Amer) ml/min BUN/Creatinine Ratio (10-20) Glucose (70-99(Fasting)) mg/dl Calcium (8.6-10.3) mg/dl Magnesium (1.7-2.4) mg/dl Total Bilirubin (0.2-1.0) mg/dl AST (13-39) U/L ALT (7-52) U/L Alkaline Phosphatase (34-104) U/L Troponin I High Sens (0-20) pg/ml B-Natriuretic Peptide (0-100) pg/ml Total Protein (6.0-8.3) gm/dl Albumin (3.4-5.0) gm/dl Globulin (2.5-4.0) gm/dl Albumin/Globulin Ratio (0.9-2) SARS-CoV-2 (PCR) NEGATIVE (Negative) Influenza Type A (PCR) Negative (Neg) Influenza Type B (PCR) Negative (Neg) RSV (RT-PCR) Negative (Neg) Imaging Data Radiologist's Impression: Chest X-Ray 10/25/22 18:06 SINGLE VIEW CHEST CLINICAL HISTORY: Dyspnea FINDINGS: An AP, portable, upright chest radiograph is compared to study dated 01/24/2019 and correlated with chest CT dated 08/01/2015. A 2-lead cardiac pacemaker is unchanged in position. There is evidence of previous cardiac valve surgery. Epicardial pacing leads are in place. The heart is enlarged. The pulmonary vasculature is noncongested. Chronic interstitial thickening/no dularity with large bilateral upper lobe opacities is unchanged in prior studies. This is consistent with progressive massive fibrosis. Scarring/atelectasis is noted at the lung bases. No superimposed airspace consolidation is identified. Small pleural effusions are suspected. No pneumothorax is seen. The skeletal structures are osteopenic. The bony thorax is grossly intact. IMPRESSION: 1. Cardiomegaly and cardiac pacemaker without radiographic evidence of congestive failure. 2. Chronic parenchymal changes suggestive of progressive massive fibrosis are similar to prior studies. 3. There is no evidence of superimposed airspace consolidation. 4. Suspect small pleural effusions. ACT 112: Negative or not required by law. Electronically signed by: Ajay Licea M.D. 10/25/2022 6:28 PM Discharge Plan Visit Data Chief Complaint: Shortness of Breath/Dyspnea Stated Complaint: SOB,WEAKNESS LEGS ED Provider: Rula Vilchis Discharge Problem: Acute dyspnea, Elevated brain natriuretic peptide (BNP) level, Acute CHF (congestive heart failure) Forms Stand Alone Forms: My [facility] Prescriptions Prescriptions: No Action metformin 500 mg Tablet 500 mg PO BIDM cyanocobalamin (vitamin B-12) [Vitamin B-12] 1,000 mcg Tablet 1,000 mcg PO DAILY amlodipine 2.5 mg Tablet 2.5 mg PO DAILY doxazosin 8 mg Tablet 8 mg PO HS hydrochlorothiazide 25 mg Tablet 12.5 mg PO DAILY losartan 100 mg Tablet 100 mg PO DAILY finasteride 5 mg Tablet 5 mg PO QAM Anoro Ellipta 62.5-25 mcg/actuation Blister With Device 1 inh INHALATION QAM metoprolol succinate 50 mg Tablet Extended Release 24 Hr 50 mg PO BID fluticasone propionate 50 mcg/actuation [place],Suspension 2 spray INTRANASAL DAILY rosuvastatin 5 mg tablet 5 mg PO HS amoxicillin 500 mg Capsule 2,000 mg PO DIRECTED PRN (Reason: 1 HOUR PRIOR TO DENTAL APPT.) aspirin 81 mg Tablet,Delayed Release (Dr/Ec) 81 mg PO DAILY acetaminophen [Tylenol Extra Strength] 500 mg Tablet 500 - 1,000 mg PO Q6H PRN (Reason: Pain) ascorbic acid (vitamin C) [Vitamin C] 500 mg Tablet 500 mg PO DAILY nitroglycerin [Nitrostat] 0.4 mg Tablet, Sublingual 0.4 mg sublingual DIRECTED PRN (Reason: Chest Pain) ipratropium bromide [Atrovent] 0.02 % Solution 2.5 ml INHALATION TID PRN (Reason: Wheezing) cholecalciferol (vitamin D3) [Vitamin D3] 25 mcg (1,000 unit) Capsule 25 mcg PO DAILY ezetimibe [Zetia] 10 mg Tablet 10 mg PO DAILY levalbuterol HCl 1.25 mg/0.5 mL solution for nebulization 1.25 mg INH TID PRN (Reason: Shortness Of Breath Or Wheezing) Rx Instructions: must dilute for administration; may also use every 4 hours as needed for shortness of breath or wheezing Referrals Referrals: Brett Wheeler MD [Primary Care Provider] -
--- NOTE | 2022-10-25 18:30 | XRay Report ---
SINGLE VIEW CHEST CLINICAL HISTORY: Dyspnea FINDINGS: An AP, portable, upright chest radiograph is compared to study dated 01/24/2019 and correlat ed with chest CT dated 08/01/2015. A 2-lead cardiac pacemaker is unchanged in position. There is evide nce of previous cardiac valve surgery. Epicardial pacing leads are in place. The heart is enlarged. T he pulmonary vasculature is noncongested. Chronic interstitial thickening/nodularity with large bilat eral upper lobe opacities is unchanged in prior studies. This is consistent with progressive massive fibrosis. Scarring/atelectasis is noted at the lung bases. No superimposed airspace consolidation is identified. Small pleural effusions are suspected. No pneumothorax is seen. The skeletal structures a re osteopenic. The bony thorax is grossly intact. IMPRESSION: 1. Cardiomegaly and cardiac pacemaker without radiographic evidence of congestive failure. 2. Chronic parenchymal changes suggestive of progressive massive fibrosis are similar to prior studie s. 3. There is no evidence of superimposed airspace consolidation. 4. Suspect small pleural effusions. ACT 112: Negative or not required by law. Electronically signed by: Ajay Licea M.D. 10/25/2022 6:28 PM
[2022-10-25 18:49] LABS: Albumin Globulin Ratio 1.1 (0.9-2); Albumin Level 3.8 gm/dl (3.4-5.0); BUN Creatinine Ratio 15.9 (10-20); Bilirubin,Total 0.7 mg/dl (0.2-1.0); Creatinine Clr Calc Pharmacy 59.9 ml/min; Est GFR (African American) 69.8 ml/min; Est GFR (Non-African American) 60.2 ml/min; Globulin 3.6 gm/dl (2.5-4.0); Magnesium 1.7 mg/dl (1.7-2.4); Potassium 3.7 mmol/L (3.5-5.1); Total Protein 7.4 gm/dl (6.0-8.3)
[2022-10-25 18:55] LABS: Troponin I High Sensitivity 8.3 pg/ml (0-20)
[2022-10-25 18:57] LABS: HCO3 VBG 27 mmol/L; Oxygen Saturation VBG 83.5 %; PCO2 VBG 39 mmHg (38-50); PO2 VBG 50 mmHg; pH VBG 7.45 (7.36-7.41)
[2022-10-25 19:16] LABS: Basophils # (auto) 0.03 K/uL (0-0.2); Basophils % (auto) 0.6 %; Eosinophils # (auto) 0.15 K/uL (0-0.50); Eosinophils % (auto) 3.2 %; Hematocrit (blood only) 37.2 % (42.0-52.0); Hemoglobin 12.7 g/dl (14.0-18.0); Immature Granulocytes # (auto) 0.02 K/uL (0.01-0.20); Immature Granulocytes % (auto) 0.4 %; Lymphocytes # (auto) 0.73 K/uL (1.2-3.4); Lymphocytes % (auto) 15.7 %; Mean Corpuscular Hemoglobin 30.5 pg (25.0-34.0); Mean Corpuscular Hgb Conc 34.1 g/dL (32.0-36.0); Mean Corpuscular Volume 89.2 fL (80.0-100.0); Mean Platelet Volume 10.5 fL (9.4-12.4); Monocytes # (auto) 0.44 K/uL (0.11-0.59); Monocytes % (auto) 9.4 %; Neutrophils # (auto) 3.29 K/uL (1.40-6.50); Neutrophils % (auto) 70.7 %; Platelet Count 133 K/uL (130-400); RDW Coefficient of Variation 13.7 % (11.5-14.5); RDW Standard Deviation 44.9 fL (36.4-46.3); Red Blood Count 4.17 M/uL (4.70-6.10); White Blood Count 4.66 K/ul (4.8-10.8)
[2022-10-25 19:43] LABS: Influenza A virus by PCR Negative (Neg); Influenza B virus by PCR Negative (Neg); RSV by PCR Negative (Neg); SARS CoV2 RNA(COVID-19) Ceph NEGATIVE (Negative)
[2022-10-25] MEDS ORDERED: FUROSEMIDE 40 MG/4 ML VIAL IV ONE (20:06)
[2022-10-25] MEDS ORDERED: FUROSEMIDE INJ 20 MG/2 ML VIAL IV ONE (20:16)
[2022-10-25] MEDS ORDERED: ALBUT/IPRATROP 3MG/0.5MG NEB 3 ML VIAL NEB STA (20:17)
--- NOTE | 2022-10-25 20:46 | History & Physical Report ---
Date of Service October 25, 2022 Assessment & Plan (1) Shortness of breath: (2) CAD (coronary artery disease): (3) Third degree heart block: (4) Pacemaker: (5) Diabetes mellitus, type II: (6) HTN (hypertension): (7) Dyslipidemia: (8) Pulmonary fibrosis: (9) BPH (benign prostatic hyperplasia): Plan: Assessment and plan per Dr Palomino. See addendum History of Present Illness Chief Complaint: Shortness of breath Primary Care Provider: Brett Wheeler MD Patient is 82-year-old male with PMH CAD, third-degree heart block s/p pacemaker, HTN, HLD, history of mitral valve repair, DM II, pulmonary fibrosis, GERD, BPH presented to ER with complaint of shortness of breath x 3-4 weeks. Patient reports exertional shortness of breath with walking. It has progressively worsened over the past 3 to 4 weeks. Denies any associated chest pain, dizziness, palpitations. Patient reports chronic cough in the morning. He states for the past couple of months has had postnasal drip. Patient reports his coughing up clear phlegm. He feels it is coming from postnasal drip. Years past patient had used Flonase, has not used recently. Denies any noted weight changes. Reports some lower extremity edema, feels left is worse than right. States his oh "a while ago". He has noticed some redness. Denies any significant pain. He states past 3-4 weeks he has had bilateral leg weakness with walking. He has not been using nebulizer. Denies fever/chills, diaphoresis, N/V/D/C, BENNETT, dizziness, syncope, neck pain, orthopnea, hemoptysis, sore throat,otalgia, abdominal pain, paresthesias, other rashes, urinary symptoms. Allergies Allergy/AdvReac Type Severity Reaction Status Date / Time pravastatin [From Pravachol] AdvReac Intermediate Muscle Pain Verified 10/25/22 19:00 Home Medications Medication Instructions Recorded Confirmed Type amlodipine 2.5 mg tablet 2.5 mg PO DAILY 11/04/18 10/25/22 History cyanocobalamin (vitamin B-12) 1,000 mcg PO DAILY 11/04/18 10/25/22 History 1,000 mcg tablet (Vitamin B-12) doxazosin 8 mg tablet 8 mg PO HS 11/04/18 10/25/22 History finasteride 5 mg tablet 5 mg PO QAM 11/04/18 10/25/22 History hydrochlorothiazide 25 mg tablet 12.5 mg PO DAILY 11/04/18 10/25/22 History losartan 100 mg tablet 100 mg PO DAILY 11/04/18 10/25/22 History metformin 500 mg tablet 500 mg PO BIDM 11/04/18 10/25/22 History umeclidinium 62.5 mcg-vilanterol 1 inh inhalation QAM 11/04/18 10/25/22 History 25 mcg/actuation powdr for inhalation (Anoro Ellipta) fluticasone propionate 50 2 spray intranasal DAILY 01/24/19 10/25/22 History mcg/actuation nasal spray,suspension metoprolol succinate 50 mg 50 mg PO BID 01/24/19 10/25/22 History tablet,extended release 24 hr rosuvastatin 5 mg tablet 5 mg PO HS 01/24/19 10/25/22 History acetaminophen 500 mg tablet 500 - 1,000 mg PO Q6H PRN Pain 10/25/22 10/25/22 History (Tylenol Extra Strength) amoxicillin 500 mg capsule 2,000 mg PO DIRECTED PRN 1 HOUR 10/25/22 10/25/22 History PRIOR TO DENTAL APPT. ascorbic acid (vitamin C) 500 mg 500 mg PO DAILY 10/25/22 10/25/22 History tablet (Vitamin C) aspirin 81 mg tablet,delayed 81 mg PO DAILY 10/25/22 10/25/22 History release cholecalciferol (vitamin D3) 25 25 mcg PO DAILY 10/25/22 10/25/22 History mcg (1,000 unit) capsule (Vitamin D3) ezetimibe 10 mg tablet (Zetia) 10 mg PO DAILY 10/25/22 10/25/22 History ipratropium bromide 0.02 % 2.5 ml inhalation TID PRN Wheezing 10/25/22 10/25/22 History solution for inhalation levalbuterol HCl 1.25 mg/0.5 mL 1.25 mg inhalation TID PRN 10/25/22 10/25/22 History solution for nebulization Shortness Of Breath Or Wheezing nitroglycerin 0.4 mg sublingual 0.4 mg sublingual DIRECTED PRN 10/25/22 History tablet (Nitrostat) Chest Pain Past Med/Surg History Medical History BPH (benign prostatic hyperplasia) CAD (coronary artery disease) "cath 10/2011 - 60% mid LAD stenosis" COPD, moderate Diabetes mellitus, type II Dyslipidemia HTN (hypertension) Non-ST elevation MN (NSTEMI) Non-sustained ventricular tachycardia Pacemaker Pulmonary fibrosis RBBB Third degree heart block s/p pacemaker placement on 11/05/18 Valvular cardiomyopathy Surgical History H/O inguinal hernia repair History of total left hip replacement "and revision" Hx of mitral valve repair "for myxomatous valve" S/P coronary artery stent placement Family History Other Cancer Heart disease Social History Smoking Status: Former smoker Second Hand Exposure: No; Do You Dip or Chew Tobacco: No; Hx Alcohol Use: No Hx Substance Use: No Preferred Language: Japanese Communication Ability: Effective Permaculture Designer Required: No Beliefs That Will Affect Care: None marital status: Current Living Situation: Spouse Feels Safe at Home: Yes Safety Concerns: Feels Safe At This Time Assistive Devices: Glasses Review of Systems Review of Systems: All systems reviewed & are unremarkable except as noted in HPI & below Physical Exam Physical Exam: General: no distress, WDWN Head: normocephalic, atraumatic Eyes: conjunctiva non-injected, anicteric ENT: normal inspection external ears, nose, mucous membranes moist Neck: supple, trachea midline, non-tender Lungs: clear, no respiratory distress, no wheezing/rhonchi/rales CV: regular rate, regular rhythm with ectopy, no murmur Abd: normal BS, soft, non-tender Ext: no cyanosis, no calf tenderness; RLE: 1-2+pitting edema, LLE: 2+ pitting edema, left lower anterior oh with scab with surrounding erythema, no tenderness to palpation Neuro: A&O x 3, no focal deficits noted, normal affect Skin: warm, dry Results & Data Results & Data Vital Signs (Past 12 Hours) Vital Signs Temp Pulse Resp BP Pulse Ox O2 Del Method 10/25/22 18:12 Room Air 10/25/22 18:06 Room Air 10/25/22 17:06 73 10/25/22 16:38 36.3 C L 82 30 H 125/71 94 Room Air Laboratory Results Short CBC 10/25/22 Range/Units 17:13 WBC 4.66 L (4.8-10.8) K/ul Hgb 12.7 L (14.0-18.0) g/dl Hct 37.2 L (42.0-52.0) % Plt Count 133 (130-400) K/uL BMP 10/25/22 17:13 Sodium 131 L Potassium 3.7 Chloride 100 Carbon Dioxide 23 BUN 18 Creatinine 1.13 Glucose 143 H Calcium 9.0 Liver Function 10/25/22 Range/Units 17:13 Total Bilirubin 0.7 (0.2-1.0) mg/dl AST 29 (13-39) U/L ALT 36 (7-52) U/L Alkaline Phosphatase 150 H (34-104) U/L Albumin 3.8 (3.4-5.0) gm/dl Diagnostic Findings Chest X-Ray 10/25/22 18:06 SINGLE VIEW CHEST CLINICAL HISTORY: Dyspnea FINDINGS: An AP, portable, upright chest radiograph is compared to study dated 01/24/2019 and correlated with chest CT dated 08/01/2015. A 2-lead cardiac pacemaker is unchanged in position. There is evidence of previous cardiac valve surgery. Epicardial pacing leads are in place. The heart is enlarged. The pulmonary vasculature is noncongested. Chronic interstitial thickening/nodularity with large bilateral upper lobe opacities is unchanged in prior studies. This is consistent with progressive massive fibrosis. Scarring/atelectasis is noted at the lung bases. No superimposed airspace consolidation is identified. Small pleural effusions are suspected. No pneumothorax is seen. The skeletal structures are osteopenic. The bony thorax is grossly intact. IMPRESSION: 1. Cardiomegaly and cardiac pacemaker without radiographic evidence of congestive failure. 2. Chronic parenchymal changes suggestive of progressive massive fibrosis are similar to prior studies. 3. There is no evidence of superimposed airspace consolidation. 4. Suspect small pleural effusions. ACT 112: Negative or not required by law. Electronically signed by: Ajay Licea M.D. 10/25/2022 6:28 PM Supervising Physician Co-Signing Physician Notes IM ATTENDING : Patient seen and examined. History obtained from patient and records. Preceding documentation by Ms. Vanessa Mello PA-C reviewed. In addition, FOBT done at the ER was negative. Abdominal ultrasound showed : There is small volume ascites. LE venous Dopplers negative for DVT. FINAL ASSESSMENT AND PLAN as follows : Shortness of breath possibly secondary to right-sided heart failure hx systolic dysfunction, EF 55 to 59% (TTE 2021) Fluid retention in the setting of abnormal BNP and normal chest x-ray Rule out pulmonary hypertension, history COPD/RLD/pulmonary fibrosis/pneumoconiosis as per records Rule out tachyarrhythmia (hx NSVT, history of frequent PVCs), pacemaker dysfunction, hx high degree AV block sp PPM Multifactorial hyponatremia secondary to hypervolemia and HCTZ New onset anemia, possibly dilutional secondary to fluid retention FOBT negative CAD status post stent History of mitral valve repair Hypertension, stable Hyperlipidemia on statin Rx DM2 on oral medications, well-controlled as of recent hemoglobin A1c of 6.10 September 2022 Past tobacco abuse PCU Diuretic Rx Strict I/Os, daily weights, CHF education, fluid restriction Pacemaker interrogation TTE, Cardiology consult Re: CHF Hyponatremia work-up, hold HCTZ for now Anemia work-up, transfuse RBC if hemoglobin less than 8 and or symptomatic anemia Basal bolus insulin, ISS BG goal 1 10-1 40, carb count coverage DVT prophylaxis. Lovenox subcu Full code Text document was generated using Dojo voice recognition software. It may contain grammatical or spelling errors. Kindly contact undersigned for clarification of any documentation item in question.
[2022-10-25] MEDS ORDERED: oxyCODONE HCL IR 5 MG TAB (IMMEDIATE RELEASE) PO PRN (22:49)
[2022-10-25] MEDS ORDERED: PROMETHAZINE HCL 6.25 MG in SODIUM CHLORIDE 0.9% 50 ML IV PRN (22:49)
[2022-10-25 23:19] LABS: Appearance Urine Clear (Clear); Bacteria Urine Automated Negative (Negative); Bilirubin Urine Negative (Negative); Blood Urine Negative (Negative); Cast Urine Automated 0 /lpf (0-5); Color Urine Yellow; Epithelial Cell Urine Auto 0-5 /lpf (0-5); Glucose Urine UA Negative (Negative); Ketones Urine Negative (Negative); Leukocyte Esterase Urine Negative (Negative); Nitrite Urine Negative (Negative); Protein Urine Trace (Negative); RBC Urine Automated 0-4 /hpf (0-4); Specific Gravity Urine 1.012 (1.000-1.030); Urobilinogen Urine Negative (Negative); pH Urine 5.5 (4.5-7.5)
[2022-10-26] MEDS ORDERED: NITROGLYCERIN SL 0.4 MG/TAB TAB SL PRN (00:12)
[2022-10-26] MEDS ORDERED: GLUCOSE 10 TAB/TUBE PO PRN (00:12)
[2022-10-26] MEDS ORDERED: GLUCOSE 40% GEL 15 GM TUBE PO PRN (00:12)
[2022-10-26] MEDS ORDERED: METOPROLOL SUCC 50MG EXT REL TAB PO SCH ×2 (00:12→09:00)
[2022-10-26] MEDS ORDERED: GLUCAGON FOR INJ 1 MG VIAL SQ PRN (00:12)
[2022-10-26] MEDS ORDERED: DEXTROSE 50% 50 ML SYRINGE IV PRN (00:12)
[2022-10-26] MEDS ORDERED: CARBOHYDRATES FOR HYPOGLYCEMIA PO PRN (00:12)
[2022-10-26] MEDS ORDERED: ACETAMINOPHEN 325 MG TAB PO PRN (00:12)
[2022-10-26] MEDS: INSULIN ASPART PER UNIT CHARGE SC SCH ×5 (01:05→21:09)
--- NOTE | 2022-10-26 02:03 | Ultrasound Report ---
Exam(s): US VENOUS BILATERAL LOWER EXTREMITIES EXAM: US Duplex Bilateral Lower Extremities Veins CLINICAL HISTORY: Reason for exam: leg swelling. TECHNIQUE: Real-time duplex ultrasound scan of the bilateral lower extremity veins integrating B-mode two-dimensional vascular structure, Doppler spectral analysis, color flow Doppler imaging and compression. COMPARISON: No relevant prior studies available. FINDINGS: Right deep veins: Unremarkable. No DVT in the right common femoral, femoral, proximal deep femoral or popliteal veins. The veins demonstrate normal color flow, are normally compressible, with normal phasic flow and/or augmentation response. Right superficial veins: Unremarkable. No thrombus in the visualized right great saphenous vein. Left deep veins: Unremarkable. No DVT in the left common femoral, femoral, proximal deep femoral or popliteal veins. The veins demonstrate normal color flow, are normally compressible, with normal phasic flow and/or augmentation response. Left superficial veins: Unremarkable. No thrombus in the visualized left great saphenous vein. Soft tissues: No acute findings. No popliteal cyst. IMPRESSION: Normal bilateral lower extremity duplex venous ultrasound. Electronically signed by: John Lund MD 10/26/22 02:02 AM
--- NOTE | 2022-10-26 02:03 | Ultrasound Report ---
Exam(s): US ABDOMEN LIMITED EXAM: US Abdomen Limited, Right Upper Quadrant CLINICAL HISTORY: Reason for exam: abd distention. TECHNIQUE: Real-time ultrasound of the right upper quadrant with image documentation. COMPARISON: No relevant prior studies available. FINDINGS: Free fluid: There is small volume ascites. IMPRESSION: There is small volume ascites. Electronically signed by: John Lund MD 10/26/22 02:02 AM
[2022-10-26] MEDS ORDERED: FUROSEMIDE INJ 20 MG/2 ML VIAL IV ONE (05:15)
[2022-10-26] MEDS ORDERED: MAGNESIUM SULFATE / D5W 1 GM/100 ML BAG IV ONE (05:15)
[2022-10-26] MEDS ORDERED: ALBUMIN 25% 100 mL 25 GM/100 ML VIAL IV ONE (05:15)
[2022-10-26] MEDS ORDERED: POTASSIUM CHLORIDE PWD 20 MEQ PACK PO ONE (05:30)
[2022-10-26 06:23] LABS: Basophils # (auto) 0.03 K/uL (0-0.2); Basophils % (auto) 0.7 %; Eosinophils # (auto) 0.14 K/uL (0-0.50); Eosinophils % (auto) 3.1 %; Hematocrit (blood only) 35.9 % (42.0-52.0); Hemoglobin 12.9 g/dl (14.0-18.0); Immature Granulocytes # (auto) 0.01 K/uL (0.01-0.20); Immature Granulocytes % (auto) 0.2 %; Lymphocytes # (auto) 0.76 K/uL (1.2-3.4); Mean Corpuscular Hemoglobin 32.8 pg (25.0-34.0); Mean Corpuscular Hgb Conc 35.9 g/dL (32.0-36.0); Mean Corpuscular Volume 91.3 fL (80.0-100.0); Mean Platelet Volume 9.8 fL (9.4-12.4); Monocytes # (auto) 0.49 K/uL (0.11-0.59); Monocytes % (auto) 10.9 %; Neutrophils # (auto) 3.05 K/uL (1.40-6.50); Neutrophils % (auto) 68.1 %; Platelet Count 136 K/uL (130-400); RDW Coefficient of Variation 13.5 % (11.5-14.5); RDW Standard Deviation 44.2 fL (36.4-46.3); Red Blood Count 3.93 M/uL (4.70-6.10); Reticulocyte % 1.7 % (0.5-2.0); Reticulocytes # 0.07 10^6/uL (0.02-0.10); White Blood Count 4.48 K/ul (4.8-10.8)
[2022-10-26 06:38] LABS: BUN Creatinine Ratio 17.9 (10-20); Calcium 9.1 mg/dl (8.6-10.3); Creatinine Clr Calc Pharmacy 55.8 ml/min; Est GFR (African American) 70.5 ml/min; Est GFR (Non-African American) 60.8 ml/min; Potassium 3.5 mmol/L (3.5-5.1)
[2022-10-26 06:58] LABS: Ferritin 202.9 ng/ml (8-388)
[2022-10-26 07:01] LABS: Vitamin B12 > 1500 pg/ml (180-914)
[2022-10-26 07:08] LABS: Base Excess ABG 3.1 mEq/L (-9-1.8); HCO3 ABG 27 mmol/L (19-24); Oxygen Saturation ABG 96.8 % (90-95); PCO2 ABG 38 mmHg (35-46); PO2 ABG 72 mmHg (80-95); pH ABG 7.46 (7.35-7.45)
[2022-10-26 07:10] LABS: Allen Test Pos (Pos)
[2022-10-26] MEDS: amLODIPine BESYLATE 5 MG TAB PO SCH (08:38)
[2022-10-26] MEDS: UMECLIDINIUM/VILANTEROL 62.5/25MCG 7 PUFFS/INHALER INH SCH (08:42)
[2022-10-26] MEDS: FINASTERIDE 5 MG TAB PO SCH (08:43)
[2022-10-26] MEDS: LOSARTAN POTASSIUM 50 MG TAB PO SCH (08:44)
[2022-10-26] MEDS: ASPIRIN 81 MG ECTAB PO SCH (08:44)
[2022-10-26] MEDS: EZETIMIBE 10 MG TABLET PO SCH (08:46)
[2022-10-26] MEDS: FLUTICASONE PROPIONATE NA SPR 16 GM BTL SCH (08:46)
[2022-10-26] MEDS: CYANOCOBALAMIN (B-12) 500 MCG TABLET PO SCH (08:46)
[2022-10-26] MEDS ORDERED: LANTUS PER UNIT CHARGE SQ SCH (09:00)
--- NOTE | 2022-10-26 13:00 | Electrocardiogram Report ---
Test Reason : Blood Pressure : / mmHG Vent. Rate : 077 BPM Atrial Rate : 077 BPM P-R Int : 250 ms QRS Dur : 152 ms QT Int : 462 ms P-R-T Axes : 009 -68 095 degrees QTc Int : 522 ms Sinus rhythm with 1st degree A-V block with frequent Premature ventricular complexes in a pattern of bigeminy atrial-paced complexes Left axis deviation Right bundle branch block T wave abnormality, consider lateral ischemia Abnormal ECG When compared with ECG of 25-JAN-2019 07:17, Right bundle branch block has replaced Non-specific intra-ventricular conduction block Confirmed by Jm Pierre ([id number]) on 10/26/2022 12:59:57 PM Referred By: REFERRED SELF Confirmed By:Jm Pierre
--- NOTE | 2022-10-26 13:14 | Electrocardiogram Report ---
Test Reason : Blood Pressure : / mmHG Vent. Rate : 074 BPM Atrial Rate : 074 BPM P-R Int : 000 ms QRS Dur : 138 ms QT Int : 486 ms P-R-T Axes : 000 105 -80 degrees QTc Int : 539 ms atrial-paced complexes and Premature ventricular complexes in a pattern of bigeminy Rightward axis Right bundle branch block Abnormal ECG When compared with ECG of 25-OCT-2022 16:54, (unconfirmed) Electronic atrial pacemaker has replaced Sinus rhythm Confirmed by Jm Pierre ([id number]) on 10/26/2022 1:14:31 PM Referred By: REFERRED SELF Confirmed By:Jm Pierre
--- NOTE | 2022-10-26 13:21 | Cardiology Consultation ---
Date of Consultation October 26, 2022 Assessment & Plan (1) Acute CHF (congestive heart failure): (2) Hx of mitral valve repair: (3) Pulmonary fibrosis: (4) Pacemaker: Plan Patient is a an 82-year-old male with complex history as noted. Carries an underlying concern of prior remote mitral valve repair, chronic stable ischemic heart disease status post coronary invention for single-vessel disease 2019, indwelling dual-chamber permanent pacemaker with chronic frequent ventricular ectopy He presents now with signs and symptoms of progressive fluid retention over the past several weeks and exam consistent with right heart failure greater than left LV systolic function is mildly reduced in comparison to prior studies but frequent ventricular ectopy present Impression: 1. Acute systolic and diastolic heart failure right greater than left with mildly reduced LV systolic function: We will continue IV diuretics following renal function closely consider adding spironolactone as part of course. 2. Chronic ischemic heart disease no symptoms to suggest acute coronary syndro me 3. Massive pulmonary fibrosis currently without oxygen demands no may be contributing to right heart concerns 4. Frequent ventricular ectopy which do not appear to have reduced with increase beta-kieran therapy and with increased pacing. We will reduce p.m. dose of metoprolol History of Present Illness Reason for Consultation: Congestive heart failure right greater than left Requesting Physician: Dr. Santoyo Attending Physician: Len Santoyo MD History of Present Illness Patient is an 82-year-old male with complex underlying issues to include 1. Myxomatous mitral valve disease, status post complex mitral valve repair in September of 2011, resuspension of the posterior leaflet with [place] cord and 28 mm annuloplasty ring. 2. Valvular induced cardiomyopathy, with return to normal LV systolic function. 3. Symptomatic high-degree heart block and associated ventricular asystole status post dual-chamber [employer] pacemaker implantation on November 05, [address] DAVIS [id number] 08/26/2022 device interrogation demonstrated appropriate function. Remaining longevity: 9.7 years. Rhythm predominantly atrial paced (88%). Ventricular paced 34%. Time in AT/AF less than 0.1%. 4. ASCVD. Status post November 2018 NSTEMI status post PCI of the mid LCX with a single drug eluting stent. Echocardiogram at that time with mild LV dysfunction, posterior lateral wall motion abnormality, EF 45 to 50%. 5. Chronic frequent PVC's, asymptomatic, 228/hour via most recent device interrogation. 6. Ventricular tachycardia via prior pacemaker interrogation, with evaluation via stress testing declined. 7. Hyperlipidemia. Past poor tolerance to statin therapy, tolerating low dose rosuvastatin and ezetimibe. Against PCSK9 inhibitor therapy. . 8. Hypertension. Controlled. 9. Occupational pneumoconiosis with massive pulmonary fibrosis Patient presents this admission noting several weeks history of dyspnea on exertion more pronounced than in past. Symptoms of been associated with leg weakness with exertion ultimately culminating in ER presentation. He notes increasing lower extremity edema and increasing abdominal girth. Weight is up 5 to 6 pounds over the last month. No specific chest pains, tachypalpitations, dizziness or lightheadedness. No syncope or near syncope No fevers chills unexplained infections. No bleeding difficulties No irritation at pacemaker site Allergies Allergy/AdvReac Type Severity Reaction Status Date / Time pravastatin [From Pravachol] AdvReac Intermediate Muscle Pain Verified 10/25/22 19:00 Home Medications Medication Instructions Recorded Confirmed Type amlodipine 2.5 mg tablet 2.5 mg PO DAILY 11/04/18 10/25/22 History cyanocobalamin (vitamin B-12) 1,000 mcg PO DAILY 11/04/18 10/25/22 History 1,000 mcg tablet (Vitamin B-12) doxazosin 8 mg tablet 8 mg PO 11/04/18 10/25/22 History finasteride 5 mg tablet 5 mg PO QAM 11/04/18 10/25/22 History hydrochlorothiazide 25 mg tablet 12.5 mg PO DAILY 11/04/18 10/25/22 History losartan 100 mg tablet 100 mg PO DAILY 11/04/18 10/25/22 History metformin 500 mg tablet 500 mg PO BIDM 11/04/18 10/25/22 History umeclidinium 62.5 mcg-vilanterol 1 inh inhalation QAM 11/04/18 10/25/22 History 25 mcg/actuation powdr for inhalation (Anoro Ellipta) fluticasone propionate 50 2 spray intranasal DAILY 01/24/19 10/25/22 History mcg/actuation nasal spray,suspension metoprolol succinate 50 mg 50 mg PO BID 01/24/19 10/25/22 History tablet,extended release 24 hr rosuvastatin 5 mg tablet 5 mg PO HS 01/24/19 10/25/22 History acetaminophen 500 mg tablet 500 - 1,000 mg PO Q6H PRN Pain 10/25/22 10/25/22 His tory (Tylenol Extra Strength) amoxicillin 500 mg capsule 2,000 mg PO DIRECTED PRN 1 HOUR 10/25/22 10/25/22 History PRIOR TO DENTAL APPT. ascorbic acid (vitamin C) 500 mg 500 mg PO DAILY 10/25/22 10/25/22 History tablet (Vitamin C) aspirin 81 mg tablet,delayed 81 mg PO DAILY 10/25/22 10/25/22 History release cholecalciferol (vitamin D3) 25 25 mcg PO DAILY 10/25/22 10/25/22 History mcg (1,000 unit) capsule (Vitamin D3) ezetimibe 10 mg tablet (Zetia) 10 mg PO DAILY 10/25/22 10/25/22 History ipratropium bromide 0.02 % 2.5 ml inhalation TID PRN Wheezing 10/25/22 10/25/22 History solution for inhalation levalbuterol HCl 1.25 mg/0.5 mL 1.25 mg inhalation TID PRN 10/25/22 10/25/22 History solution for nebulization Shortness Of Breath Or Wheezing nitroglycerin 0.4 mg sublingual 0.4 mg sublingual DIRECTED PRN 10/25/22 10/25/22 History tablet (Nitrostat) Chest Pain Patient History Medical History BPH (benign prostatic hyperplasia) CAD (coronary artery disease) "cath 10/2011 - 60% mid LAD stenosis" COPD, moderate Diabetes mellitus, type II Dyslipidemia HTN (hypertension) Non-ST elevation [place] (NSTEMI) Non-sustained ventricular tachycardia Pacemaker Pulmonary fibrosis RBBB Third degree heart block s/p pacemaker placement on 11/05/18 Valvular cardiomyopathy Surgical History H/O inguinal hernia repair History of total left hip replacement "and revision" Hx of mitral valve repair "for myxomatous valve" S/P coronary artery stent placement Family History Other Cancer Heart disease Social History Smoking Status: Former smoker Second Hand Exposure: No; Do You Dip or Chew Tobacco: No; Hx Alcohol Use: No Hx Substance Use: No Preferred Language: Khmer Communication Ability: Effective 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 Beliefs That Will Affect Care: None marital status: Current Living Situation: Spouse Feels Safe at Home: Yes Safety Concerns: Feels Safe At This Time Assistive Devices: Glasses Physical Exam Constitutional: well developed and well nourished; no acute distress Eyes: PERRL, conjunctivae normal, anicteric sclerae ENMT: external ear and nose normal, oropharynx normal Neck: trachea midline, no thyromegaly Respiratory: Auscultation: + diminished lung sounds and + rales Cardiovascular: Rate/Rhythm: regular rate and regular rhythm Heart Sounds: no murmur Vessels: + JVD Extremities: + edema Gastrointestinal (Abdomen): Inspection/Auscultation: + abdomen distended Percussion/Palpation: abdomen nontender Musculoskeletal: no cyanosis or clubbing, extremities motor strength 5/5 Neurologic: PERRL, EOMI, accommodation nl, no face palsy, no dysarthria Results & Data Vital Signs (Past 12 Hours) Vital Signs Temp Pulse Resp BP Pulse Ox O2 Del Method 10/26/22 07:10 36.6 C 74 18 124/69 94 Room Air 10/26/22 03:15 36.5 C 68 18 115/55 L 86 L Room Air Laboratory Results Laboratory Results - last 24 hr 10/25/22 10/25/22 10/25/22 17:13 17:13 17:13 WBC 4.66 L RBC 4.17 L Hgb 12.7 L Hct 37.2 L MCV 89.2 MCH 30.5 MCHC 34.1 RDW Std Deviation 44.9 RDW Coeff of [place] 13.7 Plt Count 133 MPV 10.5 Immature Gran % (Auto) 0.4 Neut % (Auto) 70.7 Lymph % (Auto) 15.7 Person % (Auto) 9.4 Eos % (Auto) 3.2 Baso % (Auto) 0.6 Reticulocyte % (Auto) Neut # (Auto) 3.29 Lymph # (Auto) 0.73 L Person # (Auto) 0.44 Eos # (Auto) 0.15 Baso # (Auto) 0.03 Reticulocyte # Immature Gran # (Auto) 0.02 ABG pH ABG pCO2 ABG pO2 ABG HCO3 ABG O2 Saturation ABG Base Excess Mario Test VBG pH VBG pCO2 VBG pO2 VBG HCO3 VBG O2 Saturation VBG Base Excess Barometric Pressure Oxygen Given Sodium 131 L Potassium 3.7 Chloride 100 Carbon Dioxide 23 Anion Gap 8 BUN 18 Creatinine 1.13 Est Cr Clr Drug Dosing 59.9 Est GFR ( Amer) 69.8 Est GFR (Non-Af Amer) 60.2 BUN/Creatinine Ratio 15.9 Glucose 143 H POC Glucose Osmolality Calcium 9.0 Magnesium 1.7 Iron Transferrin Ferritin Total Bilirubin 0.7 AST 29 ALT 36 Alkaline Phosphatase 150 H Troponin I High Sens 8.3 B-Natriuretic Peptide 817 H Total Protein 7.4 Albumin 3.8 Globulin 3.6 Albumin/Globulin Ratio 1.1 Vitamin B12 Folate TSH Urine Color Urine Appearance Urine pH Ur Specific [place] Urine Protein Urine Glucose (UA) Urine Ketones Urine Blood Urine Nitrite Urine Bilirubin Urine Urobilinogen Ur Leukocyte Esterase Urine WBC (Auto) Urine RBC (Auto) U Hyaline Cast (Auto) U Epithel Cells (Auto) Urine Bacteria (Auto) Urine Osmolality Ur Random Sodium SARS-CoV-2 (PCR) Influenza Type A (PCR) Influenza Type B (PCR) RSV (RT-PCR) 10/25/22 10/25/22 10/25/22 17:13 17:13 18:42 WBC RBC Hgb Hct MCV MCH MCHC RDW Std Deviation RDW Coeff of [place] Plt Count MPV Immature Gran % (Auto) Neut % (Auto) Lymph % (Auto) Person % (Auto) Eos % (Auto) Baso % (Auto) Reticulocyte % (Auto) Neut # (Auto) Lymph # (Auto) Person # (Auto) Eos # (Auto) Baso # (Auto) Reticulocyte # Immature Gran # (Auto) ABG pH ABG pCO2 ABG pO2 ABG HCO3 ABG O2 Saturation ABG Base Excess Mario Test VBG pH VBG pCO2 VBG pO2 VBG HCO3 VBG O2 Saturation VBG Base Excess Barometric Pressure Oxygen Given Sodium Potassium Chloride Carbon Dioxide Anion Gap BUN Creatinine Est Cr Clr Drug Dosing Est GFR ( Amer) Est GFR (Non-Af Amer) BUN/Creatinine Ratio Glucose POC Glucose Osmolality 282 Calcium Magnesium Iron Transferrin Ferritin Total Bilirubin AST ALT Alkaline Phosphatase Troponin I High Sens B-Natriuretic Peptide Total Protein Albumin Globulin Albumin/Globulin Ratio Vitamin B12 Folate TSH 2.479 Urine Color Urine Appearance Urine pH Ur Specific [place] Urine Protein Urine Glucose (UA) Urine Ketones Urine Blood Urine Nitrite Urine Bilirubin Urine Urobilinogen Ur Leukocyte Esterase Urine WBC (Auto) Urine RBC (Auto) U Hyaline Cast (Auto) U Epithel Cells (Auto) Urine Bacteria (Auto) Urine Osmolality Ur Random Sodium SARS-CoV-2 (PCR) NEGATIVE Influenza Type A (PCR) Negative Influenza Type B (PCR) Negative RSV (RT-PCR) Negative 10/25/22 10/25/22 10/25/22 18:44 23:08 23:08 WBC RBC Hgb Hct MCV MCH MCHC RDW Std Deviation RDW Coeff of [place] Plt Count MPV Immature Gran % (Auto) Neut % (Auto) Lymph % (Auto) Person % (Auto) Eos % (Auto) Baso % (Auto) Reticulocyte % (Auto) Neut # (Auto) Lymph # (Auto) Person # (Auto) Eos # (Auto) Baso # (Auto) Reticulocyte # Immature Gran # (Auto) ABG pH ABG pCO2 ABG pO2 ABG HCO3 ABG O2 Saturation ABG Base Excess Mario Test VBG pH 7.45 H VBG pCO2 39 VBG pO2 50 VBG HCO3 27 VBG O2 Saturation 83.5 VBG Base Excess 3.0 Barometric Pressure Oxygen Given Sodium Potassium Chloride Carbon Dioxide Anion Gap BUN Creatinine Est Cr Clr Drug Dosing Est GFR ( Amer) Est GFR (Non-Af Amer) BUN/Creatinine Ratio Glucose POC Glucose Osmolality Calcium Magnesium Iron Transferrin Ferritin Total Bilirubin AST ALT Alkaline Phosphatase Troponin I High Sens B-Natriuretic Peptide Total Protein Albumin Globulin Albumin/Globulin Ratio Vitamin B12 Folate TSH Urine Color Urine Appearance Urine pH Ur Specific [place] Urine Protein Urine Glucose (UA) Urine Ketones Urine Blood Urine Nitrite Urine Bilirubin Urine Urobilinogen Ur Leukocyte Esterase Urine WBC (Auto) Urine RBC (Auto) U Hyaline Cast (Auto) U Epithel Cells (Auto) Urine Bacteria (Auto) Urine Osmolality 368 L Ur Random Sodium 46 SARS-CoV-2 (PCR) Influenza Type A (PCR) Influenza Type B (PCR) RSV (RT-PCR) 10/25/22 10/26/22 10/26/22 23:08 00:13 05:57 WBC 4.48 L RBC 3.93 L Hgb 12.9 L Hct 35.9 L MCV 91.3 MCH 32.8 MCHC 35.9 RDW Std Deviation 44.2 RDW Coeff of [place] 13.5 Plt Count 136 MPV 9.8 Immature Gran % (Auto) 0.2 Neut % (Auto) 68.1 Lymph % (Auto) 17.0 Person % (Auto) 10.9 Eos % (Auto) 3.1 Baso % (Auto) 0.7 Reticulocyte % (Auto) 1.7 Neut # (Auto) 3.05 Lymph # (Auto) 0.76 L Person # (Auto) 0.49 Eos # (Auto) 0.14 Baso # (Auto) 0.03 Reticulocyte # 0.07 Immature Gran # (Auto) 0.01 ABG pH ABG pCO2 ABG pO2 ABG HCO3 ABG O2 Saturation ABG Base Excess Mario Test VBG pH VBG pCO2 VBG pO2 VBG HCO3 VBG O2 Saturation VBG Base Excess Barometric Pressure Oxygen Given Sodium Potassium Chloride Carbon Dioxide Anion Gap BUN Creatinine Est Cr Clr Drug Dosing Est GFR ( Amer) Est GFR (Non-Af Amer) BUN/Creatinine Ratio Glucose POC Glucose 124 H Osmolality Calcium Magnesium Iron Transferrin Ferritin Total Bilirubin AST ALT Alkaline Phosphatase Troponin I High Sens B-Natriuretic Peptide Total Protein Albumin Globulin Albumin/Globulin Ratio Vitamin B12 Folate TSH Urine Color Yellow Urine Appearance Clear Urine pH 5.5 Ur Specific [place] 1.012 Urine Protein Trace H Urine Glucose (UA) Negative Urine Ketones Negative Urine Blood Negative Urine Nitrite Negative Urine Bilirubin Negative Urine Urobilinogen Negative Ur Leukocyte Esterase Negative Urine WBC (Auto) 1-5 Urine RBC (Auto) 0-4 U Hyaline Cast (Auto) 0 U Epithel Cells (Auto) 0-5 Urine Bacteria (Auto) Negative Urine Osmolality Ur Random Sodium SARS-CoV-2 (PCR) Influenza Type A (PCR) Influenza Type B (PCR) RSV (RT-PCR) 10/26/22 10/26/22 10/26/22 05:57 05:57 05:57 WBC RBC Hgb Hct MCV MCH MCHC RDW Std Deviation RDW Coeff of [place] Plt Count MPV Immature Gran % (Auto) Neut % (Auto) Lymph % (Auto) Person % (Auto) Eos % (Auto) Baso % (Auto) Reticulocyte % (Auto) Neut # (Auto) Lymph # (Auto) Person # (Auto) Eos # (Auto) Baso # (Auto) Reticulocyte # Immature Gran # (Auto) ABG pH Cancelled ABG pCO2 Cancelled ABG pO2 Cancelled ABG HCO3 Cancelled ABG O2 Saturation Cancelled ABG Base Excess Cancelled Mario Test Cancelled VBG pH VBG pCO2 VBG pO2 VBG HCO3 VBG O2 Saturation VBG Base Excess Barometric Pressure Cancelled Oxygen Given Cancelled Sodium 134 L Potassium 3.5 Chloride 99 Carbon Dioxide 25 Anion Gap 10 BUN 20 Creatinine 1.12 Est Cr Clr Drug Dosing 55.8 Est GFR ( Amer) 70.5 Est GFR (Non-Af Amer) 60.8 BUN/Creatinine Ratio 17.9 Glucose 98 POC Glucose Osmolality Calcium 9.1 Magnesium Iron 49 Transferrin 207 Ferritin 202.9 Total Bilirubin AST ALT Alkaline Phosphatase Troponin I High Sens B-Natriuretic Peptide Total Protein Albumin Globulin Albumin/Globulin Ratio Vitamin B12 > 1500 H Folate 14.98 TSH Urine Color Urine Appearance Urine pH Ur Specific [place] Urine Protein Urine Glucose (UA) Urine Ketones Urine Blood Urine Nitrite Urine Bilirubin Urine Urobilinogen Ur Leukocyte Esterase Urine WBC (Auto) Urine RBC (Auto) U Hyaline Cast (Auto) U Epithel Cells (Auto) Urine Bacteria (Auto) Urine Osmolality Ur Random Sodium SARS-CoV-2 (PCR) Influenza Type A (PCR) Influenza Type B (PCR) RSV (RT-PCR) 10/26/22 10/26/22 10/26/22 06:56 07:45 11:54 WBC RBC Hgb Hct MCV MCH MCHC RDW Std Deviation RDW Coeff of [place] Plt Count MPV Immature Gran % (Auto) Neut % (Auto) Lymph % (Auto) Person % (Auto) Eos % (Auto) Baso % (Auto) Reticulocyte % (Auto) Neut # (Auto) Lymph # (Auto) Person # (Auto) Eos # (Auto) Baso # (Auto) Reticulocyte # Immature Gran # (Auto) ABG pH 7.46 H ABG pCO2 38 ABG pO2 72 L ABG HCO3 27 H ABG O2 Saturation 96.8 H ABG Base Excess 3.1 H Mario Test Pos VBG pH VBG pCO2 VBG pO2 VBG HCO3 VBG O2 Saturation VBG Base Excess Barometric Pressure Oxygen Given room air Sodium Potassium Chloride Carbon Dioxide Anion Gap BUN Creatinine Est Cr Clr Drug Dosing Est GFR ( Amer) Est GFR (Non-Af Amer) BUN/Creatinine Ratio Glucose POC Glucose 110 H 115 H Osmolality Calcium Magnesium Iron Transferrin Ferritin Total Bilirubin AST ALT Alkaline Phosphatase Troponin I High Sens B-Natriuretic Peptide Total Protein Albumin Globulin Albumin/Globulin Ratio Vitamin B12 Folate TSH Urine Color Urine Appearance Urine pH Ur Specific [place] Urine Protein Urine Glucose (UA) Urine Ketones Urine Blood Urine Nitrite Urine Bilirubin Urine Urobilinogen Ur Leukocyte Esterase Urine WBC (Auto) Urine RBC (Auto) U Hyaline Cast (Auto) U Epithel Cells (Auto) Urine Bacteria (Auto) Urine Osmolality Ur Random Sodium SARS-CoV-2 (PCR) Influenza Type A (PCR) Influenza Type B (PCR) RSV (RT-PCR) Diagnostic Findings Echocardiogram 10/26/2022 Rhythm is ventricular paced with frequent ventricular ectopy and bigeminy The left ventricle is normal in size. There is moderate concentric left ventricular hypertrophy. Septal motion is consistent with conduction abnormality. Apical wall motion abnormality may reflect pacemaker activation. There is moderate global hypokinesis of the left ventricle. Ejection Fraction = 40-45%. The right ventricle is mildly dilated. Aortic valve sclerosis mild, without significant aortic valvular stenosis. An annuloplasty ring is noted in the mitral position. The posterior mitral leaflet is thickened and fixed consistent with prior mitral repair surgery. There is no mitral valve stenosis. There is mild tricuspid regurgitation. Right ventricular systolic pressure is elevated at 40-50mmHg.
[2022-10-26] MEDS ORDERED: FUROSEMIDE 40 MG/4 ML VIAL IV ONE (15:33)
--- NOTE | 2022-10-26 16:20 | Hospitalist Progress Note ---
Date of Service October 26, 2022 Assessment & Plan (1) Shortness of breath: (2) CAD (coronary artery disease): (3) Third degree heart block: (4) Pacemaker: (5) Diabetes mellitus, type II: (6) HTN (hypertension): (7) Dyslipidemia: (8) Pulmonary fibrosis: (9) BPH (benign prostatic hyperplasia): Plan: Acute systolic and diastolic heart failure --CXR:Cardiomegaly and cardiac pacemaker without radiographic evidence of congestive failure. Chronic parenchymal changes suggestive of progressive massive fibrosis are similar to prior studies. There is no evidence of superimposed airspace consolidation. Suspect small pleural effusions. --ECHO: Rhythm is ventricular paced with frequent ventricular ectopy and bigeminy. Left ventricle is normal in size. Moderate concentric LVH. Septal motion is consistent with conduction abnormality. Apical wall motion abnormality may reflect pacemaker activation. Moderate global hypokinesis of left ventricle. EF 40 to 45%. Right ventricle is mildly dilated. Aortic valve sclerosis mild, without significant aortic valvular stenosis. Annuloplasty ring is noted in the mitral position. Posterior mitral leaflet is thickened and fixed consistent with prior mitral valve repair surgery. No mitral valve s tenosis. Mild tricuspid regurgitation. Right ventricular systolic pressure is elevated at 40 to 50 mmHg. --Venous Doppler:Normal bilateral lower extremity duplex venous ultrasound. --ABD USD:There is small volume ascites. -- Continue IV diuresis as per cardiology Appreciate cardiology input Monitor volume status, I's and O's, daily weight Pacemaker interrogation requested Monitor renal function, electrolytes Spironolactone added Metoprolol dose decreased as per cardiology. COPD/RLD/pulmonary fibrosis/pneumoconiosis Continue home inhalers No signs of exacerbation Saturating well on room air H/O NSVT, PVCs H.O pacemaker dysfunction H/O high degree AV block sp PPM Continue metoprolol Continue management per cardiology Mild hyponatremia Likely secondary to HCTZ, volume overload Monitor sodium levels Normocytic anemia ? dilutional secondary to fluid retention FOBT negative Anemia work-up negative Moitor CBC CAD S/P stent H/O mitral valve repair Hypertension Hyperlipidemia Continue current medications DM II Hold PO meds HbA1c of 6.10 September 2022 Continue insulin per protocol DVT Px: Heparin SQ Code Status Full Code Admission and Anticipated Discharge Date Admission Date: October 25, 2022 Subjective Patient is seen and examined at bedside States having dyspnea on exertion Also reports bilateral leg swelling Denies any chest pain, dizziness, nausea, abdominal pain No other complaints Review of Systems Review of Systems: All systems reviewed & are unremarkable except as noted in Subjective Physical Exam Physical Exam: Physical Exam: Vitals signs as noted above General Appearance:Moderately built and nourished, no apparent distress Head: normocephalic, Atraumatic Eyes: normal inspection, EOMI Neck: supple, Trachea midline Respiratory/Chest: Decreased, CTA, No accessory muscle use Cardiovascular: S1, S2, No murmur Abdomen/GI:Soft, Non tender, Bowel sounds present Extremities/Musculoskeletal:normal inspection, B/L LE edema L>R Neurologic/Psych:AAOX3, grossly no focal neurological deficits Skin: normal color, warm Results & Data Results & Data Vital Signs (Past 12 Hours) Vital Signs Temp Pulse Resp BP Pulse Ox O2 Del Method 10/26/22 12:59 Room Air 10/26/22 07:10 36.6 C 74 18 124/69 94 Room Air Laboratory Results Short CBC 10/25/22 10/26/22 Range/Units 17:13 05:57 WBC 4.66 L 4.48 L (4.8-10.8) K/ul Hgb 12.7 L 12.9 L (14.0-18.0) g/dl Hct 37.2 L 35.9 L (42.0-52.0) % Plt Count 133 136 (130-400) K/uL BMP 10/25/22 10/26/22 17:13 05:57 Sodium 131 L 134 L Potassium 3.7 3.5 Chloride 100 99 Carbon Dioxide 23 25 BUN 18 20 Creatinine 1.13 1.12 Glucose 143 H 98 Calcium 9.0 9.1 Liver Function 10/25/22 Range/Units 17:13 Total Bilirubin 0.7 (0.2-1.0) mg/dl AST 29 (13-39) U/L ALT 36 (7-52) U/L Alkaline Phosphatase 150 H (34-104) U/L Albumin 3.8 (3.4-5.0) gm/dl Urine 10/25/22 Range/Units 23:08 Urine Color Yellow Urine Appearance Clear (Clear) Urine pH 5.5 (4.5-7.5) Ur Specific [place] 1.012 (1.000-1.030) Urine Protein Trace H (Negative) Urine Glucose (UA) Negative (Negative)
[2022-10-26] MEDS: SPIRONOLACTONE 12.5 MG TAB PO SCH (16:58)
[2022-10-26] MEDS: METOPROLOL SUCC 25MG EXT REL TAB PO SCH (20:41)
[2022-10-26] MEDS: DOXAZosin MESYLATE 4 MG TAB PO SCH (20:41)
[2022-10-26] MEDS: HEPARIN SOD 5,000 UNIT/0.5 ML VIAL SQ SCH (20:42)
[2022-10-26] MEDS: ROSUVASTATIN CALCIUM 5 MG TAB PO SCH (20:42)
[2022-10-27 05:26] LABS: BUN Creatinine Ratio 19.8 (10-20); Calcium 8.8 mg/dl (8.6-10.3); Creatinine Clr Calc Pharmacy 61.9 ml/min; Est GFR (African American) 79.9 ml/min; Est GFR (Non-African American) 68.9 ml/min; Magnesium 1.9 mg/dl (1.7-2.4)
[2022-10-27] MEDS ORDERED: POTASSIUM CHLORIDE PWD 20 MEQ PACK PO STA (05:49)
[2022-10-27] MEDS ORDERED: MAGNESIUM SULFATE / D5W 1 GM/100 ML BAG IV ONE (06:15)
[2022-10-27 06:17] LABS: Hematocrit (blood only) 36.1 % (42.0-52.0); Hemoglobin 12.2 g/dl (14.0-18.0); Mean Corpuscular Hemoglobin 30.5 pg (25.0-34.0); Mean Corpuscular Hgb Conc 33.8 g/dL (32.0-36.0); Mean Corpuscular Volume 90.3 fL (80.0-100.0); Mean Platelet Volume 10.2 fL (9.4-12.4); Platelet Count 113 K/uL (130-400); RDW Coefficient of Variation 13.9 % (11.5-14.5); RDW Standard Deviation 45.7 fL (36.4-46.3); White Blood Count 4.15 K/ul (4.8-10.8)
[2022-10-27] MEDS ORDERED: POTASSIUM CHLORIDE PWD 20 MEQ PACK PO ONE (08:00)
[2022-10-27] MEDS: INSULIN ASPART PER UNIT CHARGE SC SCH ×4 (08:32→20:31)
[2022-10-27] MEDS: amLODIPine BESYLATE 5 MG TAB PO SCH (08:35)
[2022-10-27] MEDS: CYANOCOBALAMIN (B-12) 500 MCG TABLET PO SCH (08:36)
[2022-10-27] MEDS: ASPIRIN 81 MG ECTAB PO SCH (08:36)
[2022-10-27] MEDS: EZETIMIBE 10 MG TABLET PO SCH (08:37)
[2022-10-27] MEDS: FINASTERIDE 5 MG TAB PO SCH (08:37)
[2022-10-27] MEDS: FLUTICASONE PROPIONATE NA SPR 16 GM BTL SCH (08:37)
[2022-10-27] MEDS: HEPARIN SOD 5,000 UNIT/0.5 ML VIAL SQ SCH ×2 (08:38→20:33)
[2022-10-27] MEDS: LOSARTAN POTASSIUM 50 MG TAB PO SCH (08:38)
[2022-10-27] MEDS: SPIRONOLACTONE 12.5 MG TAB PO SCH (08:39)
[2022-10-27] MEDS: METOPROLOL SUCC 50MG EXT REL TAB PO SCH (08:39)
[2022-10-27] MEDS: UMECLIDINIUM/VILANTEROL 62.5/25MCG 7 PUFFS/INHALER INH SCH (08:39)
[2022-10-27] MEDS ORDERED: FUROSEMIDE 40 MG/4 ML VIAL IV ONE (11:03)
[2022-10-27] MEDS ORDERED: SPIRONOLACTONE 12.5 MG TAB PO ONE (11:05)
--- NOTE | 2022-10-27 11:11 | Cardiology Progress Note ---
Date of Service October 27, 2022 Assessment & Plan (1) Acute CHF (congestive heart failure): (2) Hx of mitral valve repair: (3) Pulmonary fibrosis: (4) Pacemaker: Plan Patient is a an 82-year-old male with complex history as noted. Carries an underlying concern of prior remote mitral valve repair, chronic stable ischemic heart disease status post coronary invention for single-vessel disease 2019, indwelling dual-chamber permanent pacemaker with chronic frequent ventricular ec topy He presents now with signs and symptoms of progressive fluid retention over the past several weeks and exam consistent with right heart failure greater than left LV systolic function is mildly reduced in comparison to prior studies but frequent ventricular ectopy present Impression: 1. Acute systolic and diastolic heart failure right greater than left with mildly reduced LV systolic function: We will continue IV diuretics following renal function closely consider adding spironolactone as part of course. 2. Chronic ischemic heart disease no symptoms to suggest acute coronary syndrome 3. Massive pulmonary fibrosis currently without oxygen demands no may be contributing to right heart concerns 4. Frequent ventricular ectopy which do not appear to have reduced with increase beta-kieran therapy and with increased pacing. We will reduce p.m. dose of metoprolol 10/27/2022 Congestive heart failure improving symptomatically. Potassium low this morning and has been replete Plan continue IV furosemide 40 mg twice per day additional 2 to 3 doses. Increase spironolactone to 25 mg p.o. daily Nocturnal oximetry prior to discharge assess need for oxygen supplementation given underlying pulmonary issues Admission and Anticipated Discharge Date Admission Date: October 25, 2022 Subjective Patient was seen and examined, chart, medications, telemetry reviewed. Feels improved this morning. No chest pains or shortness of breath. Notes leg edema has improved. No fevers or chills. Better oxygenation Review of Systems Review of Systems: All systems reviewed & are unremarkable except as noted in Subjective Physical Exam Constitutional: well developed and well nourished; no acute distress Eyes: PERRL, conjunctivae normal, anicteric sclerae ENMT: external ear and nose normal, oropharynx normal Neck: trachea midline, no thyromegaly Respiratory: Auscultation: + diminished lung sounds and + rales Cardiovascular: Rate/Rhythm: regular rate and regular rhythm (With frequent ventricular ectopy, bigeminy) Heart Sounds: no murmur Vessels: + JVD Extremities: + edema Chest (Breasts): Chest: + pacemaker Gastrointestinal (Abdomen): Inspection/Auscultation: + abdomen distended Percussion/Palpation: abdomen nontender Musculoskeletal: no cyanosis or clubbing, extremities motor strength 5/5 Neurologic: PERRL, EOMI, accommodation nl, no face palsy, no dysarthria Results & Data Vital Signs (Past 12 Hours) Vital Signs Temp Pulse Pulse Resp BP Pulse Ox Pulse Ox 10/27/22 08:00 10/27/22 08:31 36.3 C L 73 18 148/107 H 96 10/27/22 03:52 36.5 C 72 18 131/70 93 10/27/22 00:00 97 10/26/22 23:27 67 O2 Del Method O2 Del Method O2 Flow Rate O2 Flow Rate 10/27/22 08:00 Nasal Cannula 2 10/27/22 08:31 Room Air 10/27/22 03:52 Room Air 10/27/22 00:00 Nasal Cannula 2 10/26/22 23:27 Laboratory Results Laboratory Results - last 24 hr 10/26/22 10/26/22 10/26/22 11:54 17:01 20:58 WBC RBC Hgb Hct MCV MCH MCHC RDW Std Deviation RDW Coeff of Tyrell Plt Count MPV Sodium Potassium Chloride Carbon Dioxide Anion Gap BUN Creatinine Est Cr Clr Drug Dosing Est GFR ( Amer) Est GFR (Non-Af Amer) BUN/Creatinine Ratio Glucose POC Glucose 115 H 94 69 L* Calcium Magnesium 10/26/22 10/26/22 10/27/22 21:01 21:19 00:13 WBC RBC Hgb Hct MCV MCH MCHC RDW Std Deviation RDW Coeff of Tyrell Plt Count MPV Sodium Potassium Chloride Carbon Dioxide Anion Gap BUN Creatinine Est Cr Clr Drug Dosing Est GFR ( Amer) Est GFR (Non-Af Amer) BUN/Creatinine Ratio Glucose POC Glucose 82 84 100 H Calcium Magnesium 10/27/22 10/27/22 10/27/22 04:43 04:43 08:19 WBC 4.15 L RBC 4.00 L Hgb 12.2 L Hct 36.1 L MCV 90.3 MCH 30.5 MCHC 33.8 RDW Std Deviation 45.7 RDW Coeff of Tyrell 13.9 Plt Count 113 L MPV 10.2 Sodium 136 Potassium 3.0 L Chloride 99 Carbon Dioxide 28 Anion Gap 9 BUN 20 Creatinine 1.01 Est Cr Clr Drug Dosing 61.9 Est GFR ( Amer) 79.9 Est GFR (Non-Af Amer) 68.9 BUN/Creatinine Ratio 19.8 Glucose 99 POC Glucose 130 H Calcium 8.8 Magnesium 1.9
[2022-10-27] MEDS: FUROSEMIDE 40 MG/4 ML VIAL IV SCH (16:50)
--- NOTE | 2022-10-27 17:02 | Hospitalist Progress Note ---
Date of Service October 27, 2022 Assessment & Plan (1) Shortness of breath: (2) CAD (coronary artery disease): (3) Third degree heart block: (4) Pacemaker: (5) Diabetes mellitus, type II: (6) HTN (hypertension): (7) Dyslipidemia: (8) Pulmonary fibrosis: (9) BPH (benign prostatic hyperplasia): Plan: Acute systolic and diastolic heart failure --CXR:Cardiomegaly and cardiac pacemaker without radiographic evidence of congestive failure. Chronic parenchymal changes suggestive of progressive massive fibrosis are similar to prior studies. There is no evidence of superimposed airspace consolidation. Suspect small pleural effusions. --ECHO: Rhythm is ventricular paced with frequent ventricular ectopy and bigeminy. Left ventricle is normal in size. Moderate concentric LVH. Septal motion is consistent with conduction abnormality. Apical wall motion abnormality may reflect pacemaker activation. Moderate global hypokinesis of left ventricle. EF 40 to 45%. Right ventricle is mildly dilated. Aortic valve sclerosis mild, without significant aortic valvular stenosis. Annuloplasty ring is noted in the mitral position. Posterior mitral leaflet is thickened and fixed consistent with prior mitral valve repair surgery. No mitral valve s tenosis. Mild tricuspid regurgitation. Right ventricular systolic pressure is elevated at 40 to 50 mmHg. --Venous Doppler:Normal bilateral lower extremity duplex venous ultrasound. --ABD USD:There is small volume ascites. -- Continue IV diuresis as per cardiology Appreciate cardiology input Monitor volume status, I's and O's, daily weight Pacemaker interrogation requested Monitor renal function, electrolytes Spironolactone added Metoprolol dose decreased as per cardiology. Monitor and replace electrolytes as needed Will obtain nocturnal oximetry study COPD/RLD/pulmonary fibrosis/pneumoconiosis Continue home inhalers No signs of exacerbation Saturating low 90s on room air H/O NSVT, PVCs H.O pacemaker dysfunction H/O high degree AV block sp PPM Continue metoprolol Continue management per cardiology Mild hyponatremia Likely secondary to HCTZ, volume overload Monitor sodium levels Normocytic anemia ? dilutional secondary to fluid retention FOBT negative Anemia work-up negative Moitor CBC CAD S/P stent H/O mitral valve repair Hypertension Hyperlipidemia Continue current medications DM II Hold PO meds HbA1c of 6.10 September 2022 Continue insulin per protocol DVT Px: Heparin SQ Code Status Full Code Admission and Anticipated Discharge Date Admission Date: October 25, 2022 Subjective Patient is seen and examined at bedside States feeling better today No significant dyspnea Leg edema," tightness" improving Diuresing well Denies any chest pain, dizziness, nausea, abdominal pain Review of Systems Review of Systems: All systems reviewed & are unremarkable except as noted in Subjective Physical Exam Physical Exam: Physical Exam: Vitals signs as noted above General Appearance:Moderately built and nourished, no apparent distress Head: normocephalic, Atraumatic Eyes: normal inspection, EOMI Neck: supple, Trachea midline Respiratory/Chest: Decreased, CTA, No accessory muscle use Cardiovascular: S1, S2, No murmur Abdomen/GI:Soft, Non tender, Bowel sounds present Extremities/Musculoskeletal:normal inspection, B/L LE edema L>R Neurologic/Psych:AAOX3, grossly no focal neurological deficits Skin: normal color, warm Results & Data Results & Data Vital Signs (Past 12 Hours) Vital Signs Temp Pulse Resp BP Pulse Ox Pulse Ox Pulse Ox 10/27/22 16:11 36.4 C L 56 L 18 125/66 92 10/27/22 13:43 97 95 10/27/22 11:30 36.5 C 74 18 107/67 95 10/27/22 08:00 10/27/22 08:31 36.3 C L 73 18 148/107 H 96 O2 Del Method O2 Flow Rate O2 Flow Rate O2 Flow Rate 10/27/22 16:11 Room Air 10/27/22 13:43 0 0 10/27/22 11:30 Room Air 10/27/22 08:00 Nasal Cannula 2 10/27/22 08:31 Room Air Laboratory Results Short CBC 10/27/22 Range/Units 04:43 WBC 4.15 L (4.8-10.8) K/ul Hgb 12.2 L (14.0-18.0) g/dl Hct 36.1 L (42.0-52.0) % Plt Count 113 L (130-400) K/uL BMP 10/27/22 04:43 Sodium 136 Potassium 3.0 L Chloride 99 Carbon Dioxide 28 BUN 20 Creatinine 1.01 Glucose 99 Calcium 8.8
[2022-10-27] MEDS: DOXAZosin MESYLATE 4 MG TAB PO SCH (20:33)
[2022-10-27] MEDS: METOPROLOL SUCC 25MG EXT REL TAB PO SCH (20:33)
[2022-10-27] MEDS: ROSUVASTATIN CALCIUM 5 MG TAB PO SCH (20:34)
[2022-10-27] MEDS: POTASSIUM CHLORIDE 10 MEQ TABCR PO SCH (20:38)
[2022-10-27] MEDS ORDERED: BENZONATATE 100 MG CAPSULE PO PRN (22:35)
[2022-10-27] MEDS ORDERED: SODIUM CHLORIDE 0.65% NA SOLN 45 ML (OCEAN) PRN (22:35)
[2022-10-28 07:32] LABS: BUN Creatinine Ratio 19.8 (10-20); Calcium 9.1 mg/dl (8.6-10.3); Creatinine Clr Calc Pharmacy 49.6 ml/min; Est GFR (African American) 61.2 ml/min; Est GFR (Non-African American) 52.8 ml/min; Potassium 4.1 mmol/L (3.5-5.1)
[2022-10-28 07:51] LABS: Hematocrit (blood only) 38.8 % (42.0-52.0); Hemoglobin 12.9 g/dl (14.0-18.0); Mean Corpuscular Hemoglobin 30.4 pg (25.0-34.0); Mean Corpuscular Hgb Conc 33.2 g/dL (32.0-36.0); Mean Corpuscular Volume 91.3 fL (80.0-100.0); Mean Platelet Volume 10.2 fL (9.4-12.4); Platelet Count 125 K/uL (130-400); Platelet Estimate Decreased (Normal); RDW Coefficient of Variation 14.1 % (11.5-14.5); RDW Standard Deviation 46.8 fL (36.4-46.3); Red Blood Count 4.25 M/uL (4.70-6.10); White Blood Count 5.54 K/ul (4.8-10.8)
[2022-10-28] MEDS: INSULIN ASPART PER UNIT CHARGE SC SCH ×4 (08:06→20:53)
[2022-10-28] MEDS: amLODIPine BESYLATE 5 MG TAB PO SCH (08:23)
[2022-10-28] MEDS: ASPIRIN 81 MG ECTAB PO SCH (08:24)
[2022-10-28] MEDS: CYANOCOBALAMIN (B-12) 500 MCG TABLET PO SCH (08:25)
[2022-10-28] MEDS: EZETIMIBE 10 MG TABLET PO SCH (08:25)
[2022-10-28] MEDS: FINASTERIDE 5 MG TAB PO SCH (08:26)
[2022-10-28] MEDS: FLUTICASONE PROPIONATE NA SPR 16 GM BTL SCH (08:26)
[2022-10-28] MEDS: HEPARIN SOD 5,000 UNIT/0.5 ML VIAL SQ SCH ×2 (08:27→20:53)
[2022-10-28] MEDS: FUROSEMIDE 40 MG/4 ML VIAL IV SCH (08:27)
[2022-10-28] MEDS: LOSARTAN POTASSIUM 50 MG TAB PO SCH (08:27)
[2022-10-28] MEDS: METOPROLOL SUCC 50MG EXT REL TAB PO SCH (08:27)
[2022-10-28] MEDS: POTASSIUM CHLORIDE 10 MEQ TABCR PO SCH ×2 (08:28→20:53)
[2022-10-28] MEDS: UMECLIDINIUM/VILANTEROL 62.5/25MCG 7 PUFFS/INHALER INH SCH (08:29)
[2022-10-28] MEDS: SPIRONOLACTONE 12.5 MG TAB PO SCH (08:29)
--- NOTE | 2022-10-28 09:45 | Cardiology Progress Note ---
Date of Service October 28, 2022 Assessment & Plan (1) Acute CHF (congestive heart failure): (2) Hx of mitral valve repair: (3) Pulmonary fibrosis: (4) Pacemaker: Plan Patient is a an 82-year-old male with complex history as noted. Carries an underlying concern of prior remote mitral valve repair, chronic stable ischemic heart disease status post coronary invention for single-vessel disease 2019, indwelling dual-chamber permanent pacemaker with chronic frequent ventricular ec topy He presents now with signs and symptoms of progressive fluid retention over the past several weeks and exam consistent with right heart failure greater than left LV systolic function is mildly reduced in comparison to prior studies but frequent ventricular ectopy present Impression: 1. Acute systolic and diastolic heart failure right greater than left with mildly reduced LV systolic function: We will continue IV diuretics following renal function closely consider adding spironolactone as part of course. 2. Chronic ischemic heart disease no symptoms to suggest acute coronary syndrome 3. Massive pulmonary fibrosis currently without oxygen demands no may be contributing to right heart concerns 4. Frequent ventricular ectopy which do not appear to have reduced with increase beta-kieran therapy and with increased pacing. We will reduce p.m. dose of metoprolol 10/28/2022 Congestive heart failure improving symptomatically. Weight down substantially Continue slightly reduced metoprolol succinate dosing. No change in ventricular ectopy, bigeminy Plan discontinue IV furosemide. Increase spironolactone to 25 mg p.o. daily Begin furosemide 40 mg p.o. twice daily Will need oxygen nocturnally Admission and Anticipated Discharge Date Admission Date: October 25, 2022 Subjective Patient seen and examined, chart, medications, telemetry reviewed. Lower extremity edema and shortness of breath improved. Left leg still more edematous than right, venous duplex negative. Weight down 4 to 6 kg since admission. Renal function tolerating diuretics Nocturnal oximetry performed last night with noted hypoxia Rhythm on telemetry paced, with ventricular bigeminy Review of Systems Review of Systems: All systems reviewed & are unremarkable except as noted in Subjective Physical Exam Constitutional: well developed and well nourished; no acute distress Eyes: PERRL, conjunctivae normal, anicteric sclerae ENMT: external ear and nose normal, oropharynx normal Neck: trachea midline, no thyromegaly Respiratory: Auscultation: + diminished lung sounds Cardiovascular: Rate/Rhythm: regular rate and regular rhythm (With frequent ventricular ectopy, bigeminy) Heart Sounds: no murmur Extremities: + edema (Trace to 1+ left greater than right, improved) Chest (Breasts): Chest: + pacemaker Gastrointestinal (Abdomen): Inspection/Auscultation: + abdomen distended Percussion/Palpation: abdomen nontender Musculoskeletal: no cyanosis or clubbing, extremities motor strength 5/5 Neurologic: PERRL, EOMI, accommodation nl, no face palsy, no dysarthria Results & Data Vital Signs (Past 12 Hours) Vital Signs Temp Pulse Pulse Pulse Resp BP BP 10/28/22 08:00 10/28/22 07:48 36.4 C L 76 16 138/74 10/28/22 03:40 10/28/22 03:56 36.5 C 76 20 107/62 10/28/22 01:21 72 10/27/22 22:57 36.6 C 73 22 123/62 10/27/22 22:45 72 Pulse Ox Pulse Ox O2 Del Method O2 Del Method O2 Flow Rate O2 Flow Rate 10/28/22 08:00 Nasal Cannula 2 10/28/22 07:48 100 Nasal Cannula 3 10/28/22 03:40 91 Nasal Cannula 3 10/28/22 03:56 95 Nasal Cannula 3 10/28/22 01:21 10/27/22 22:57 93 Room Air 10/27/22 22:45 94 Room Air Laboratory Results Laboratory Results - last 24 hr 10/27/22 10/27/22 10/27/22 12:17 16:59 20:26 WBC RBC Hgb Hct MCV MCH MCHC RDW Std Deviation RDW Coeff of Tyrell Plt Count MPV Platelet Estimate Sodium Potassium Chloride Carbon Dioxide Anion Gap BUN Creatinine Est Cr Clr Drug Dosing Est GFR ( Amer) Est GFR (Non-Af Amer) BUN/Creatinine Ratio Glucose POC Glucose 114 H 90 121 H Calcium 10/28/22 10/28/22 10/28/22 05:47 05:47 07:34 WBC 5.54 RBC 4.25 L Hgb 12.9 L Hct 38.8 L MCV 91.3 MCH 30.4 MCHC 33.2 RDW Std Deviation 46.8 H RDW Coeff of Tyrell 14.1 Plt Count 125 L MPV 10.2 Platelet Estimate Decreased L Sodium 138 Potassium 4.1 D Chloride 101 Carbon Dioxide 28 Anion Gap 9 BUN 25 H Creatinine 1.26 Est Cr Clr Drug Dosing 49.6 Est GFR ( Amer) 61.2 Est GFR (Non-Af Amer) 52.8 BUN/Creatinine Ratio 19.8 Glucose 98 POC Glucose 116 H Calcium 9.1
--- NOTE | 2022-10-28 13:50 | Ultrasound Report ---
BILATERAL LOWER EXTREMITY ARTERIAL DOPPLER ULTRASOUND CLINICAL HISTORY: Leg swelling, ? PAD COMPARISON STUDY: No previous studies for comparison. TECHNIQUE: Bilateral ankle to brachial indices were obtained. Grayscale, color and duplex Doppler son ography of the arterial systems of the lower extremities was then performed. FINDINGS: Right ankle-brachial index measured 1.19 when using the dorsalis pedis and 1.25 when using posterior tibial artery. The left ankle to brachial index measured 1.42 when using the dorsalis pedis and 1.35 when using posterior tibial artery. These may be artifactually elevated. There is mild athe rosclerotic plaque within the lower extremities. No elevated velocities within the right lower extrem ity were noted. There is an elevated peak systolic velocity of 373 cm/s within the left anterior tibi al artery. No additional elevated velocities were noted. There was biphasic and triphasic flow throug hout the lower extremity. IMPRESSION: 1. Mild atherosclerotic plaque within the lower extremities. No vessel occlusion identified. High no rmal ankle to brachial indices which may be artifactually elevated. 2. Suspected stenosis within the left anterior tibial artery. No additional elevated velocities. 3. Triphasic and biphasic flow throughout the lower extremities. ACT 112: Negative or not required by law. Electronically signed by: Deigo Sharif M.D. 10/28/2022 1:48 PM
[2022-10-28] MEDS: FUROSEMIDE 40 MG TAB PO SCH (17:04)
--- NOTE | 2022-10-28 18:41 | Hospitalist Progress Note ---
Date of Service October 28, 2022 Assessment & Plan (1) Shortness of breath: (2) CAD (coronary artery disease): (3) Third degree heart block: (4) Pacemaker: (5) Diabetes mellitus, type II: (6) HTN (hypertension): (7) Dyslipidemia: (8) Pulmonary fibrosis: (9) BPH (benign prostatic hyperplasia): Plan: Acute systolic and diastolic heart failure --CXR:Cardiomegaly and cardiac pacemaker without radiographic evidence of congestive failure. Chronic parenchymal changes suggestive of progressive massive fibrosis are similar to prior studies. There is no evidence of superimposed airspace consolidation. Suspect small pleural effusions. --ECHO: Rhythm is ventricular paced with frequent ventricular ectopy and bigeminy. Left ventricle is normal in size. Moderate concentric LVH. Septal motion is consistent with conduction abnormality. Apical wall motion abnormality may reflect pacemaker activation. Moderate global hypokinesis of left ventricle. EF 40 to 45%. Right ventricle is mildly dilated. Aortic valve sclerosis mild, without significant aortic valvular stenosis. Annuloplasty ring is noted in the mitral position. Posterior mitral leaflet is thickened and fixed consistent with prior mitral valve repair surgery. No mitral valve s tenosis. Mild tricuspid regurgitation. Right ventricular systolic pressure is elevated at 40 to 50 mmHg. --Venous Doppler:Normal bilateral lower extremity duplex venous ultrasound. --ABD USD:There is small volume ascites. --Received IV lasix Appreciate cardiology input Monitor volume status, I's and O's, daily weight Pacemaker interrogation requested Monitor renal function, electrolytes Spironolactone added Metoprolol dose decreased as per cardiology. Continue metoprolol succinate 50 mg QAM and 25 mg QPM Monitor and replace electrolytes as needed Diuresing well IV Lasix transition to p.o. Aldactone increased to 25 mg daily Needs follow-up with cardiology upon discharge Nocturnal hypoxia Nocturnal oximetry reviewed Will discharge on supplemental oxygen Needs sleep study as outpatient Peripheral artery disease --Arterial Doppler:Mild atherosclerotic plaque within the lower extremities. No vessel occlusion identified. High normal ankle to brachial indices which may be artifactually elevated. Suspected stenosis within the left anterior tibial artery. No additional elevated velocities. Triphasic and biphasic flow throughout the lower extremities. -- Advised to follow-up with vascular surgery as outpatient --Continue aspirin Continue Zetia, statin Check lipid panel COPD/RLD/pulmonary fibrosis/pneumoconiosis Continue home inhalers No signs of exacerbation Saturating low 90s on room air H/O NSVT, PVCs H.O pacemaker dysfunction H/O high degree AV block sp PPM Continue metoprolol Continue management per cardiology Mild hyponatremia Likely secondary to HCTZ, volume overload Monitor sodium levels Normocytic anemia ? dilutional secondary to fluid retention FOBT negative Anemia work-up negative Moitor CBC CAD S/P stent H/O mitral valve repair Hypertension Hyperlipidemia Continue current medications DM II Hold PO meds HbA1c of 6.10 September 2022 Continue insulin per protocol DVT Px: Heparin SQ Code Status Full Code Disposition Home as able Admission and Anticipated Discharge Date Admission Date: October 25, 2022 Subjective Patient is seen and examined at bedside Leg edema, dyspnea continues to improve No new complaints Denies any chest pain, dizziness, nausea, abdominal pain Review of Systems Review of Systems: All systems reviewed & are unremarkable except as noted in Subjective Physical Exam Physical Exam: Physical Exam: Vitals signs as noted above General Appearance:Moderately built and nourished, no apparent distress Head: normocephalic, Atraumatic Eyes: normal inspection, EOMI Neck: supple, Trachea midline Respiratory/Chest: Decreased, CTA, No accessory muscle use Cardiovascular: S1, S2, No murmur Abdomen/GI:Soft, Non tender, Bowel sounds present Extremities/Musculoskeletal:normal inspection, B/L LE edema L>R Neurologic/Psych:AAOX3, grossly no focal neurological deficits Skin: normal color, warm Results & Data Results & Data Vital Signs (Past 12 Hours) Vital Signs Temp Pulse Resp BP Pulse Ox O2 Del Method O2 Flow Rate 10/28/22 16:13 36.7 C 65 18 129/82 96 Nasal Cannula 2 10/28/22 12:03 36.6 C 71 18 121/59 L 97 Nasal Cannula 2 10/28/22 08:00 Nasal Cannula 2 10/28/22 07:48 36.4 C L 76 16 138/74 100 Nasal Cannula 3 Laboratory Results Short CBC 10/28/22 Range/Units 05:47 WBC 5.54 (4.8-10.8) K/ul Hgb 12.9 L (14.0-18.0) g/dl Hct 38.8 L (42.0-52.0) % Plt Count 125 L (130-400) K/uL BMP 10/28/22 05:47 Sodium 138 Potassium 4.1 D Chloride 101 Carbon Dioxide 28 BUN 25 H Creatinine 1.26 Glucose 98 Calcium 9.1
[2022-10-28] MEDS ORDERED: LORATADINE 10 MG TAB PO ONE (20:09)
[2022-10-28] MEDS ORDERED: guaiFENesin SUGAR FREE 200 MG/10 ML UDC PO PRN (20:09)
[2022-10-28] MEDS: DOXAZosin MESYLATE 4 MG TAB PO SCH (20:52)
[2022-10-28] MEDS: ROSUVASTATIN CALCIUM 5 MG TAB PO SCH (20:52)
[2022-10-28] MEDS: METOPROLOL SUCC 25MG EXT REL TAB PO SCH (20:52)
[2022-10-29 07:09] LABS: BUN Creatinine Ratio 24.4 (10-20); Calcium 8.9 mg/dl (8.6-10.3); Chol HDL Ratio 2.1 (0-5); Creatinine Clr Calc Pharmacy 52.5 ml/min; Est GFR (African American) 65.5 ml/min; Est GFR (Non-African American) 56.5 ml/min; Potassium 3.7 mmol/L (3.5-5.1)
[2022-10-29] MEDS: EZETIMIBE 10 MG TABLET PO SCH (08:33)
[2022-10-29] MEDS: CYANOCOBALAMIN (B-12) 500 MCG TABLET PO SCH (08:33)
[2022-10-29] MEDS: FINASTERIDE 5 MG TAB PO SCH (08:33)
[2022-10-29] MEDS: LOSARTAN POTASSIUM 50 MG TAB PO SCH (08:34)
[2022-10-29] MEDS: ASPIRIN 81 MG ECTAB PO SCH (08:34)
[2022-10-29] MEDS: HEPARIN SOD 5,000 UNIT/0.5 ML VIAL SQ SCH (08:34)
[2022-10-29] MEDS: FLUTICASONE PROPIONATE NA SPR 16 GM BTL SCH (08:34)
[2022-10-29] MEDS: FUROSEMIDE 40 MG TAB PO SCH (08:34)
[2022-10-29] MEDS: POTASSIUM CHLORIDE 10 MEQ TABCR PO SCH (08:34)
[2022-10-29] MEDS: amLODIPine BESYLATE 5 MG TAB PO SCH (08:35)
[2022-10-29] MEDS: METOPROLOL SUCC 50MG EXT REL TAB PO SCH (08:35)
[2022-10-29] MEDS: UMECLIDINIUM/VILANTEROL 62.5/25MCG 7 PUFFS/INHALER INH SCH (08:35)
[2022-10-29] MEDS: INSULIN ASPART PER UNIT CHARGE SC SCH ×2 (08:47→13:14)
[2022-10-29] MEDS ORDERED: SPIRONOLACTONE 25 MG TAB PO SCH (09:00)
--- NOTE | 2022-10-29 12:03 | Cardiology Progress Note ---
Date of Service October 29, 2022 Assessment & Plan (1) Acute CHF (congestive heart failure): (2) Hx of mitral valve repair: (3) Pulmonary fibrosis: (4) Pacemaker: Plan Patient is a an 82-year-old male with complex history as noted. Carries an underlying concern of prior remote mitral valve repair, chronic stable ischemic heart disease status post coronary invention for single-vessel disease 2019, indwelling dual-chamber permanent pacemaker with chronic frequent ventricular ec topy He presents now with signs and symptoms of progressive fluid retention over the past several weeks and exam consistent with right heart failure greater than left LV systolic function is mildly reduced in comparison to prior studies but frequent ventricular ectopy present Impression: 1. Acute systolic and diastolic heart failure right greater than left with mildly reduced LV systolic function: 2. Chronic ischemic heart disease no symptoms to suggest acute coronary syndrome 3. Massive pulmonary fibrosis 4. Frequent ventricular ectopy which do not appear to have reduced with increase beta-kieran therapy and with increased pacing. 10/29/2022 Congestive heart failure right greater than left improved with medication adjustment Continue slightly reduced metoprolol succinate dosing. No change in ventricular ectopy, bigeminy Continue oral furosemide at 40 mg twice per day, spironolactone to 25 mg p.o. daily Will need oxygen nocturnally Outpatient cardiology follow-up 3 to 4-week Admission and Anticipated Discharge Date Admission Date: October 25, 2022 Subjective Patient seen and examined, chart, medications, telemetry reviewed. Continues to demonstrate improvement since admission. No chest pain shortness of breath. Was ambulatory in hallway. Review of Systems Review of Systems: All systems reviewed & are unremarkable except as noted in Subjective Physical Exam Constitutional: well developed and well nourished; no acute distress Eyes: PERRL, conjunctivae normal, anicteric sclerae ENMT: external ear and nose normal, oropharynx normal Neck: trachea midline, no thyromegaly Respiratory: Auscultation: + diminished lung sounds and + rales Cardiovascular: Rate/Rhythm: regular rate and regular rhythm (With frequent ventricular ectopy, bigeminy) Heart Sounds: no murmur Vessels: + JVD Extremities: + edema (Trace to 1+ left greater than right, improved) Chest (Breasts): Chest: + pacemaker Gastrointestinal (Abdomen): Inspection/Auscultation: + abdomen distended Percussion/Palpation: abdomen nontender Musculoskeletal: no cyanosis or clubbing, extremities motor strength 5/5 Neurologic: PERRL, EOMI, accommodation nl, no face palsy, no dysarthria Results & Data Vital Signs (Past 12 Hours) Vital Signs Temp Pulse Pulse Pulse Pulse Resp Resp 10/29/22 08:00 10/29/22 09:08 92 H 92 H 77 18 10/29/22 08:10 36.4 C L 83 17 10/29/22 03:54 36.4 C L 63 12 Resp Resp BP BP Pulse Ox Pulse Ox Pulse Ox 10/29/22 08:00 10/29/22 09:08 16 16 93 92 10/29/22 08:10 128/70 92 10/29/22 03:54 115/67 94 Pulse Ox O2 Del Method O2 Flow Rate 10/29/22 08:00 Room Air 10/29/22 09:08 93 10/29/22 08:10 Nasal Cannula 2 10/29/22 03:54 Nasal Cannula 1 Laboratory Results Laboratory Results - last 24 hr 10/28/22 10/28/22 10/29/22 16:34 20:06 06:09 Sodium 138 Potassium 3.7 Chloride 101 Carbon Dioxide 29 Anion Gap 8 BUN 29 H Creatinine 1.19 Est Cr Clr Drug Dosing 52.5 Est GFR ( Amer) 65.5 Est GFR (Non-Af Amer) 56.5 BUN/Creatinine Ratio 24.4 H Glucose 98 POC Glucose 117 H 163 H Calcium 8.9 Magnesium 2.0 Triglycerides 54 Cholesterol 80 LDL Cholesterol, Calc 31 VLDL Cholesterol, Calc 11 HDL Cholesterol 38 Cholesterol/HDL Ratio 2.1 10/29/22 10/29/22 07:58 11:40 Sodium Potassium Chloride Carbon Dioxide Anion Gap BUN Creatinine Est Cr Clr Drug Dosing Est GFR ( Amer) Est GFR (Non-Af Amer) BUN/Creatinine Ratio Glucose POC Glucose 113 H 110 H Calcium Magnesium Triglycerides Cholesterol LDL Cholesterol, Calc VLDL Cholesterol, Calc HDL Cholesterol Cholesterol/HDL Ratio
--- NOTE | 2022-10-29 13:04 | Hospitalist Progress Note ---
Date of Service October 29, 2022 Assessment & Plan (1) Shortness of breath: (2) CAD (coronary artery disease): (3) Third degree heart block: (4) Pacemaker: (5) Diabetes mellitus, type II: (6) HTN (hypertension): (7) Dyslipidemia: (8) Pulmonary fibrosis: (9) BPH (benign prostatic hyperplasia): Plan: Acute systolic and diastolic heart failure --CXR:Cardiomegaly and cardiac pacemaker without radiographic evidence of congestive failure. Chronic parenchymal changes suggestive of progressive massive fibrosis are similar to prior studies. There is no evidence of superimposed airspace consolidation. Suspect small pleural effusions. --ECHO: Rhythm is ventricular paced with frequent ventricular ectopy and bigeminy. Left ventricle is normal in size. Moderate concentric LVH. Septal motion is consistent with conduction abnormality. Apical wall motion abnormality may reflect pacemaker activation. Moderate global hypokinesis of left ventricle. EF 40 to 45%. Right ventricle is mildly dilated. Aortic valve sclerosis mild, without significant aortic valvular stenosis. Annuloplasty ring is noted in the mitral position. Posterior mitral leaflet is thickened and fixed consistent with prior mitral valve repair surgery. No mitral valve s tenosis. Mild tricuspid regurgitation. Right ventricular systolic pressure is elevated at 40 to 50 mmHg. --Venous Doppler:Normal bilateral lower extremity duplex venous ultrasound. --ABD USD:There is small volume ascites. --Received IV Lasix Appreciate cardiology input Monitor volume status, I's and O's, daily weight Pacemaker interrogation requested Monitor renal function, electrolytes Spironolactone added Metoprolol dose decreased as per cardiology. Continue metoprolol succinate 50 mg QAM and 25 mg QPM Monitor and replace electrolytes as needed Diuresing well IV Lasix transition to p.o. Aldactone increased to 25 mg daily Needs follow-up with cardiology upon discharge Nocturnal hypoxia Nocturnal oximetry reviewed Will discharge on supplemental oxygen Needs sleep study as outpatient Peripheral artery disease --Arterial Doppler:Mild atherosclerotic plaque within the lower extremities. No vessel occlusion identified. High normal ankle to brachial indices which may be artifactually elevated. Suspected stenosis within the left anterior tibial artery. No additional elevated velocities. Triphasic and biphasic flow throughout the lower extremities. -- Advised to follow-up with vascular surgery as outpatient --Lipid Panel WNL --Continue aspirin Continue Zetia, statin -- Advised to follow-up with vascular surgery upon discharge COPD/RLD/pulmonary fibrosis/pneumoconiosis Continue home inhalers No signs of exacerbation Saturating low 90s on room air 2 step: Did not qualify for supplemental oxygen with activity H/O NSVT, PVCs H.O pacemaker dysfunction H/O high degree AV block sp PPM Continue metoprolol Continue management per cardiology Mild hyponatremia Likely secondary to HCTZ, volume overload Monitor sodium levels Normocytic anemia ? dilutional secondary to fluid retention FOBT negative Anemia work-up negative Monitor CBC CAD S/P stent H/O mitral valve repair Hypertension Hyperlipidemia Continue current medications DM II Hold PO meds HbA1c of 6.10 September 2022 Continue insulin per protocol DVT Px: Heparin SQ Code Status Full Code Disposition Home today Admission and Anticipated Discharge Date Admission Date: October 25, 2022 Subjective Patient is seen and examined at bedside No new complaints Ambulated in hallways, no dyspnea on exertion Left lower extremity edema variable Denies any chest pain, dizziness, nausea, abdominal pain Discussed with cardiology today Review of Systems Review of Systems: All systems reviewed & are unremarkable except as noted in Subjective Physical Exam Physical Exam: Physical Exam: Vitals signs as noted above General Appearance:Moderately built and nourished, no apparent distress Head: normocephalic, Atraumatic Eyes: normal inspection, EOMI Neck: supple, Trachea midline Respiratory/Chest: Decreased, CTA, No accessory muscle use Cardiovascular: S1, S2, No murmur Abdomen/GI:Soft, Non tender, Bowel sounds present Extremities/Musculoskeletal:normal inspection, B/L LE edema L>R Neurologic/Psych:AAOX3, grossly no focal neurological deficits Skin: normal color, warm Results & Data Results & Data Vital Signs (Past 12 Hours) Vital Signs Temp Pulse Pulse Pulse Pulse Resp Resp 10/29/22 12:06 36.3 C L 73 18 10/29/22 08:00 10/29/22 09:08 92 H 92 H 77 18 10/29/22 08:10 36.4 C L 83 17 10/29/22 03:54 36.4 C L 63 12 Resp Resp BP BP Pulse Ox Pulse Ox Pulse Ox 10/29/22 12:06 116/72 95 10/29/22 08:00 10/29/22 09:08 16 16 93 92 10/29/22 08:10 128/70 92 10/29/22 03:54 115/67 94 Pulse Ox O2 Del Method O2 Flow Rate 10/29/22 12:06 Room Air 10/29/22 08:00 Room Air 10/29/22 09:08 93 10/29/22 08:10 Nasal Cannula 2 10/29/22 03:54 Nasal Cannula 1 Laboratory Results BMP 10/29/22 06:09 Sodium 138 Potassium 3.7 Chloride 101 Carbon Dioxide 29 BUN 29 H Creatinine 1.19 Glucose 98 Calcium 8.9
--- NOTE | 2022-10-29 13:15 | Discharge Summary ---
Date of Service October 29, 2022 Admission HPI Per Admitting Provider Patient is 82-year-old male with PMH CAD, third-degree heart block s/p pacemaker, HTN, HLD, history of mitral valve repair, DM II, pulmonary fibrosis, GERD, BPH presented to ER with complaint of shortness of breath x 3-4 weeks. Patient reports exertional shortness of breath with walking. It has progressively worsened over the past 3 to 4 weeks. Denies any associated chest pain, dizziness, palpitations. Patient reports chronic cough in the morning. He states for the past couple of months has had postnasal drip. Patient reports his coughing up clear phlegm. He feels it is coming from postnasal drip. Years past patient had used Flonase, has not used recently. Denies any noted weight changes. Reports some lower extremity edema, feels left is worse than right. States his oh "a while ago". He has noticed some redness. Denies any significant pain. He states past 3-4 weeks he has had bilateral leg weakness with walking. He has not been using nebulizer. Denies fever/chills, diaphoresis, N/V/D/C, BENNETT, dizziness, syncope, neck pain, orthopnea, hemoptysis, sore throat,otalgia, abdominal pain, paresthesias, other rashes, urinary symptoms. Admission Exam Per Admitting Provider General: no distress, WDWN Head: normocephalic, atraumatic Eyes: conjunctiva non-injected, anicteric ENT: normal inspection external ears, nose, mucous membranes moist Neck: supple, trachea midline, non-tender Lungs: clear, no respiratory distress, no wheezing/rhonchi/rales CV: regular rate, regular rhythm with ectopy, no murmur Abd: normal BS, soft, non-tender Ext: no cyanosis, no calf tenderness; RLE: 1-2+pitting edema, LLE: 2+ pitting edema, left lower anterior oh with scab with surrounding erythema, no tenderness to palpation Neuro: A&O x 3, no focal deficits noted, normal affect Skin: warm, dry Principal Diagnosis Acute systolic and diastolic heart failure Nocturnal hypoxia Peripheral artery disease Discharge Data Allergies Allergy/AdvReac Type Severity Reaction Status Date / Time pravastatin [From Pravachol] AdvReac Intermediate Muscle Pain Verified 10/25/22 19:00 Consultations 10/25/22 20:07 ED Decision to Admit Stat 10/26/22 04:59 Consult Cardiology Routine Procedures Performed Laboratory Results WBC 5.54 K/ul (4.8-10.8) 10/28/22 05:47 RBC 4.25 M/uL (4.70-6.10) L 10/28/22 05:47 Hgb 12.9 g/dl (14.0-18.0) L 10/28/22 05:47 Hct 38.8 % (42.0-52.0) L 10/28/22 05:47 MCV 91.3 fL (80.0-100.0) 10/28/22 05:47 MCH 30.4 pg (25.0-34.0) 10/28/22 05:47 MCHC 33.2 g/dL (32.0-36.0) 10/28/22 05:47 RDW Std Deviation 46.8 fL (36.4-46.3) H 10/28/22 05:47 RDW Coeff of Tyrell 14.1 % (11.5-14.5) 10/28/22 05:47 Plt Count 125 K/uL (130-400) L 10/28/22 05:47 MPV 10.2 fL (9.4-12.4) 10/28/22 05:47 Immature Gran % (Auto) 0.2 % 10/26/22 05:57 Neut % (Auto) 68.1 % 10/26/22 05:57 Lymph % (Auto) 17.0 % 10/26/22 05:57 Darke % (Auto) 10.9 % 10/26/22 05:57 Eos % (Auto) 3.1 % 10/26/22 05:57 Baso % (Auto) 0.7 % 10/26/22 05:57 Reticulocyte % (Auto) 1.7 % (0.5-2.0) 10/26/22 05:57 Neut # (Auto) 3.05 K/uL (1.40-6.50) 10/26/22 05:57 Lymph # (Auto) 0.76 K/uL (1.2-3.4) L 10/26/22 05:57 Darke # (Auto) 0.49 K/uL (0.11-0.59) 10/26/22 05:57 Eos # (Auto) 0.14 K/uL (0-0.50) 10/26/22 05:57 Baso # (Auto) 0.03 K/uL (0-0.2) 10/26/22 05:57 Reticulocyte # 0.07 10^6/uL (0.02-0.10) 10/26/22 05:57 Immature Gran # (Auto) 0.01 K/uL (0.01-0.20) 10/26/22 05:57 Platelet Estimate Decreased (Normal) L 10/28/22 05:47 ABG pH 7.46 (7.35-7.45) H 10/26/22 06:56 ABG pCO2 38 mmHg (35-46) 10/26/22 06:56 ABG pO2 72 mmHg (80-95) L 10/26/22 06:56 ABG HCO3 27 mmol/L (19-24) H 10/26/22 06:56 ABG O2 Saturation 96.8 % (90-95) H 10/26/22 06:56 ABG Base Excess 3.1 mEq/L (-9-1.8) H 10/26/22 06:56 Mario Test Pos (Pos) 10/26/22 06:56 VBG pH 7.45 (7.36-7.41) H 10/25/22 18:44 VBG pCO2 39 mmHg (38-50) 10/25/22 18:44 VBG pO2 50 mmHg 10/25/22 18:44 VBG HCO3 27 mmol/L 10/25/22 18:44 VBG O2 Saturation 83.5 % 10/25/22 18:44 VBG Base Excess 3.0 mEq/L 10/25/22 18:44 Barometric Pressure Cancelled 10/26/22 05:57 Oxygen Given room air 10/26/22 06:56 Sodium 138 mmol/L (136-145) 10/29/22 06:09 Potassium 3.7 mmol/L (3.5-5.1) 10/29/22 06:09 Chloride 101 mmol/L (98-107) 10/29/22 06:09 Carbon Dioxide 29 mmol/L (21-32) 10/29/22 06:09 Anion Gap 8 (3-11) 10/29/22 06:09 BUN 29 mg/dl (6-23) H 10/29/22 06:09 Creatinine 1.19 mg/dl (0.6-1.4) 10/29/22 06:09 Est Cr Clr Drug Dosing 52.5 ml/min 10/29/22 06:09 Est GFR ( Amer) 65.5 ml/min 10/29/22 06:09 Est GFR (Non-Af Amer) 56.5 ml/min 10/29/22 06:09 BUN/Creatinine Ratio 24.4 (10-20) H 10/29/22 06:09 Glucose 98 mg/dl (70-99(Fasting)) 10/29/22 06:09 POC Glucose 110 mg/dl (70-99) H 10/29/22 11:40 Osmolality 282 mOsm/kg (280-300) 10/25/22 17:13 Calcium 8.9 mg/dl (8.6-10.3) 10/29/22 06:09 Magnesium 2.0 mg/dl (1.7-2.4) 10/29/22 06:09 Iron 49 mcg/dl (35-175) 10/26/22 05:57 Transferrin 207 mg/dl (200-360) 10/26/22 05:57 Ferritin 202.9 ng/ml (8-388) 10/26/22 05:57 Total Bilirubin 0.7 mg/dl (0.2-1.0) 10/25/22 17:13 AST 29 U/L (13-39) 10/25/22 17:13 ALT 36 U/L (7-52) 10/25/22 17:13 Alkaline Phosphatase 150 U/L (34-104) H 10/25/22 17:13 Troponin I High Sens 8.3 pg/ml (0-20) 10/25/22 17:13 B-Natriuretic Peptide 817 pg/ml (0-100) H 10/25/22 17:13 Total Protein 7.4 gm/dl (6.0-8.3) 10/25/22 17:13 Albumin 3.8 gm/dl (3.4-5.0) 10/25/22 17:13 Globulin 3.6 gm/dl (2.5-4.0) 10/25/22 17:13 Albumin/Globulin Ratio 1.1 (0.9-2) 10/25/22 17:13 Triglycerides 54 mg/dl (0-150) 10/29/22 06:09 Cholesterol 80 mg/dl (0-200) 10/29/22 06:09 LDL Cholesterol, Calc 31 mg/dl 10/29/22 06:09 VLDL Cholesterol, Calc 11 mg/dl (0-30) 10/29/22 06:09 HDL Cholesterol 38 mg/dl 10/29/22 06:09 Cholesterol/HDL Ratio 2.1 (0-5) 10/29/22 06:09 Vitamin B12 > 1500 pg/ml (180-914) H 10/26/22 05:57 Folate 14.98 ng/ml (>5.38) 10/26/22 05:57 TSH 2.479 uIu/ml (0.300-4.500) 10/25/22 17:13 Urine Color Yellow 10/25/22 23:08 Urine Appearance Clear (Clear) 10/25/22 23:08 Urine pH 5.5 (4.5-7.5) 10/25/22 23:08 Ur Specific [place] 1.012 (1.000-1.030) 10/25/22 23:08 Urine Protein Trace (Negative) H 10/25/22 23:08 Urine Glucose (UA) Negative (Negative) 10/25/22 23:08 Urine Ketones Negative (Negative) 10/25/22 23:08 Urine Blood Negative (Negative) 10/25/22 23:08 Urine Nitrite Negative (Negative) 10/25/22 23:08 Urine Bilirubin Negative (Negative) 10/25/22 23:08 Urine Urobilinogen Negative (Negative) 10/25/22 23:08 Ur Leukocyte Esterase Negative (Negative) 10/25/22 23:08 Urine WBC (Auto) 1-5 /hpf (0-5) 10/25/22 23:08 Urine RBC (Auto) 0-4 /hpf (0-4) 10/25/22 23:08 U Hyaline Cast (Auto) 0 /lpf (0-5) 10/25/22 23:08 U Epithel Cells (Auto) 0-5 /lpf (0-5) 10/25/22 23:08 Urine Bacteria (Auto) Negative (Negative) 10/25/22 23:08 Urine Osmolality 368 mOsm/kg (500-800) L 10/25/22 23:08 Ur Random Sodium 46 mmol/L 10/25/22 23:08 SARS-CoV-2 (PCR) NEGATIVE (Negative) 10/25/22 18:42 Influenza Type A (PCR) Negative (Neg) 10/25/22 18:42 Influenza Type B (PCR) Negative (Neg) 10/25/22 18:42 RSV (RT-PCR) Negative (Neg) 10/25/22 18:42 Impressions Chest X-Ray 10/25/22 18:06 SINGLE VIEW CHEST CLINICAL HISTORY: Dyspnea FINDINGS: An AP, portable, upright chest radiograph is compared to study dated 01/24/2019 and correlated with chest CT dated 08/01/2015. A 2-lead cardiac pacemaker is unchanged in position. There is evidence of previous cardiac valve surgery. Epicardial pacing leads are in place. The heart is enlarged. The pulmonary vasculature is noncongested. Chronic interstitial thickening/nodularity with large bilateral upper lobe opacities is unchanged in prior studies. This is consistent with progressive massive fibrosis. Scarring/atelectasis is noted at the lung bases. No superimposed airspace consolidation is identified. Small pleural effusions are suspected. No pneumothorax is seen. The skeletal structures are osteopenic. The bony thorax is grossly intact. IMPRESSION: 1. Cardiomegaly and cardiac pacemaker without radiographic evidence of congestiv e failure. 2. Chronic parenchymal changes suggestive of progressive massive fibrosis are similar to prior studies. 3. There is no evidence of superimposed airspace consolidation. 4. Suspect small pleural effusions. ACT 112: Negative or not required by law. Electronically signed by: Ajay Licea M.D. 10/25/2022 6:28 PM Abdomen Ultrasound 10/25/22 22:36 Exam(s): US ABDOMEN LIMITED EXAM: US Abdomen Limited, Right Upper Quadrant CLINICAL HISTORY: Reason for exam: abd distention. TECHNIQUE: Real-time ultrasound of the right upper quadrant with image documentation. COMPARISON: No relevant prior studies available. FINDINGS: Free fluid: There is small volume ascites. IMPRESSION: There is small volume ascites. Electronically signed by: John Lund MD 10/26/22 02:02 AM Venous Doppler Study 10/25/22 22:37 Exam(s): US VENOUS BILATERAL LOWER EXTREMITIES EXAM: US Duplex Bilateral Lower Extremities Veins CLINICAL HISTORY: Reason for exam: leg swelling. TECHNIQUE: Real-time duplex ultrasound scan of the bilateral lower extremity veins integrating B-mode two-dimensional vascular structure, Doppler spectral analysis, color flow Doppler imaging and compression. COMPARISON: No relevant prior studies available. FINDINGS: Right deep veins: Unremarkable. No DVT in the right common femoral, femoral, proximal deep femoral or popliteal veins. The veins demonstrate normal color flow, are normally compressible, with normal phasic flow and/or augmentation response. Right superficial veins: Unremarkable. No thrombus in the visualized right great saphenous vein. Left deep veins: Unremarkable. No DVT in the left common femoral, femoral, proximal deep femoral or popliteal veins. The veins demonstrate normal color flow, are normally compressible, with normal phasic flow and/or augmentation response. Left superficial veins: Unremarkable. No thrombus in the visualized left great saphenous vein. Soft tissues: No acute findings. No popliteal cyst. IMPRESSION: Normal bilateral lower extremity duplex venous ultrasound. Electronically signed by: John Lund MD 10/26/22 02:02 AM Duplex Scan Lower Extremity Artery 10/28/22 07:47 BILATERAL LOWER EXTREMITY ARTERIAL DOPPLER ULTRASOUND CLINICAL HISTORY: Leg swelling, ? PAD COMPARISON STUDY: No previous studies for comparison. TECHNIQUE: Bilateral ankle to brachial indices were obtained. Grayscale, color and duplex Doppler sonography of the arterial systems of the lower extremities was then performed. FINDINGS: Right ankle-brachial index measured 1.19 when using the dorsalis pedis and 1.25 when using posterior tibial artery. The left ankle to brachial index measured 1.42 when using the dorsalis pedis and 1.35 when using posterior tibial artery. These may be artifactually elevated. There is mild atherosclerotic aguilar que within the lower extremities. No elevated velocities within the right lower extremity were noted. There is an elevated peak systolic velocity of 373 cm/s within the left anterior tibial artery. No additional elevated velocities were noted. There was biphasic and triphasic flow throughout the lower extremity. IMPRESSION: 1. Mild atherosclerotic plaque within the lower extremities. No vessel occlusion identified. High normal ankle to brachial indices which may be artifactually elevated. 2. Suspected stenosis within the left anterior tibial artery. No additional elevated velocities. 3. Triphasic and biphasic flow throughout the lower extremities. ACT 112: Negative or not required by law. Electronically signed by: Diego Sharif M.D. 10/28/2022 1:48 PM Ordered Studies 10/25/22 22:36 US abdomen ltd ascites Stat 10/25/22 22:37 US venous duplex leg [US venous doppler LE BI] Stat 10/28/22 07:47 US arterial duplex LE BI Routine Hospital Course (1) Shortness of breath: (2) CAD (coronary artery disease): (3) Third degree heart block: (4) Pacemaker: (5) Diabetes mellitus, type II: (6) HTN (hypertension): (7) Dyslipidemia: (8) Pulmonary fibrosis: (9) BPH (benign prostatic hyperplasia): Acute systolic and diastolic heart failure --CXR:Cardiomegaly and cardiac pacemaker without radiographic evidence of congestive failure. Chronic parenchymal changes suggestive of progressive massive fibrosis are similar to prior studies. There is no evidence of superimposed airspace consolidation. Suspect small pleural effusions. --ECHO: Rhythm is ventricular paced with frequent ventricular ectopy and bigeminy. Left ventricle is normal in size. Moderate concentric LVH. Septal motion is consistent with conduction abnormality. Apical wall motion abnormality may reflect pacemaker activation. Moderate global hypokinesis of left ventricle. EF 40 to 45%. Right ventricle is mildly dilated. Aortic valve sclerosis mild, without significant aortic valvular stenosis. Annuloplasty ring is noted in the mitral position. Posterior mitral leaflet is thickened and fixed consistent with prior mitral valve repair surgery. No mitral valve stenosis. Mild tricuspid regurgitation. Right ventricular systolic pressure is elevated at 40 to 50 mmHg. --Venous Doppler:Normal bilateral lower extremity duplex venous ultrasound. --ABD USD:There is small volume ascites. --Received IV Lasix Appreciate cardiology input Monitor volume status, I's and O's, daily weight Pacemaker interrogation requested Monitor renal function, electrolytes Spironolactone added Metoprolol dose decreased as per cardiology. Continue metoprolol succinate 50 mg QAM and 25 mg QPM Monitor and replace electrolytes as needed Diuresing well IV Lasix transition to p.o. Aldactone increased to 25 mg daily Needs follow-up with cardiology upon discharge Nocturnal hypoxia Nocturnal oximetry reviewed Will discharge on supplemental oxygen Needs sleep study as outpatient Peripheral artery disease --Arterial Doppler:Mild atherosclerotic plaque within the lower extremities. No vessel occlusion identified. High normal ankle to brachial indices which may be artifactually elevated. Suspected stenosis within the left anterior tibial artery. No additional elevated velocities. Triphasic and biphasic flow throughout the lower extremities. -- Advised to follow-up with vascular surgery as outpatient --Lipid Panel WNL --Continue aspirin Continue Zetia, statin -- Advised to follow-up with vascular surgery upon discharge COPD/RLD/pulmonary fibrosis/pneumoconiosis Continue home inhalers No signs of exacerbation Saturating low 90s on room air 2 step: Did not qualify for supplemental oxygen with activity H/O NSVT, PVCs H.O pacemaker dysfunction H/O high degree AV block sp PPM Continue metoprolol Continue management per cardiology Mild hyponatremia Likely secondary to HCTZ, volume overload Monitor sodium levels Normocytic anemia ? dilutional secondary to fluid retention FOBT negative Anemia work-up negative Monitor CBC CAD S/P stent H/O mitral valve repair Hypertension Hyperlipidemia Continue current medications DM II Hold PO meds HbA1c of 6.10 September 2022 Continue insulin per protocol DVT Px: Heparin SQ Code Status Full Code Disposition Home today Total Time Total Time Spent Total Time Spent (In Minutes): 45 minutes Discharge Plan Discharge Items Patient Disposition: Home - Self-Care Reason For Visit: CHF Discharge Diagnosis: Acute systolic and diastolic heart failure Nocturnal hypoxia Peripheral artery disease Activity: Per Instructions section Exercise/Sports: Wait until after follow-up appointment Non-emergency contact: Primary Care Provider 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 Morrison in 3-4 weeks Follow-up with vascular surgery as advised for suspected stenosis of left anterior tibial artery --- Use 2 L supplemental oxygen via nasal cannula at bedtime as advised. --Obtain sleep study as outpatient Seek immediate medical attention if your symptoms reoccur or worsen Please take all medications as instructed on discharge list below. Please call if you have any questions or problems. You can reach a [facility] hospitalist on duty at [facility] 24 hours a day by calling [phone] Call your Primary Care doctor if any of the following symptoms or problems start or get worse: * Shortness of breath or difficulty breathing * Wake up at night short of breath * Chest pain * Cough * Swelling of your hands, feet, or legs * More fatigued or tired with your normal activity * Palpitations - sudden fast heart beats WEIGHT * Weigh yourself every morning after using the bathroom. * Use the same scale. * Wear the same amount of clothing. * Write your weight down on a chart. * Call your Primary Care doctor if you gain more than 2-3 pounds in 1-2 days. MEDICATIONS * Use this discharge instruction sheet for medication instructions. * Take your medications at the time your doctor ordered. * Do not skip a dose of your medicines. * If you miss a dose of medicine, take it as soon as possible, but DO NOT DOUBLE A DOSE. * Read your medicine information when you get home. * Know all of the side effects of your medicine. If in doubt, ask your pharmacist * Call your Primary Care doctor's office if you have any side effects. * Be sure all of your doctors know what medicine and herbs you take (including cold, flu, and herbal medicine). Take the following with you to your follow-up doctor appointments: * Weight Chart * Medication List * List of questions Do not drink excessive alcohol, beer or wine. Pending Studies at Discharge: No Stand-Alone Forms: My [facility] [email or web address], Smoking Cessation Medications and DC Order Prescriptions: New furosemide 40 mg Tablet 40 mg PO [id number] Qty: 60 1RF metoprolol succinate 50 mg Tablet Extended Release 24 Hr 50 mg PO QAM Qty: 30 1RF spironolactone 25 mg Tablet 25 mg PO DAILY Qty: 30 1RF metoprolol succinate 25 mg Tablet Extended Release 24 Hr 25 mg PO QPM Qty: 30 1RF potassium chloride 10 mEq capsule, extended release 10 meq PO DAILY Qty: 14 0RF Continued metformin 500 mg Tablet 500 mg PO BIDM cyanocobalamin (vitamin B-12) [Vitamin B-12] 1,000 mcg Tablet 1,000 mcg PO DAILY amlodipine 2.5 mg Tablet 2.5 mg PO DAILY doxazosin 8 mg Tablet 8 mg PO HS losartan 100 mg Tablet 100 mg PO DAILY finasteride 5 mg Tablet 5 mg PO QAM Anoro Ellipta 62.5-25 mcg/actuation Blister With Device 1 inh INHALATION QAM fluticasone propionate 50 mcg/actuation [place],Suspension 2 spray INTRANASAL DAILY rosuvastatin 5 mg tablet 5 mg PO HS amoxicillin 500 mg Capsule 2,000 mg PO DIRECTED PRN (Reason: 1 HOUR PRIOR TO DENTAL APPT.) aspirin 81 mg Tablet,Delayed Release (Dr/Ec) 81 mg PO DAILY acetaminophen [Tylenol Extra Strength] 500 mg Tablet 500 - 1,000 mg PO Q6H PRN (Reason: Pain) ascorbic acid (vitamin C) [Vitamin C] 500 mg Tablet 500 mg PO DAILY nitroglycerin [Nitrostat] 0.4 mg Tablet, Sublingual 0.4 mg sublingual DIRECTED PRN (Reason: Chest Pain) ipratropium bromide [Atrovent] 0.02 % Solution 2.5 ml INHALATION TID PRN (Reason: Wheezing) cholecalciferol (vitamin D3) [Vitamin D3] 25 mcg (1,000 unit) Capsule 25 mcg PO DAILY ezetimibe [Zetia] 10 mg Tablet 10 mg PO DAILY levalbuterol HCl 1.25 mg/0.5 mL solution for nebulization 1.25 mg INH TID PRN (Reason: Shortness Of Breath Or Wheezing) Rx Instructions: must dilute for administration; may also use every 4 hours as needed for shortness of breath or wheezing Discontinued hydrochlorothiazide 25 mg Tablet 12.5 mg PO DAILY metoprolol succinate 50 mg Tablet Extended Release 24 Hr 50 mg PO BID Discharge Orders: Discharge Order (Routine); Ordered 10/29/22 Ordered By: Len Santoyo Admission Data Admit Date/Time: 10/25/22 22:46 Attending Provider: Len Santoyo Admit Provider: Anthony Palomino Primary Care Provider: Brett Wheeler Other Providers: Anthony Palomino ; Rachana Morales ; Kuldeep Chadwick ; Campos West ; Kenji Morrison ; Mendel Richardson ; Jone Rosado ; Jorden Latham ; Evangelina Dudley ; Mariela Soliz ; Rachana Juan ; Rc Schreiber ; Dee Shin
== END 2022-10-29 14:57 | disposition home or self-care (01) | DRG 291 ==
LOC: ED 16:34 → 4W 22:46